=== PATIENT | male | born 1950 | race Caucasian/White ===

== ENCOUNTER → 2016-03-18 | Outpatient (CLI) | payer MEDICARE, MEDICAID | LOC: OD 15:31 | PROVIDERS: ATTEND Internal Medicine | DX: E78.5 Hyperlipidemia, unspecified (principal); Z79.899 Other long term (current) drug therapy; Z53.29 Procedure and treatment not carried out because of patient's decision for other reasons ==

== ENCOUNTER 2016-04-27 09:58 | Observation (INO) | payer MEDICARE, MEDICAID ==
[2016-04-27] MEDS ORDERED: ASPIRIN 81 MG TABLET, CHEWABLE PO ONE (09:59)
--- NOTE | 2016-04-27 10:49 | ER Document Report ---
ED Cardiac - General Chief Complaint: Chest Pain Stated Complaint: CHEST PAIN Information source: Patient Notes: 65-year-old male with past medical history as recorded including COPD, hypertension, high cholesterol, who presents today with the onset around 2 days ago of some substernal nonradiating "sharp", intermittent chest pain. He denies any aggravating relieving factors. He denies any nausea, vomiting, diaphoresis, calf pain or leg swelling above baseline, or worsening cough. Patient has a history of COPD on 3 L nasal cannula at baseline. TRAVEL OUTSIDE OF THE [place] IN LAST 30 DAYS: No - HPI Patient complains to provider of: Chest pain Was the onset of pain: Gradual Is the pain a: New problem Quality of pain: Other - See above Chest pain radiation location: None Severity now: None Severity at worst: Mild Pain level currently: Denies Cardiac risk factors: Hypertension Positive cardiac history: Yes Associated symptoms: Other - See above Exacerbated by: Denies Relieved by: Nothing Similar symptoms previously: No Recently seen / treated by doctor: Yes - Related Data Allergies/Adverse Reactions: lisinopril [Lisinopril] Allergy (Severe, Verified 12/11/13 22:13) angioedema Penicillins Allergy (Unknown, Verified 12/11/13 22:13) Home Medications: Current Home Medications Furosemide [Lasix 40 mg Tablet] 20 mg PO DAILY 04/27/16 [History] Isosorbide Dinitrate 30 mg PO DAILY 04/27/16 [History] Sertraline HCl 1 tab PO DAILY 04/27/16 [History] Past Medical History - General Information source: Patient - Social History Smoking Status: Unknown if Ever Smoked Cigarette use (# per day): No Chew tobacco use (# tins/day): No Smoking Education Provided: No Frequency of alcohol use: None Family History: Reviewed & Not Pertinent - Past Medical History Cardiac Medical History: Reports: Hx Congestive Heart Failure, Hx Hypercholesterolemia, Hx Hypertension, Hx Peripheral Vascular Disease Denies: Hx Atrial Fibrillation, Hx Coronary Artery Disease, Hx Heart Attack, Hx Pulmonary Embolism, Hx Heart Murmur Pulmonary Medical History: Reports: Hx COPD, Hx Pneumonia, Hx Sleep Apnea Denies: Hx Asthma, Hx Bronchitis, Hx Respiratory Failure, Hx Tuberculosis Neurological Medical History: Denies: Hx Cerebrovascular Accident, Hx Seizures Malignancy Medical History: Denies Hx Lung Cancer GI Medical History: Reports: Hx Gastroesophageal Reflux Disease, Hx Ulcer. Denies: Hx Crohn's Disease, Hx Hiatal Hernia, Hx Irritable Bowel, Hx Liver Failure Musculoskeltal Medical History: Reports Hx Arthritis, Denies Hx Fibromyalgia, Denies Hx Multiple Sclerosis, Denies Hx Muscular Dystrophy Psychiatric Medical History: Reports: Hx Depression Denies: Hx Bipolar Disorder, Hx Dementia, Hx Post Traumatic Stress Disorder, Hx Schizophrenia Traumatic Medical History: Denies: Hx Fractures Surgical Hx: Negative Past Surgical History: Denies: Hx Colostomy - Immunizations Hx Diphtheria, Pertussis, Tetanus Vaccination: No Hx Pneumococcal Vaccination: 04/28/11 Review of Systems - Review of Systems Constitutional: denies: Fever EENT: denies: Eye discharge, Nose discharge Cardiovascular: Chest pain. denies: Palpitations, Dizziness Respiratory: denies: Short of breath Gastrointestinal: denies: Vomiting Genitourinary: denies: Dysuria Musculoskeletal: denies: Leg swelling Skin: Other - no hives. denies: Rash Neurological/Psychological: Other - no slurred speech -: Yes All other systems reviewed and negative Physical Exam - Vital signs Vitals: Temp Pulse Resp BP Pulse Ox 98.1 F 71 22 H 116/79 96 04/27/16 10:05 04/27/16 10:05 04/27/16 10:05 04/27/16 10:05 04/27/16 10:05 Notes: Reviewed vital signs and nursing note as charted by RN. CONSTITUTIONAL: Alert and oriented and responds appropriately to questions. Well -appearing; well-nourished HEAD: Normocephalic; atraumatic NECK: Supple without meningismus; non-tender; no cervical lymphadenopathy, no masses CARD: Regular rate and rhythm; no murmurs, no clicks, no rubs, no gallops; symmetric distal pulses RESP: Normal chest excursion without splinting or tachypnea; breath sounds clear and equal bilaterally; no wheezes, no rhonchi, no rales ABD/GI: Normal bowel sounds; soft, non-tender, no rebound, no guarding; elevated BMI BACK: The back appears normal and is non-tender to palpation, there is no CVA tenderness EXT: Normal ROM in all joints; non-tender to palpation; no cyanosis, no effusions, chronic appearing edema, 1+ to bilateral shins. SKIN: Normal color for age and race; warm; dry; good turgor; capillary refill < 2 seconds; no acute lesions noted NEURO: Moves all extremities equally; Motor and sensory function intact PSYCH: The patient's mood and manner are appropriate. Grooming and personal hygiene are appropriate. Course - Re-evaluation Re-evalutation: 04/27/16 10:47 Given the history and physical examination we will order a set of cardiac enzymes, BNP, x-ray of the chest, and reassess. I believe the risk of aortic dissection and pulmonary embolism at this time to be unlikely. Patient endorses actually no shortness of breath above baseline. He denies any calf pain, leg swelling, recent trips or travel. EKG shows a heart of 69, normal sinus rhythm, left axis deviation, no obvious ST elevation or depression. 04/27/16 13:28 Labs as recorded. Patient still denies any active chest pain. X-ray of the chest as recorded. First troponin is negative. Patient will be admitted to the hospitalist for further evaluation and observation. - Vital Signs Vital signs: Temp Pulse Resp BP Pulse Ox 98.1 F 71 18 122/82 96 04/27/16 10:05 04/27/16 10:05 04/27/16 10:16 04/27/16 10:16 04/27/16 10:19 - Laboratory Result Diagrams: 04/27/16 10:30 04/27/16 11:25 Laboratory results interpreted by me: 04/27/16 04/27/16 10:30 11:25 RDW 14.3 H Carbon Dioxide 31 H BUN 21 H Discharge - Discharge Clinical Impression: Chest pain Qualifiers: Chest pain type: unspecified Qualified Code(s): R07.9 - Chest pain, unspecified Condition: Good Disposition: ADMITTED OBSERVATION Admitting Provider: Hospitalist Unit Admitted: Telemetry
[2016-04-27 11:00] LABS: ABSOLUTE EOSINOPHILS # (AUTO) 0.1 10^3/uL (0.0-0.6); ABSOLUTE LYMPHOCYTES (AUTO) 1.6 10^3/uL (0.5-4.7); ABSOLUTE MONOCYTES (AUTO) 0.6 10^3/uL (0.1-1.4); ABSOLUTE NEUT (AUTO) 3.1 10^3/uL (1.7-8.2); BASOPHILS % (AUTO) 0.8 % (0-2); EOSINOPHILS % (AUTO) 2.2 % (0-6); HEMATOCRIT 42.2 % (37.9-51.0); HEMOGLOBIN 13.7 g/dL (13.5-17.0); HGB HCT DIFFERENCE -1.1; LYMPHOCYTES % (AUTO) 28.8 % (13-45); MEAN CORPUSCULAR HEMOGLOBIN 30.1 pg (27.0-33.4); MEAN CORPUSCULAR HGB CONC 32.6 g/dL (32.0-36.0); MEAN CORPUSCULAR VOLUME 92 fl (80-97); MONOCYTES % (AUTO) 11.3 % (3-13); RED BLOOD COUNT 4.56 10^6/uL (4.35-5.55); RED CELL DISTRIBUTION WIDTH 14.3 % (11.5-14.0); SEGMENTED NEUTROPHILS % (AUTO) 56.9 % (42-78); WHITE BLOOD COUNT 5.5 10^3/uL (4.0-10.5)
[2016-04-27 12:03] LABS: ALANINE AMINOTRANSFERASE 27 U/L (21-72); ALBUMIN 3.8 g/dL (3.5-5.0); ALKALINE PHOSPHATASE 92 U/L (38-126); ANION GAP 11 (5-19); ASPARTATE AMINO TRANSFERASE 22 U/L (17-59); BILIRUBIN,DIRECT 0.3 mg/dL (0.0-0.4); BILIRUBIN,TOTAL 0.6 mg/dL (0.2-1.3); BLOOD UREA NITROGEN 21 mg/dL (7-20); CALCIUM 9.4 mg/dL (8.4-10.2); CARBON DIOXIDE 31 mmol/L (22-30); CHLORIDE 101 mmol/L (98-107); CREATINE KINASE 58 U/L (55-170); CREATININE RESULT 0.71 mg/dL (0.52-1.25); GLUCOSE 105 mg/dL (75-110); POTASSIUM 4.9 mmol/L (3.6-5.0); SODIUM 142.6 mmol/L (137-145); TOTAL PROTEIN 6.7 g/dL (6.3-8.2)
[2016-04-27 12:15] LABS: CREATINE KINASE MB 0.93 ng/mL (<4.55)
[2016-04-27 12:16] LABS: TROPONIN I < 0.012 ng/mL
--- NOTE | 2016-04-27 13:11 | EKG REPORT ---
SEVERITY:- OTHERWISE NORMAL ECG - SINUS RHYTHM BORDERLINE LEFT AXIS DEVIATION : Confirmed by: Raul Sinha MD 27-Apr-2016 13:10:10
[2016-04-27] MEDS ORDERED: ACETAMINOPHEN 325 MG TABLET PO PRN (15:31)
[2016-04-27] MEDS ORDERED: ONDANSETRON HCL INJ/PF 4 MG/2 ML SDV IV PRN (15:37)
--- NOTE | 2016-04-27 16:06 | PDOC H&P ---
History of Present Illness Admission Date/PCP: 04/27/16 15:21 DAMIÁN BARTON DO Patient complains of: Chest pain History of Present Illness: SUJATA GONSALEZ is a 65 year old male, w/ HTN, COPD, HLP, PVD came to [facility]. Pt had on and off burning epigastric pain w/ associated CP and tightness, palpitation, but no nausea, vomiting nor SOB. No chills/fever nor chest congestion. Occasional leg pain and on and off LE edema. Pain sometimes occur after eating. Symptoms recur last night and the patient went to sleep and woke up fine. After breakfast, he started to developed the pain again prompting ER visit. Pt given aspirin and was referred for observation. Past Medical History Cardiac Medical History: Reports: Congestive Heart Failure, Hyperlipidema, Hypertension, Peripheral Vascular Disease Denies: Atrial Fibrillation, Coronary Artery Disease, Myocardial Infarction, Pulmonary Embolism, Heart Murmur Pulmonary Medical History: Reports: Chronic Obstructive Pulmonary Disease (COPD) , Pneumonia, Respiratory Failure - On home oxygen, Sleep Apnea Denies: Asthma, Bronchitis, Tuberculosis Neurological Medical History: Denies: Seizures Malignancy Medical History: Denies: Lung Cancer GI Medical History: Reports: Gastroesophageal Reflux Disease Denies: Crohn's Disease, Hiatal Hernia Musculoskeltal Medical History: Reports: Arthritis Denies: Fibromyalgia Psychiatric Medical History: Reports: Depression Denies: Bipolar Disorder, Dementia, Post Traumatic Stress Disorder Past Surgical History Past Surgical History: Denies any recent surgeries Past Surgical History: Denies: Colostomy Social History Information Source: Patient Smoking Status: Never Smoker Frequency of Alcohol Use: None Hx Recreational Drug Use: No Drugs: None Hx Prescription Drug Abuse: No - Advance Directive Resuscitation Status: Full Code Family History Family History: COPD, Hypertension Parental Family History Reviewed: Yes Children Family History Reviewed: Yes Sibling(s) Family History Reviewed.: Yes Medication/Allergy Home Medications: Carvedilol [Coreg 3.125 mg Tablet] 3.125 mg PO Q12 tablet 09/11/15 Famotidine [Pepcid 20 mg Tablet] 20 mg PO Q12 tablet 09/11/15 Ipratropium/Albuterol Sulfate [Combivent Respimat 4 gm Mdi] 1 puff IH Q6 aer.w.adap 09/11/15 Potassium Chloride [Klor-Con 10 Meq Tablet.sa] 40 meq PO WBRKFST tablet.sa 05/23 Atorvastatin Calcium [Lipitor 40 mg Tablet] 40 mg PO DAILY 04/27/16 Furosemide [Lasix] 20 mg PO DAILY 04/27/16 Isosorbide Dinitrate 30 mg PO DAILY 04/27/16 Sertraline HCl 50 mg PO DAILY 04/27/16 Allergies/Adverse Reactions: lisinopril [Lisinopril] Allergy (Severe, Verified 12/11/13 22:13) angioedema Penicillins Allergy (Unknown, Verified 12/11/13 22:13) Review of Systems Constitutional: ABSENT: chills, fever(s), headache(s), night sweats, weight gain , weight loss Eyes: ABSENT: visual disturbances Ears: ABSENT: hearing changes Nose, Mouth, and Throat: ABSENT: mouth pain, sore throat Cardiovascular: PRESENT: chest pain, dyspnea on exertion - Chronic, edema - Chronic, palpitations. ABSENT: orthropnea Respiratory: ABSENT: cough, dyspnea, hemoptysis, sputum Gastrointestinal: PRESENT: abdominal pain - Epigastric discomfort. ABSENT: constipation, diarrhea, hematemesis, hematochezia, melena, nausea, vomiting Genitourinary: ABSENT: difficulty urinating, dysuria, hematuria Musculoskeletal: ABSENT: joint swelling Integumentary: ABSENT: pruritus, rash, wounds Neurological: ABSENT: abnormal gait, abnormal speech, confusion, dizziness, focal weakness, syncope Psychiatric: ABSENT: anxiety, depression, homidical ideation, suicidal ideation Endocrine: ABSENT: cold intolerance, heat intolerance, polydipsia, polyuria Hematologic/Lymphatic: ABSENT: easy bleeding, easy bruising Physical Exam Vital Signs: Temp Pulse Resp BP Pulse Ox 98.1 F 82 16 125/68 96 04/27/16 14:41 04/27/16 14:41 04/27/16 15:01 04/27/16 15:01 04/27/16 15:01 General appearance: PRESENT: no acute distress, cooperative, morbidly obese Head exam: PRESENT: atraumatic, normocephalic Eye exam: PRESENT: conjunctiva pink, EOMI, PERRLA. ABSENT: scleral icterus Ear exam: PRESENT: normal external ear exam. ABSENT: drainage Mouth exam: PRESENT: moist, neck supple, tongue midline Throat exam: ABSENT: post pharyngeal erythema, tonsillar erythema Neck exam: ABSENT: carotid bruit, JVD, lymphadenopathy, thyromegaly Respiratory exam: PRESENT: clear to auscultation jose. ABSENT: rales, rhonchi, wheezes Cardiovascular exam: PRESENT: RRR, other - Slightly distant heart sounds. ABSENT: diastolic murmur, rubs, systolic murmur Pulses: PRESENT: normal dorsalis pedis pul Vascular exam: PRESENT: normal capillary refill GI/Abdominal exam: PRESENT: normal bowel sounds, soft. ABSENT: distended - Obese, guarding, mass, organolmegaly, rebound, tenderness Rectal exam: PRESENT: deferred Extremities exam: PRESENT: full ROM, +1 edema - Bilateral, other - Homans sign negative. ABSENT: calf tenderness, clubbing Neurological exam: PRESENT: alert, awake, oriented to person, oriented to place , oriented to time, oriented to situation, CN II-XII grossly intact. ABSENT: motor sensory deficit Psychiatric exam: PRESENT: appropriate affect, normal mood. ABSENT: homicidal ideation, suicidal ideation Skin exam: PRESENT: dry, intact, warm. ABSENT: cyanosis, rash Assessment & Plan - Diagnosis (1) Chest pain Qualifiers: Chest pain type: unspecified Qualified Code(s): R07.9 - Chest pain, unspecified Is this a current diagnosis for this admission?: Yes (2) COPD (chronic obstructive pulmonary disease) Qualifiers: COPD type: unspecified COPD Qualified Code(s): J44.9 - Chronic obstructive pulmonary disease, unspecified Is this a current diagnosis for this admission?: Yes (3) Hypertension Qualifiers: Hypertension type: essential hypertension Qualified Code(s): I10 - Essential (primary) hypertension Is this a current diagnosis for this admission?: Yes (4) Hyperlipidemia Qualifiers: Hyperlipidemia type: unspecified Qualified Code(s): E78.5 - Hyperlipidemia, unspecified Is this a current diagnosis for this admission?: Yes (5) Peripheral vascular disease Is this a current diagnosis for this admission?: Yes (6) Diastolic CHF Qualifiers: Congestive heart failure chronicity: unspecified congestive heart failure chronicity Qualified Code(s): I50.30 - Unspecified diastolic (congestive ) heart failure Is this a current diagnosis for this admission?: Yes (7) Obstructive sleep apnea Is this a current diagnosis for this admission?: Yes (8) Chronic hypoxemic respiratory failure Is this a current diagnosis for this admission?: Yes (9) Morbid obesity with BMI of 45.0-49.9, adult Is this a current diagnosis for this admission?: Yes (10) Depression Qualifiers: Depression Type: unspecified Qualified Code(s): F32.9 - Major depressive disorder, single episode, unspecified Is this a current diagnosis for this admission?: Yes (11) Peptic ulcer disease Is this a current diagnosis for this admission?: Yes - Time Time Spent: 30 to 50 Minutes - Plan Summary Plan Summary: Admit to observation. Start aspirin and continue nitrates. Give supplemental oxygen, obtain d-dimer, serial cardiac enzymes. Stress test in am when enzymes are negative. DVT prophylaxis with lovenox. Further testing depends on the initial evaluation as outlined above.
[2016-04-27] MEDS ORDERED: ENOXAPARIN SODIUM INJ 40 MG/0.4 ML DISP.SYRIN SUBCUT ONE (16:30)
[2016-04-27] MEDS: DOCUSATE SODIUM 100 MG CAPSULE PO SCH (18:41)
[2016-04-27] MEDS: LANSOPRAZOLE 30 MG TAB.RAP.DR PO SCH (18:41)
[2016-04-27] MEDS: IPRATROPIUM/ALBUTEROL 120 PUFF/4 GM MDI IH SCH (18:42)
[2016-04-27] MEDS: FAMOTIDINE 20 MG TABLET PO SCH (22:11)
[2016-04-27] MEDS: ATORVASTATIN CALCIUM 40 MG TABLET PO SCH (22:11)
[2016-04-27] MEDS: CARVEDILOL 3.125 MG TABLET PO SCH (22:11)
[2016-04-28] MEDS: IPRATROPIUM/ALBUTEROL 120 PUFF/4 GM MDI IH SCH ×4 (00:18→17:30)
[2016-04-28] MEDS: LANSOPRAZOLE 30 MG TAB.RAP.DR PO SCH ×2 (05:25→17:30)
[2016-04-28] MEDS ORDERED: (PENDING PHARMACY ID) (Isosorbide Dinitrate [Isosorbide Dinitrate] 30 MG) PO SCH (10:00)
[2016-04-28] MEDS: DOCUSATE SODIUM 100 MG CAPSULE PO SCH ×2 (10:51→17:30)
[2016-04-28] MEDS: ASPIRIN 81 MG TABLET, CHEWABLE PO SCH (10:52)
[2016-04-28] MEDS: POTASSIUM CHLORIDE 10 MEQ TABLET.SA PO SCH (10:52)
[2016-04-28] MEDS: CARVEDILOL 3.125 MG TABLET PO SCH ×2 (10:52→22:41)
[2016-04-28] MEDS: FAMOTIDINE 20 MG TABLET PO SCH ×2 (10:53→22:41)
[2016-04-28] MEDS: ENOXAPARIN SODIUM INJ 40 MG/0.4 ML DISP.SYRIN SUBCUT SCH (10:53)
[2016-04-28] MEDS: ISOSORBIDE DINITRATE 10 MG TABLET PO SCH (10:53)
[2016-04-28] MEDS: SERTRALINE HCL 50 MG TABLET PO SCH (10:53)
[2016-04-28] MEDS: FUROSEMIDE 20 MG TABLET PO SCH (10:53)
--- NOTE | 2016-04-28 13:53 | PDOC PROGRESS REPORT ---
Subjective Progress Note for:: 04/28/16 Subjective:: Patient denies any chest pain or shortness of breath. No PND or orthopnea. No nausea or vomiting. No diaphoresis. CT scan of the chest did not reveal any pulmonary embolism but did show infiltrate and/or atelectasis. Stress lab reports that patient requires 48 hours to complete the stress test procedure. Physical Exam Vital Signs: Temp Pulse Resp BP Pulse Ox 98.3 F 70 19 158/73 H 95 04/28/16 04:19 04/28/16 07:00 04/28/16 04:19 04/28/16 04:19 04/28/16 12:58 Intake & Output 04/27/16 04/28/16 04/29/16 06:59 06:59 06:59 Intake Total 1100 Balance 1100 Weight 163.3 kg General appearance: PRESENT: no acute distress, cooperative, morbidly obese Head exam: PRESENT: normocephalic Eye exam: PRESENT: EOMI, PERRLA. ABSENT: scleral icterus Mouth exam: PRESENT: moist, neck supple Neck exam: ABSENT: JVD Respiratory exam: PRESENT: clear to auscultation jose. ABSENT: rhonchi, wheezes Cardiovascular exam: PRESENT: RRR. ABSENT: gallop GI/Abdominal exam: PRESENT: soft. ABSENT: distended - Morbid obesity, tenderness Extremities exam: ABSENT: pedal edema Neurological exam: PRESENT: alert, awake, oriented to person, oriented to place , oriented to time, oriented to situation Skin exam: PRESENT: dry, warm. ABSENT: cyanosis Results Laboratory Results: 04/27/16 04/27/16 04/27/16 16:30 16:30 19:27 Creatine Kinase 61 86 Troponin I < 0.012 04/27/16 19:27 Creatine Kinase Troponin I < 0.012 Impressions: Chest/Abdomen CTA 04/27/16 00:00 IMPRESSION: Airspace consolidation in the left lung base which could represent atelectatic changes or pneumonic infiltrate. No pleural effusions are identified. No pneumothorax is seen. No evidence for pulmonary embolic disease. Other findings as noted above Assessment & Plan - Diagnosis (1) Chest pain Qualifiers: Chest pain type: unspecified Qualified Code(s): R07.9 - Chest pain, unspecified Is this a current diagnosis for this admission?: Yes (2) COPD (chronic obstructive pulmonary disease) Qualifiers: COPD type: unspecified COPD Qualified Code(s): J44.9 - Chronic obstructive pulmonary disease, unspecified Is this a current diagnosis for this admission?: Yes (3) Hypertension Qualifiers: Hypertension type: essential hypertension Qualified Code(s): I10 - Essential (primary) hypertension Is this a current diagnosis for this admission?: Yes (4) Hyperlipidemia Qualifiers: Hyperlipidemia type: unspecified Qualified Code(s): E78.5 - Hyperlipidemia, unspecified Is this a current diagnosis for this admission?: Yes (5) Peripheral vascular disease Is this a current diagnosis for this admission?: Yes (6) Diastolic CHF Qualifiers: Congestive heart failure chronicity: unspecified congestive heart failure chronicity Qualified Code(s): I50.30 - Unspecified diastolic (congestive ) heart failure Is this a current diagnosis for this admission?: Yes (7) Obstructive sleep apnea Is this a current diagnosis for this admission?: Yes (8) Chronic hypoxemic respiratory failure Is this a current diagnosis for this admission?: Yes (9) Morbid obesity with BMI of 45.0-49.9, adult Is this a current diagnosis for this admission?: Yes (10) Depression Qualifiers: Depression Type: unspecified Qualified Code(s): F32.9 - Major depressive disorder, single episode, unspecified Is this a current diagnosis for this admission?: Yes (11) Peptic ulcer disease Is this a current diagnosis for this admission?: Yes - Time Time Spent with patient: 15-24 minutes - Plan Summary Plan Summary: Patient's CT scan findings likely atelectasis. Will do incentive spirometry. Patient denies any symptoms of respiratory tract infection at this time. WBC has been normal. Patient is afebrile. Awaiting stress test result. It will be 2 stages as reported. Continue other medication is supportive care.
[2016-04-28] MEDS: ATORVASTATIN CALCIUM 40 MG TABLET PO SCH (22:41)
[2016-04-29] MEDS: IPRATROPIUM/ALBUTEROL 120 PUFF/4 GM MDI IH SCH ×4 (00:54→17:16)
[2016-04-29] MEDS: LANSOPRAZOLE 30 MG TAB.RAP.DR PO SCH ×2 (05:35→17:15)
[2016-04-29] MEDS: ENOXAPARIN SODIUM INJ 40 MG/0.4 ML DISP.SYRIN SUBCUT SCH (08:10)
[2016-04-29] MEDS: POTASSIUM CHLORIDE 10 MEQ TABLET.SA PO SCH (08:11)
[2016-04-29] MEDS: FUROSEMIDE 20 MG TABLET PO SCH (12:38)
[2016-04-29] MEDS: ASPIRIN 81 MG TABLET, CHEWABLE PO SCH (12:41)
[2016-04-29] MEDS: DOCUSATE SODIUM 100 MG CAPSULE PO SCH ×2 (12:41→17:15)
[2016-04-29] MEDS: CARVEDILOL 3.125 MG TABLET PO SCH (12:41)
[2016-04-29] MEDS: SERTRALINE HCL 50 MG TABLET PO SCH (12:41)
[2016-04-29] MEDS: FAMOTIDINE 20 MG TABLET PO SCH (12:41)
[2016-04-29] MEDS: ISOSORBIDE DINITRATE 10 MG TABLET PO SCH (12:42)
--- NOTE | 2016-04-29 13:16 | Physician Advisory Note ---
Physician Advisor ProgressNote .: Pursuant to the plan for Knapp Jun, I have reviewed the medical record for this patient. Physician Advisor Statement: Please specify: 1. most likely cause of CP: "CP, suspect likely due to ____" 2. "chronic diast CHF" [coders not allowed to assume chronicity] Thanks! CK
[2016-04-29] MEDS ORDERED: REGADENOSON INJ 0.4 MG/5 ML DISP.SYRIN IV ONE (13:19)
[2016-04-29] MEDS ORDERED: AMINOPHYLLINE INJ/PF 250 MG/10 ML SDV IV ONE (13:19)
--- NOTE | 2016-04-29 16:17 | DRAGON STRESS TEST REPORT ---
INTRAVENOUS LEXISCAN CARDIOLITE STRESS TEST USING SINGLE PHOTON EMMISION COMPUTERIZED TOMOGRAPHIC. DATE OF PROCEDURE: April 29, 2016 INDICATION : Chest pain CARDIAC RISK FACTORS: Hypertension, dyslipidemia RESTING EKG: Sinus rhythm, no Baseline ST segment changes noted. STRESS EKG: No significant changes noted with LexiScan bolus REASON FOR TERMINATION: Protocol. PROCEDURE REPORT: Baseline heart rate 66 beats per minute with blood pressure of 131/81. Patient had no significant complaints. Heart rate at 2 minutes post bolus 89 with a blood pressure of 117/70. 3 minutes post bolus heart rate 85 with blood pressure of 118/69. No significant EKG changes were noted. Patient had no significant complaints during the procedure or postprocedure. Patient injected with Aminophyllin 75 mg at 3 minutes or later after Lexiscan bolus. CONCLUSIONS: Normal EKG and hemodynamic response to IV LexiScan. NUCLEAR DATA: 2 day protocol, rest and stress. At rest the patient was given 42.2 millicuries of technetium 99 sestamibi injected intravenously. As per protocol rest gated SPECT images were obtained. Subsequently the patient was given intravenous LexiScan at a dose of 0.4 mg in 5 mL intravenously, followed by flush with normal saline. Subsequently the stress dose of 43.7 millicuries of technetium 99 sestamibi was injected intravenously. As per protocol stress gated images were obtained. NUCLEAR INTERPRETATION: Both raw and processed data were used for interpretation. Visual, qualitative, computer-generated quantitative data was used. There was good myocardial uptake of technetium compound. Motion artifact and soft tissue attenuations were noted. Increased visceral uptake was noted. No definitive areas of transient perfusion defect noted. No definitive areas of fixed perfusion defect or scars noted. EKG gated imaging showed LV EF at 45 %, rest and stress gated EF similar visually. T. I D. ratio was 0.59. Lung heart ratio noted to be within normal limits 0.34. No significant extracardiac and abnormal radiotracer activities were noted. RV free wall uptake was noted to be mildly increased. IMPRESSION: Also refer to comments under nuclear interpretation. Also test results needs to be interpreted in the context of pretest probability. 1. There is no definitive scintigraphic evidence of LexiScan induced myocardial ischemia. 2. There is no definitive scintigraphic evidence of myocardial infarction/scar. 3. EKG gated imaging shows left ejection fraction of approximately 45 % with mild diffuse hypokinesia. RV uptake noted to be increased. 4. Clinical correlation requested as occasionally single vessel disease or balanced ischemia could be missed. In approximately 10% of the cases Lexiscan may not cause adequate vasodilatory stress. RECOMMENDATIONS: Aggressive risk factor modification, medical therapy. Clinical correlation with echocardiogram derived ejection fraction. Inability to exercise by itself can lead to increased cardiovascular event risks. Consider cardiology consultation and or follow-up if clinically indicated. I AM AVAILABLE FOR CARDIOLOGY CONSULTATION AND FOLLOWUP IF REQUESTED BY PMD Jacquelin Garvin M.D., [employer] compressor assembler, Board certified in cardiovascular diseases, Nuclear cardiology, Echocardiography Cardiac CT and cardiac MRI Ph. [phone] [facility] [facility]
--- NOTE | 2016-04-29 17:21 | PDOC DISCHARGE SUMMARY ---
General - Admit/Disc Date/PCP Admission Date/Primary Care Provider: 04/27/16 15:31 DAMIÁN BARTON, Discharge Date: 04/29/16 - Discharge Diagnosis (1) Chest pain Is this a current diagnosis for this admission?: Yes (2) COPD (chronic obstructive pulmonary disease) Is this a current diagnosis for this admission?: Yes (3) Hypertension Is this a current diagnosis for this admission?: Yes (4) Hyperlipidemia Is this a current diagnosis for this admission?: Yes (5) Peripheral vascular disease Is this a current diagnosis for this admission?: Yes (6) Diastolic CHF Is this a current diagnosis for this admission?: Yes (7) Obstructive sleep apnea Is this a current diagnosis for this admission?: Yes (8) Chronic hypoxemic respiratory failure Is this a current diagnosis for this admission?: Yes (9) Morbid obesity with BMI of 45.0-49.9, adult Is this a current diagnosis for this admission?: Yes (10) Depression Is this a current diagnosis for this admission?: Yes (11) Peptic ulcer disease Is this a current diagnosis for this admission?: Yes - Additional Information Resuscitation Status: Full Code Discharge Diet: Cardiac - low-fat low-salt Discharge Activity: Activity As Tolerated, Balance Activity w/Rest Home Medications: Carvedilol [Coreg 3.125 mg Tablet] 3.125 mg PO Q12 tablet 09/11/15 Famotidine [Pepcid 20 mg Tablet] 20 mg PO Q12 tablet 09/11/15 Ipratropium/Albuterol Sulfate [Combivent Respimat 4 gm Mdi] 1 puff IH Q6 aer.w.adap 09/11/15 Potassium Chloride [Klor-Con 10 Meq Tablet.sa] 40 meq PO WBRKFST tablet.sa 05/23 Atorvastatin Calcium [Lipitor 40 mg Tablet] 40 mg PO DAILY 04/27/16 Furosemide [Lasix] 20 mg PO DAILY 04/27/16 Isosorbide Dinitrate 30 mg PO DAILY 04/27/16 Sertraline HCl 50 mg PO DAILY 04/27/16 Aspirin [Aspirin 81 mg Chewable Tablet] 81 mg PO DAILY tab.chew 04/29/16 Additional Information: Follow-up with Dr. Garvin for possible sleep study History of Present Illness Patient complains of: Chest pain History of Present Illness: SUJATA GONSALEZ is a 65 year old male, w/ HTN, COPD, HLP, PVD came to hospital [facility] . Pt had on and off burning epigastric pain w/ associated CP and tightness, palpitation, but no nausea, vomiting nor SOB. No chills/fever nor chest congestion. Occasional leg pain and on and off LE edema. Pain sometimes occur after eating. Symptoms recur last night and the patient went to sleep and woke up fine. After breakfast, he started to developed the pain again prompting ER visit. Pt given aspirin and was referred for observation. Hospital Course Hospital Course: The patient was admitted to observation. A d-dimer was obtained which is mildly elevated. CT scan of the chest did not reveal pulmonary embolism, did show atelectases or infiltrate. Patient denies any symptoms of respiratory tract infection and no fever was noted. WBC was normal. Likely finding is atelectasis. Patient was placed on antiplatelet therapy. DVT prophylaxis with Lovenox was placed. Supplemental oxygen was given. Stress test was eventually performed showing no reversible ischemia. The patient's chest pain resolved. Patient was advised to see cardiology on an outpatient basis for follow-up and possible sleep study. The rest of the hospital stays unremarkable. Physical Exam Vital Signs: Temp Pulse Resp BP Pulse Ox 98.1 F 75 16 118/61 98 04/29/16 15:33 04/29/16 15:33 04/29/16 15:33 04/29/16 15:33 04/29/16 15:33 Intake & Output 04/28/16 04/29/16 04/30/16 06:59 06:59 06:59 Intake Total 1100 840 240 Balance 1100 840 240 Weight 163.3 kg 163.3 kg General appearance: PRESENT: no acute distress, cooperative, morbidly obese Head exam: PRESENT: normocephalic Eye exam: PRESENT: EOMI, PERRLA Mouth exam: PRESENT: moist, neck supple Neck exam: ABSENT: JVD Respiratory exam: PRESENT: clear to auscultation jose. ABSENT: rhonchi, wheezes Cardiovascular exam: PRESENT: RRR. ABSENT: gallop GI/Abdominal exam: PRESENT: hypoactive bowel sounds, soft, other - Obese and soft. ABSENT: tenderness Extremities exam: PRESENT: other - Trace lower extremity edema Neurological exam: PRESENT: alert, awake, oriented to person, oriented to place , oriented to time, oriented to situation Skin exam: PRESENT: dry, warm. ABSENT: cyanosis Results Laboratory Results: 04/27/16 04/27/16 04/27/16 16:30 16:30 19:27 Creatine Kinase 61 86 Troponin I < 0.012 04/27/16 19:27 Creatine Kinase Troponin I < 0.012 Impressions: Chest/Abdomen CTA 04/27/16 00:00 IMPRESSION: Airspace consolidation in the left lung base which could represent atelectatic changes or pneumonic infiltrate. No pleural effusions are identified. No pneumothorax is seen. No evidence for pulmonary embolic disease. Other findings as noted above Qualifiers PATEINT BEING DISCHARGED WITH ANY OF THE FOLLOWING DIAGNOSIS?: No Plan Discharge Plan: Follow-up with primary care physician in one week. Follow-up with Dr. Garvin in 1-2 weeks. Time Spent: Less than 30 Minutes
[2016-04-29 18:25] VITALS: BP 124/76
== END 2016-04-29 18:30 | disposition home or self-care (01) ==
LOC: ER 09:58 → UNDOADMOB 13:40 → EH 13:40 → UNDOADMOB 15:21 → EH 15:31 → 4W 16:09
DX: R07.9 Chest pain, unspecified (principal); J44.9 Chronic obstructive pulmonary disease, unspecified; I10 Essential (primary) hypertension; E78.5 Hyperlipidemia, unspecified; I73.9 Peripheral vascular disease, unspecified; I50.30 Unspecified diastolic (congestive) heart failure; G47.33 Obstructive sleep apnea (adult) (pediatric); J96.91 Respiratory failure, unspecified with hypoxia; E66.01 Morbid (severe) obesity due to excess calories; Z68.42 Body mass index [BMI] 45.0-49.9, adult; F32.9 Major depressive disorder, single episode, unspecified; K27.9 Peptic ulcer, site unspecified, unspecified as acute or chronic, without hemorrhage or perforation
CPT/HCPCS: 93005; 99285; 36415; 82553; 82550; 85025; 80053; 84484; 85379; 83880; 93017; 71010; 78452; 71275; 94799; 93010; A9500; J2785; A9270 ×21; J3490 ×5; J1650 ×3; J0280; Q9969; G0378

== ENCOUNTER → 2016-06-16 | Outpatient (CLI) | payer MEDICARE, MEDICAID ==
[2016-06-16 12:11] LABS: ARTERIAL BLOOD BASE EXCESS 7.4 mmol/L; ARTERIAL BLOOD O2 SATURATION 95.7 % (94-98)
== END ==
LOC: OD 11:29
PROVIDERS: ATTEND Internal Medicine Pulmonary Disease
DX: J96.20 Acute and chronic respiratory failure, unspecified whether with hypoxia or hypercapnia (principal)
CPT/HCPCS: 36600; 71020; 82803

== ENCOUNTER 2016-07-27 17:51 | Emergency (ER) | payer MEDICARE, MEDICAID ==
[2016-07-27 18:29] LABS: ABSOLUTE EOSINOPHILS # (AUTO) 0.2 10^3/uL (0.0-0.6); ABSOLUTE LYMPHOCYTES (AUTO) 2.1 10^3/uL (0.5-4.7); ABSOLUTE MONOCYTES (AUTO) 0.7 10^3/uL (0.1-1.4); ABSOLUTE NEUT (AUTO) 2.6 10^3/uL (1.7-8.2); BASOPHILS % (AUTO) 0.9 % (0-2); EOSINOPHILS % (AUTO) 2.9 % (0-6); HEMATOCRIT 41.5 % (37.9-51.0); HEMOGLOBIN 13.4 g/dL (13.5-17.0); HGB HCT DIFFERENCE -1.3; MEAN CORPUSCULAR HEMOGLOBIN 29.6 pg (27.0-33.4); MEAN CORPUSCULAR HGB CONC 32.3 g/dL (32.0-36.0); MEAN CORPUSCULAR VOLUME 92 fl (80-97); MONOCYTES % (AUTO) 12.2 % (3-13); RED BLOOD COUNT 4.53 10^6/uL (4.35-5.55); RED CELL DISTRIBUTION WIDTH 13.9 % (11.5-14.0); WHITE BLOOD COUNT 5.6 10^3/uL (4.0-10.5)
[2016-07-27 18:45] LABS: ANION GAP 10 (5-19); BLOOD UREA NITROGEN 15 mg/dL (7-20); CALCIUM 9.1 mg/dL (8.4-10.2); CARBON DIOXIDE 31 mmol/L (22-30); CHLORIDE 98 mmol/L (98-107); CREATININE RESULT 0.72 mg/dL (0.52-1.25); GLUCOSE 101 mg/dL (75-110); POTASSIUM 4.7 mmol/L (3.6-5.0); SODIUM 138.7 mmol/L (137-145)
--- NOTE | 2016-07-27 18:48 | RADIOLOGY REPORT (SQ) ---
EXAM DESCRIPTION: CHEST SINGLE VIEW COMPLETED DATE/TIME: 07/27/2016 6:42 pm REASON FOR STUDY: chastity, cp COMPARISON: 06/16/2016 EXAM PARAMETERS: NUMBER OF VIEWS: One view. TECHNIQUE: Single frontal radiographic view of the chest acquired. RADIATION DOSE: NA LIMITATIONS: None. FINDINGS: LUNGS AND PLEURA: Basilar opacities is consistent with atelectasis. Lung callaway are other wade clear. There appeared re- chronic changes in the left costophrenic angle. Small left effusion cannot be excluded. MEDIASTINUM AND HILAR STRUCTURES: No masses. Contour normal. HEART AND VASCULAR STRUCTURES: Stable in appearance. BONES: No acute findings. HARDWARE: None in the chest. OTHER: No other significant finding. IMPRESSION: Relatively stable chest with basilar atelectasis. There chronic changes in the left cos tophrenic angle stable from June of this year. TECHNICAL DOCUMENTATION: JOB ID: [id number]
--- NOTE | 2016-07-27 18:49 | ER Document Report ---
ED General - General Chief Complaint: Shortness Of Breath Stated Complaint: SHORTNESS OF BREATH Time Seen by Provider: 07/27/16 18:21 Notes: Patient is a 65-year-old male with past medical history of COPD, chronic oxygen dependence, morbid obesity, peripheral vascular disease who presents with an episode in which he coughed up a small amount, approximately a teaspoon of clotted blood. Patient reports that he has had a chronic cough ever since he had a pneumonia almost 1 year ago. Denies any prior episodes of hemoptysis. Since that he has shortness of breath at baseline that is not new or different today. Likewise he notes that he chronically has some diffuse chest wall discomfort that has been present for a long period of time and again is not new or different today. His main reason for coming to the emergency department today is his concern regarding the small volume hemoptysis. He has no history of DVT or pulmonary embolus. He denies any abdominal pain. Nothing is improved or worsened his symptoms. He has not seen his primary care doctor regarding today's concerns. TRAVEL OUTSIDE OF THE [place] IN LAST 30 DAYS: No - Related Data Allergies/Adverse Reactions: lisinopril [Lisinopril] Allergy (Severe, Verified 07/27/16 18:28) angioedema Penicillins Allergy (Unknown, Verified 07/27/16 18:28) Home Medications: Current Home Medications Glycopyrrolate/Formoterol Fum [Bevespi Aerosphere Inhaler] 2 puff IH DAILY 07/27 [History] Triamcinolone Aceton/Silicones [Dermazone 0.1% Kit] 1 each TP BID 07/27/16 [ History] Past Medical History - General Information source: Patient - Social History Smoking Status: Former Smoker Frequency of alcohol use: None Drug Abuse: None Lives with: Alone Family History: COPD, Hypertension - Past Medical History Cardiac Medical History: Reports: Hx Congestive Heart Failure, Hx Hypercholesterolemia, Hx Hypertension, Hx Peripheral Vascular Disease Denies: Hx Atrial Fibrillation, Hx Coronary Artery Disease, Hx Heart Attack, Hx Pulmonary Embolism, Hx Heart Murmur Pulmonary Medical History: Reports: Hx COPD, Hx Pneumonia, Hx Respiratory Failure - On home oxygen, Hx Sleep Apnea Denies: Hx Asthma, Hx Bronchitis, Hx Tuberculosis Neurological Medical History: Denies: Hx Cerebrovascular Accident, Hx Seizures Malignancy Medical History: Denies Hx Lung Cancer GI Medical History: Reports: Hx Gastroesophageal Reflux Disease, Hx Ulcer. Denies: Hx Crohn's Disease, Hx Hiatal Hernia, Hx Irritable Bowel, Hx Liver Failure Musculoskeltal Medical History: Reports Hx Arthritis, Denies Hx Fibromyalgia, Denies Hx Multiple Sclerosis, Denies Hx Muscular Dystrophy Psychiatric Medical History: Reports: Hx Depression Denies: Hx Bipolar Disorder, Hx Dementia, Hx Post Traumatic Stress Disorder, Hx Schizophrenia Traumatic Medical History: Denies: Hx Fractures Surgical Hx: Negative Past Surgical History: Denies: Hx Colostomy - Immunizations Hx Diphtheria, Pertussis, Tetanus Vaccination: No Hx Pneumococcal Vaccination: 04/28/11 Review of Systems - Review of Systems Notes: Constitutional: Negative for fever. HENT: Negative for sore throat. Eyes: Negative for visual changes. Cardiovascular: Positive for chest pain. Respiratory: Positive for cough and a single episode of small-volume hemoptysis Gastrointestinal: Negative for abdominal pain, vomiting or diarrhea. Genitourinary: Negative for dysuria. Musculoskeletal: Negative for back pain. Skin: Negative for rash. Neurological: Negative for headaches, weakness or numbness. 10 point ROS negative except as marked above and in HPI. Physical Exam - Vital signs Vitals: Pulse Ox 94 07/27/16 17:54 Interpretation: Normal Notes: PHYSICAL EXAMINATION: GENERAL: Well-appearing, well-nourished and in no acute distress. Morbidly obese HEAD: Atraumatic, normocephalic. EYES: Pupils equal round and reactive to light, extraocular movements intact, sclera anicteric, conjunctiva are normal. ENT: nares patent, oropharynx clear without exudates. Moderately dry mucous membranes. NECK: Normal range of motion, supple without lymphadenopathy LUNGS: Mildly diminished breath sounds at the left base. Scattered expiratory wheezing HEART: Regular rate and rhythm without murmurs ABDOMEN: Obese abdomen. Soft, nontender, normoactive bowel sounds. No guarding , no rebound. No masses appreciated. EXTREMITIES: Normal range of motion, no pitting or edema. No cyanosis. NEUROLOGICAL: No focal neurological deficits. Moves all extremities spontaneously and on command. PSYCH: Normal mood, normal affect. SKIN: Warm, Dry, normal turgor, no rashes or lesions noted. Course - Re-evaluation Re-evalutation: 07/27/16 18:47 Patient is a 65-year-old male presenting with concerns of a small volume of hemoptysis. Patient states that he coughed up approximately a teaspoon of blood. He has had a chronic cough since being diagnosed with a bilateral pneumonia apparently a year ago. He denies any increased shortness of breath today relative to his chronic shortness of breath requires 3 L of supplemental oxygen. Patient is overall well in appearance but is noted to be morbidly obese with obvious vascular insufficiency in all 4 extremities. Vitals at time of assessment are within normal limits. He has not had any additional hemoptysis. Lungs are clear bilaterally after he received 2 albuterol and Atrovent treatment by EMS. Patient also notes that he has had intermittent chest discomfort for the past several months not new, different or more concerning for him today. Will obtain chest x-ray, basic labs, and reassess. Not suspect an acute pulmonary embolus, aortic dissection, ACS at this time based on exam and history as well as vitals. I suspect patient likely has a component of bronchial irritation after recurrent cough for the past several months. 07/27/16 19:25 Chest x-ray, EKG, labs all unremarkable. Troponin negative. Patient had a normal Cardiolite stress test just 3 months ago and I do not believe the etiology of his presentation is cardiac in origin. Remains without tachypnea, tachycardia or further episodes of hemoptysis. At this time will discharge with return precautions and follow-up recommendations. Verbal discharge instructions given a the bedside and opportunity for questions given. Medication warnings reviewed. Patient is in agreement with this plan and has verbalized understanding of return precautions and the need for primary care follow-up in the next 24-72 hours. - Vital Signs Vital signs: Temp Pulse Resp BP Pulse Ox 98.3 F 19 121/64 94 07/27/16 20:20 07/27/16 20:20 07/27/16 20:20 07/27/16 20:20 - Laboratory Result Diagrams: 07/27/16 18:08 07/27/16 18:08 Laboratory results interpreted by me: 07/27/16 07/27/16 18:08 18:08 Hgb 13.4 L Carbon Dioxide 31 H - Diagnostic Test Radiology reviewed: Image reviewed, Reports reviewed Radiology results interpreted by me: 07/27/16 19:26 Chest x-ray: No acute infiltrate - EKG Interpretation by Me Additional EKG results interpreted by me: 06/20/17 19:26 Normal sinus rhythm. Rate 69. No ST elevations or depressions. QTC is 403. Discharge - Discharge Clinical Impression: Cough with hemoptysis, Shortness of breath Condition: Good Disposition: HOME, SELF-CARE Additional Instructions: Please follow-up with your primary doctor and incident response coordinator within the next 3-4 days. Your labs and chest x-ray today are without concerning findings. Take the Tessalon Perles as needed for persistent coughing. Return if you develop increased shortness of breath, chest pain, pass out, have additional bloody sputum, or any other symptoms that are worrisome to you. Prescriptions: Benzonatate [Tessalon Perle 100 mg Capsule] 100 mg PO Q8HP PRN #40 cap PRN Reason: Referrals: DAMIÁN BARTON DO [Primary Care Provider] - Follow up in 3-5 days
[2016-07-27 20:36] VITALS: BP 121/64
--- NOTE | 2016-07-28 08:42 | EKG REPORT ---
SEVERITY:- OTHERWISE NORMAL ECG - SINUS RHYTHM LEFT AXIS DEVIATION : Confirmed by: Edith Lemus MD 28-Jul-2016 08:41:43
== END 2016-07-27 20:42 | disposition home or self-care (01) ==
LOC: ER 17:51
DX: R04.2 Hemoptysis (principal); J44.9 Chronic obstructive pulmonary disease, unspecified; Z99.81 Dependence on supplemental oxygen; R07.89 Other chest pain; R06.02 Shortness of breath; I10 Essential (primary) hypertension; E66.01 Morbid (severe) obesity due to excess calories; Z68.42 Body mass index [BMI] 45.0-49.9, adult; Z88.8 Allergy status to other drugs, medicaments and biological substances; Z87.891 Personal history of nicotine dependence; Z87.01 Personal history of pneumonia (recurrent); Z88.0 Allergy status to penicillin; I73.9 Peripheral vascular disease, unspecified
CPT/HCPCS: 36415; 71010; 80048; 84484; 85025; 93005; 93010; 99285

== ENCOUNTER → 2016-09-22 | Outpatient (CLI) | payer MEDICARE, MEDICAID ==
--- NOTE | 2016-09-22 11:21 | RADIOLOGY REPORT (SQ) ---
EXAM DESCRIPTION: VENOUS REFLUX COMPLETED DATE/TIME: 09/22/2016 10:46 am REASON FOR STUDY: ULCER L97.211 NON-PRS CHRONIC ULCER OF RIGHT CALF LIMITED TO BRKDW COMPARISON: None. TECHNIQUE: Multiple real-time grayscale sonographic images were obtained for evaluation of the right and left lower extremity. Doppler and duplex evaluation of the venous structures was performed. LIMITATIONS: None. FINDINGS: The right and left common femoral, superficial femoral, popliteal and infrapopliteal veins are patent, with reflux in the left apophyseal vein lasting 4.1 seconds. Remainder of the deep veno us systems is otherwise unremarkable bilaterally. Right greater saphenous vein: In the distal right thigh, the right saphenous vein measures 5 mm in di ameter. There is venous reflux lasting 2.85 seconds. Right small saphenous vein: No insufficiency Left greater saphenous vein: No insufficiency Left small saphenous vein: No insufficiency OTHER: No solid or cystic masses or other abnormal findings. No significant perforating veins are identifie d IMPRESSION: Minimal reflux in the distal right thigh greater saphenous vein. Moderate reflux in the left popliteal vein. No clinically significant left leg venous reflux TECHNICAL DOCUMENTATION: JOB ID: [id number]- All Rights Reserved
--- NOTE | 2016-09-22 14:20 | RADIOLOGY REPORT (SQ) ---
EXAM DESCRIPTION: ARTERIAL LOWER EXTREM BILAT COMPLETED DATE/TIME: 09/22/2016 10:46 am REASON FOR STUDY: ULCER L97.211 NON-PRS CHRONIC ULCER OF RIGHT CALF LIMITED TO BRKDW COMPARISON: 04/10/2012 lower extremity arterial Doppler TECHNIQUE: Dynamic and static peter scale and color images acquired of the lower extremity arteries. Additional selected spectral images recorded. ABIs recorded. LIMITATIONS: None. FINDINGS: RIGHT LEG: ABIS: Normal, over 1.0. INFLOW ARTERIES: Normal, no obstruction evident. FEMORAL ARTERIES:Multiphasic waveforms. Normal, no velocity elevation to suggest focal stenosis. Norm al color Doppler evaluation. No aneurysm. POPLITEAL ARTERY:Multiphasic waveforms. Normal, no velocity elevation to suggest focal stenosis. Norm al color Doppler evaluation. No aneurysm. PATENT TIBIOPERONEAL TRUNK AND 3 VESSEL RUNOFF: Yes, normal anterior tibial and posterior tibial jason rocio. Peroneal artery not evaluated. TBI: Not performed. OTHER: No other significant finding. LEFT LEG: ABIS: Normal, over 1.0. INFLOW ARTERIES: Normal, no obstruction evident. FEMORAL ARTERIES:Multiphasic waveforms. Normal, no velocity elevation to suggest focal stenosis. Norm al color Doppler evaluation. No aneurysm. POPLITEAL ARTERY:Multiphasic waveforms. Normal, no velocity elevation to suggest focal stenosis. Norm al color Doppler evaluation. No aneurysm. PATENT TIBIOPERONEAL TRUNK AND 3 VESSEL RUNOFF: Patent tibioperoneal trunk and anterior tibial artery . Posterior tibial artery occluded distally. Peroneal artery not evaluated. TBI: Not performed. OTHER: No other significant finding. 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 Otherwise unremarkable study. Normal ankle-brachial indices bilaterally. COMMENT: [facility] NORMAL: Greater than 1.0 MINIMAL DISEASE: 0.9 to 1.0 CLAUDICATION: 0.5 to 0.9 SEVERE ARTERIAL DISEASE: Less than 0.5 [facility] NORMAL: Greater than 1.0 (1.2 If Heavy Calcifications) NORMAL TO MILD ISCHEMIA: 0.8 to 1.0 MODERATE ISCHEMIA: 0.4 to 0.8 SEVERE ISCHEMIA: Less than 0.4 TECHNICAL DOCUMENTATION: JOB ID: [id number]- All Rights Reserved
== END ==
LOC: SP 08:11
PROVIDERS: ATTEND Nurse Practitioner Family
DX: L97.211 Non-pressure chronic ulcer of right calf limited to breakdown of skin (principal)
CPT/HCPCS: 93925; 93970

== ENCOUNTER 2016-12-06 10:30 | Emergency (ER) | payer MEDICARE, MEDICAID ==
--- NOTE | 2016-12-06 10:47 | ER Document Report ---
ED General - General Stated Complaint: CHEST PAIN Time Seen by Provider: 12/06/16 10:36 Notes: 66-year-old male with COPD on home oxygen chronic venous disease and prior episodes of chest pain setting with chest pain. He went to bed fine woke up this morning with severe sharp central chest pain nonradiating with some shortness of breath, no nausea vomiting or sweating. He got nitro from EMS and it went away that was about half an hour ago. This chest pain is similar to prior which he has had intermittently. He had a stress test Lexiscan done in April which was essentially normal however could not rule out single-vessel disease per the report. TRAVEL OUTSIDE OF THE [place] IN LAST 30 DAYS: No - Related Data Allergies/Adverse Reactions: lisinopril [Lisinopril] Allergy (Severe, Verified 07/27/16 18:28) angioedema Penicillins Allergy (Unknown, Verified 07/27/16 18:28) Past Medical History - Social History Smoking Status: Former Smoker Family History: COPD, Hypertension - Past Medical History Cardiac Medical History: Reports: Hx Congestive Heart Failure, Hx Hypercholesterolemia, Hx Hypertension, Hx Peripheral Vascular Disease Denies: Hx Atrial Fibrillation, Hx Coronary Artery Disease, Hx Heart Attack, Hx Pulmonary Embolism, Hx Heart Murmur Pulmonary Medical History: Reports: Hx COPD, Hx Pneumonia, Hx Respiratory Failure - On home oxygen, Hx Sleep Apnea Denies: Hx Asthma, Hx Bronchitis, Hx Tuberculosis Neurological Medical History: Denies: Hx Cerebrovascular Accident, Hx Seizures Malignancy Medical History: Denies Hx Lung Cancer GI Medical History: Reports: Hx Gastroesophageal Reflux Disease, Hx Ulcer. Denies: Hx Crohn's Disease, Hx Hiatal Hernia, Hx Irritable Bowel, Hx Liver Failure, Hx Pancreatitis Musculoskeltal Medical History: Reports Hx Arthritis, Denies Hx Fibromyalgia, Denies Hx Multiple Sclerosis, Denies Hx Muscular Dystrophy Psychiatric Medical History: Reports: Hx Depression Denies: Hx Bipolar Disorder, Hx Dementia, Hx Post Traumatic Stress Disorder, Hx Schizophrenia Traumatic Medical History: Denies: Hx Fractures Past Surgical History: Denies: Hx Colostomy - Immunizations Hx Diphtheria, Pertussis, Tetanus Vaccination: No Hx Pneumococcal Vaccination: 04/28/11 Review of Systems - Review of Systems Notes: REVIEW OF SYSTEMS GEN: Denies fever, chills, weight loss ENT: Denies sore throat, nasal discharge, ear pain EYES: Denies blurry vision, eye pain, discharge CV: Chest pain chronic edema RESP: D chronic shortness of breath on oxygen GI: Denies abdominal pain, nausea, vomiting, diarrhea MSK: Denies joint pain/swelling, edema, SKIN: Denies rash, skin lesions LYMPH: Denies swollen glands/lymph nodes NEURO: Denies headache, focal weakness or numbness, dizziness PSYCH: Denies depression, suicidal or homicidal ideation PHYSICAL EXAMINATION General: Obese. No acute distress, well-nourished Head: Atraumatic, normocephalic ENT: Mouth normal, oropharynx moist, no exudates or tonsillar enlargement Eyes: Conjunctiva normal, pupils equal, lids normal Neck: No JVD, supple, no guarding CVS: Normal rate, regular rhythm, no murmurs Resp: No resp distress, equal and normal breath sounds bilaterally GI: Nondistended, soft, no tenderness to palpation, no rebound or guarding Ext: No deformities, no edema, normal range of motion in upper and lower ext chronic appearing venous disease in both legs with edema. Back: No CVA or midline TTP Skin: No rash, warm Lymphatic: No lymphadeopathy noted Neuro: Awake, alert. Face symmetric. GCS 15. Physical Exam - Vital signs Vitals: Pulse Ox 96 12/06/16 10:35 Course - Re-evaluation Re-evalutation: 12/06/16 14:48 Patient seen and evaluated in the ED for atypical chest pain. Very low concern for pulmonary embolus aortic dissection or other thoracic pathology. ACS is the main clinical concern. His EKG is normal. I did do serial troponins both of which were normal. In the setting of a recently negative stress test I think he is stable for discharge home. He will follow-up with his primary care. 12/06/16 14:48 - Vital Signs Vital signs: Temp Pulse Resp BP Pulse Ox 21 H 114/70 96 12/06/16 11:02 12/06/16 11:02 12/06/16 11:02 - Laboratory Result Diagrams: 12/06/16 11:01 12/06/16 11:01 Laboratory results interpreted by me: 12/06/16 12/06/16 11:01 11:01 RBC 4.31 L Hgb 13.2 L Monocytes % 13.1 H Glucose 128 H - Diagnostic Test Radiology reviewed: Image reviewed, Reports reviewed - EKG Interpretation by Me EKG shows normal: Sinus rhythm Rhythm: NSR - No ischemic change or change from prior When compared to previous EKG there are: No significant change Discharge - Discharge Clinical Impression: Atypical chest pain Condition: Good Disposition: HOME, SELF-CARE Instructions: Chest Pain of Unclear Cause ([facility]) Additional Instructions: Your evaluation in the ER today did not show a serious cause of her chest pain. That said, you are at high risk for coronary artery disease and heart attack and need to follow-up with her regular doctor within 3-5 days to see if she would like to schedule a stress test for you. Referrals: DAMIÁN BARTON, DO [Primary Care Provider] - Follow up in 3-5 days
[2016-12-06 11:12] LABS: ABSOLUTE EOSINOPHILS # (AUTO) 0.1 10^3/uL (0.0-0.6); ABSOLUTE LYMPHOCYTES (AUTO) 1.7 10^3/uL (0.5-4.7); ABSOLUTE MONOCYTES (AUTO) 0.7 10^3/uL (0.1-1.4); ABSOLUTE NEUT (AUTO) 2.6 10^3/uL (1.7-8.2); BASOPHILS % (AUTO) 0.9 % (0-2); EOSINOPHILS % (AUTO) 2.7 % (0-6); HEMATOCRIT 38.9 % (37.9-51.0); HEMOGLOBIN 13.2 g/dL (13.5-17.0); HGB HCT DIFFERENCE 0.7; LYMPHOCYTES % (AUTO) 33.4 % (13-45); MEAN CORPUSCULAR HEMOGLOBIN 30.6 pg (27.0-33.4); MEAN CORPUSCULAR HGB CONC 33.9 g/dL (32.0-36.0); MEAN CORPUSCULAR VOLUME 90 fl (80-97); MONOCYTES % (AUTO) 13.1 % (3-13); RED BLOOD COUNT 4.31 10^6/uL (4.35-5.55); RED CELL DISTRIBUTION WIDTH 13.7 % (11.5-14.0); SEGMENTED NEUTROPHILS % (AUTO) 49.9 % (42-78); WHITE BLOOD COUNT 5.2 10^3/uL (4.0-10.5)
[2016-12-06 11:31] LABS: APPEARANCE,URINE CLEAR; BILIRUBIN,URINE NEGATIVE (NEGATIVE); GLUCOSE, URINE NEGATIVE (NEGATIVE); KETONES,URINE NEGATIVE (NEGATIVE); LEUKOCYTE ESTERASE,URINE NEGATIVE (NEGATIVE); NITRITE,URINE NEGATIVE (NEGATIVE); PROTEIN,URINE NEGATIVE (NEGATIVE); URINE SPECIFIC GRAVITY 1.016; UROBILINOGEN,URINE NEGATIVE mg/dL (<2.0)
[2016-12-06 11:36] LABS: ANION GAP 8 (5-19); BLOOD UREA NITROGEN 19 mg/dL (7-20); CALCIUM 8.9 mg/dL (8.4-10.2); CARBON DIOXIDE 30 mmol/L (22-30); CHLORIDE 105 mmol/L (98-107); CREATININE RESULT 0.87 mg/dL (0.52-1.25); GLUCOSE 128 mg/dL (75-110); POTASSIUM 4.4 mmol/L (3.6-5.0); SODIUM 143.4 mmol/L (137-145)
--- NOTE | 2016-12-06 11:47 | RADIOLOGY REPORT (SQ) ---
EXAM DESCRIPTION: CHEST PA/LAT COMPLETED DATE/TIME: 12/06/2016 11:40 am REASON FOR STUDY: CP COMPARISON: 04/27/2016 EXAM PARAMETERS: NUMBER OF VIEWS: two views TECHNIQUE: Digital Frontal and Lateral radiographic views of the chest acquired. RADIATION DOSE: NA LIMITATIONS: none FINDINGS: LUNGS AND PLEURA: No opacities, masses or pneumothorax. No pleural effusion. MEDIASTINUM AND HILAR STRUCTURES: No masses or contour abnormalities. HEART AND VASCULAR STRUCTURES: Heart normal size. No evidence for failure. BONES: No acute findings. HARDWARE: None in the chest. OTHER: No other significant finding. IMPRESSION: NO SIGNIFICANT RADIOGRAPHIC FINDING IN THE CHEST. TECHNICAL DOCUMENTATION: JOB ID: [id number] [employer]- All Rights Reserved
[2016-12-06 16:40] VITALS: BP 130/74
--- NOTE | 2016-12-06 23:46 | EKG REPORT ---
SEVERITY:- OTHERWISE NORMAL ECG - SINUS RHYTHM BORDERLINE LEFT AXIS DEVIATION : Confirmed by: Jacquelin Garvin 06-Dec-2016 23:45:29
== END 2016-12-06 16:40 | disposition home or self-care (01) ==
LOC: ER 10:30
DX: R07.89 Other chest pain (principal); J44.9 Chronic obstructive pulmonary disease, unspecified; Z99.81 Dependence on supplemental oxygen; I73.9 Peripheral vascular disease, unspecified; R60.9 Edema, unspecified; I10 Essential (primary) hypertension; R06.02 Shortness of breath; Z88.8 Allergy status to other drugs, medicaments and biological substances; Z88.0 Allergy status to penicillin; Z87.891 Personal history of nicotine dependence; Z87.01 Personal history of pneumonia (recurrent)
CPT/HCPCS: 36415; 71020; 80048; 81001; 84484; 85025; 93005; 93010; 99285

== ENCOUNTER → 2017-01-03 | Outpatient (CLI) | payer MEDICARE, MEDICAID | LOC: SP 12:37 | PROVIDERS: ATTEND Surgery Vascular Surgery | DX: Z53.9 Procedure and treatment not carried out, unspecified reason (principal) ==

== ENCOUNTER 2017-06-07 08:57 | Day surgery (SDC) | payer MEDICARE, MEDICAID ==
[~2017-06-07 08:57] MED LIST: BUPIVACAINE HCL 0.75% INJ/PF (7.5 MG/1 ML) 10 ML SDV OS PRN; CHONDR SU A NA/HYALUR INTRAOC KIT (SURGICARE) ONE; EPINEPHRINE INJ/PF 1 MG/1 ML AMPULE ONE; KETOROLAC TROMETHAMINE 0.45% 4 DROP/0.4 ML DROPERETTE OS PRN; LIDOCAINE 1% INJ-PF (10 MG/ML) 30 ML SDV ONE; LIDOCAINE 4% INJ/PF (40 MG/ML) 5 ML AMPUL OS PRN
[2017-06-07] MEDS: TROPICAMIDE 1% OPH SOLN 3 ML OS PRN ×3 (09:13→09:45)
[2017-06-07] MEDS: CYCLOPENTOLATE 0.2%/PHENYLEPHRINE 1% OPH SOLN 2 ML OS PRN ×3 (09:13→09:45)
[2017-06-07] MEDS: BESIFLOXACIN HCL 0.6% OPH SUSP 5 ML BOTTLE OS PRN ×3 (09:14→10:21)
[2017-06-07] MEDS: TETRACAINE HCL 0.5% OPH SOLN 0.6 ML DROPERETTE OS PRN ×2 (09:15→09:46)
[2017-06-07] MEDS ORDERED: MIDAZOLAM 2 MG/2 ML INJ ONE (09:41)
[2017-06-07] MEDS ORDERED: FENTANYL CITRATE INJ/PF 100 MCG/2 ML AMPUL ONE (09:41)
[2017-06-07] MEDS ORDERED: ONDANSETRON HCL INJ/PF 4 MG/2 ML SDV ONE (09:42)
[2017-06-07] MEDS ORDERED: CHONDR SU A NA/HYALUR INTRAOC KIT (SURGICARE) ONE (09:53)
--- NOTE | 2017-06-07 10:49 | [facility] OPERATIVE REPORT E ---
[facility] Operative Report NAME: SUJATA GONSALEZ AGE: 66Y DATE OF SURGERY: 06/07/2017 ROOM: PREOPERATIVE DIAGNOSIS: Cataract, left eye. POSTOPERATIVE DIAGNOSIS: Cataract, left eye. PROCEDURE PERFORMED: Phacoemulsification with posterior chamber intraocular lens, left eye. SURGEON: AYAZ SMALL M.D. ANESTHESIA: Topical with MAC. INDICATIONS FOR SURGERY: Difficulty reading road signs and small print. Best corrected visual acuity 20/80. PROCEDURE: The patient was brought to the Operating Room and placed on the operative table. Following tetracaine drops, topical anesthesia was administered. This consisted of instrument wipe pledgets soaked in a solution of 4% Xylocaine mixed with 0.75% Marcaine in a 1:2 ratio. A 2 x 1 cm pledget was placed in the superior fornix. A 1 x 1 cm pledget was placed in the inferior fornix. The eye was patched shut for 5 minutes. The patch was removed. The eye was sterilely prepped and draped in the usual manner. Lid speculum was placed in the eye. The pledgets were removed. 4-0 black silk sutures were placed around the superior and the inferior rectus muscles to be used as traction. A conjunctival peritomy was made at the 10 o'clock position. Hemostasis was obtained with bipolar cautery. A posterior limbal groove was created using a crescent knife and dissected anteriorly towards the cornea. A sharp point blade was used to create a paracentesis site at the 2 o'clock position. A 2.4 mm keratome was used to enter the anterior chamber through the groove. Viscoelastic was injected into the anterior chamber. An anterior capsulotomy was performed using Utrata forceps in a capsulorrhexis fashion. Hydrodissection and hydrodelineation were performed. Phacoemulsification was performed in dqvryo-dhm-rzlbgyl technique. A total of 1 minute 8 seconds phaco time was used. Following this, the I/A unit was used to remove residual cortex. Viscoelastic was injected into the capsular bag. Intraocular lens model [id number], 22.5 diopters, serial number [id number] was placed in the capsular bag. The I/A unit was used to remove residual viscoelastic. The wound was seen to be watertight under high and low pressure, and no sutures were placed. The intraocular lens was well centered. The pressure was adjusted in the eye to normal pressure. The 4-0 black silk sutures and lid speculum were removed. The eye was shielded after Besivance drops were placed. The patient tolerated the procedure well and was sent to the Recovery Room in good condition. DICTATING PHYSICIAN: AYAZ SMALL M.D. [id number] PHY#: [id number] ID: [id number] JOB#: [id number] ACCT: [id number] cc:AYAZ SMALL M.D. >
--- NOTE | 2017-06-07 10:54 | [facility] DISCHARGE SUMMARY E ---
[facility] Discharge Summary NAME: SUJATA GONSALEZ AGE: 66Y ADMITTED: 06/07/2017 DISCHARGED: 06/07/2017 HOSPITAL COURSE: The patient is a 66-year-old gentleman who underwent uneventful cataract extraction with intraocular lens implant, left eye on 06/07/2017. He will be discharged to home. He is instructed to resume preoperative medications, to take Tylenol as needed for discomfort, to keep his eye shielded, to use Besivance, Durezol, and Ilevro at 3 p.m. and 8 p.m. and to follow up in my office in 1 day. DICTATING PHYSICIAN: AYAZ SMALL M.D. [id number] PHY#: [id number] ID: [id number] JOB#: [id number] ACCT: [id number] cc:AYAZ SMALL M.D. >
== END 2017-06-07 11:07 | disposition home or self-care (01) ==
LOC: SC 08:57
PROVIDERS: ATTEND Ophthalmology
DX: H25.813 Combined forms of age-related cataract, bilateral (principal); H04.123 Dry eye syndrome of bilateral lacrimal glands; H43.811 Vitreous degeneration, right eye; I20.9 Angina pectoris, unspecified; I10 Essential (primary) hypertension; E78.00 Pure hypercholesterolemia, unspecified; J44.9 Chronic obstructive pulmonary disease, unspecified; M19.90 Unspecified osteoarthritis, unspecified site; I49.9 Cardiac arrhythmia, unspecified; K21.9 Gastro-esophageal reflux disease without esophagitis; Z87.891 Personal history of nicotine dependence; Z79.899 Other long term (current) drug therapy; Z99.81 Dependence on supplemental oxygen
CPT/HCPCS: 66984; V2632; J2250; J3490 ×4; A9270; J0171; J3010; J2405; 142

== ENCOUNTER 2017-06-28 09:27 | Day surgery (SDC) | payer MEDICARE, MEDICAID ==
[~2017-06-28 09:27] MED LIST changes: +BUPIVACAINE HCL 0.75% INJ/PF (7.5 MG/1 ML) 10 ML SDV OD PRN; -BUPIVACAINE HCL 0.75% INJ/PF (7.5 MG/1 ML) 10 ML SDV OS PRN; -CHONDR SU A NA/HYALUR INTRAOC KIT (SURGICARE) ONE; -EPINEPHRINE INJ/PF 1 MG/1 ML AMPULE ONE; +KETOROLAC TROMETHAMINE 0.45% 4 DROP/0.4 ML DROPERETTE OD PRN; -KETOROLAC TROMETHAMINE 0.45% 4 DROP/0.4 ML DROPERETTE OS PRN; -LIDOCAINE 1% INJ-PF (10 MG/ML) 30 ML SDV ONE; +LIDOCAINE 4% INJ/PF (40 MG/ML) 5 ML AMPUL OD PRN; -LIDOCAINE 4% INJ/PF (40 MG/ML) 5 ML AMPUL OS PRN; +MIDAZOLAM 2 MG/2 ML INJ ONE
[2017-06-28] MEDS: TETRACAINE HCL 0.5% OPH SOLN 0.6 ML DROPERETTE OD PRN ×2 (10:00→10:43)
[2017-06-28] MEDS: TROPICAMIDE 1% OPH SOLN 3 ML OD PRN ×3 (10:05→10:25)
[2017-06-28] MEDS: CYCLOPENTOLATE 0.2%/PHENYLEPHRINE 1% OPH SOLN 2 ML OD PRN ×3 (10:05→10:25)
[2017-06-28] MEDS: BESIFLOXACIN HCL 0.6% OPH SUSP 5 ML BOTTLE OD PRN ×3 (10:06→11:12)
[2017-06-28] MEDS ORDERED: CHONDR SU A NA/HYALUR INTRAOC KIT (SURGICARE) ONE (10:35)
[2017-06-28] MEDS ORDERED: EPINEPHRINE INJ/PF 1 MG/1 ML AMPULE ONE (10:35)
[2017-06-28] MEDS ORDERED: LIDOCAINE 1% INJ-PF (10 MG/ML) 30 ML SDV ONE (10:35)
--- NOTE | 2017-06-28 12:05 | [facility] DISCHARGE SUMMARY E ---
[facility] Discharge Summary NAME: SUJATA GONSALEZ AGE: 66Y ADMITTED: 06/28/2017 DISCHARGED: 06/28/2017 HOSPITAL COURSE: The patient is a 66-year-old gentleman who underwent uneventful cataract extraction with intraocular lens implant, right eye, on 06/28/2017. He will be discharged to home. He was instructed to resume preoperative medications, to take Tylenol as needed for discomfort, to keep his eye shielded, to use Besivance, Durezol, and Ilevro at 3:00 p.m. and 8:00 p.m., and to follow up in my office in 1 day. DICTATING PHYSICIAN: AYAZ SMALL M.D. [id number] PHY#: [id number] ID: [id number] JOB#: [id number] ACCT: [id number] cc:AYAZ SMALL M.D. >
--- NOTE | 2017-06-28 12:05 | [facility] OPERATIVE REPORT E ---
[facility] Operative Report NAME: SUJATA GONSALEZ AGE: 66Y DATE OF SURGERY: 06/28/2017 ROOM: PREOPERATIVE DIAGNOSIS: Cataract, right eye. POSTOPERATIVE DIAGNOSIS: Cataract, right eye. PROCEDURE PERFORMED: Phacoemulsification with posterior chamber intraocular lens, right eye. SURGEON: AYAZ SMALL M.D. ANESTHESIA: Topical with MAC. INDICATIONS FOR SURGERY: Difficulty reading road signs. BEST CORRECTED VISUAL ACUITY: 20/50. DESCRIPTION OF PROCEDURE: The patient was brought to the operating room and placed on the operative table. Following tetracaine drops, topical anesthesia was administered. This consisted of instrument wipe pledgets soaked in a solution of 4% Xylocaine mixed with 0.75% Marcaine in a 1:2 ratio. A 2 x 1 cm pledget was placed in the superior fornix. A 1 x 1 cm pledget was placed in the inferior fornix. The eye was patched shut for 5 minutes. The patch was removed. The eye was sterilely prepped and draped in the usual manner. Lid speculum was placed in the eye. The pledgets were removed, 4-0 black silk sutures were placed around the superior and the inferior rectus muscles to be used as traction. A conjunctival peritomy was made at the 10 o'clock position. Hemostasis was obtained with bipolar cautery. A posterior limbal groove was created using a crescent knife and dissected anteriorly towards the cornea. A sharp point blade was used to create a paracentesis site at the 2 o'clock position. A 2.4 mm keratome was used to enter the anterior chamber through the groove. Viscoelastic was injected into the anterior chamber. An anterior capsulotomy was performed using Utrata forceps in a capsulorrhexis fashion. Hydrodissection and hydrodelineation were performed. Phacoemulsification was performed in dxoxkq-tri-xwianxd technique. Total phaco time, 1 minute 11 seconds. Following this, the I/A unit was used to remove residual cortex. Viscoelastic was injected into the capsular bag. Intraocular lens Model SN60WF, 22.5 diopters, serial number [id number] was placed in the capsular bag. The I/A unit was used to remove residual viscoelastic. The wound was seen to be watertight under high and low pressure, and no sutures were placed. The intraocular lens was well centered. The pressure was adjusted in the eye to normal pressure. The 4-0 black silk sutures and lid speculum were removed. The eye was shielded after Besivance drops were placed. The patient tolerated the procedure well and was sent to the recovery room in good condition. DICTATING PHYSICIAN: AYAZ SMALL M.D. [id number] PHY#: [id number] ID: [id number] JOB#: [id number] ACCT: [id number] cc:AYAZ SMALL M.D. >
== END 2017-06-28 11:51 | disposition home or self-care (01) ==
LOC: SC 09:27
PROVIDERS: ATTEND Ophthalmology
DX: H25.811 Combined forms of age-related cataract, right eye (principal); Z96.1 Presence of intraocular lens; J44.9 Chronic obstructive pulmonary disease, unspecified; I10 Essential (primary) hypertension; E66.9 Obesity, unspecified; K21.9 Gastro-esophageal reflux disease without esophagitis; M19.90 Unspecified osteoarthritis, unspecified site; Z68.42 Body mass index [BMI] 45.0-49.9, adult; Z79.899 Other long term (current) drug therapy; Z79.51 Long term (current) use of inhaled steroids; Z88.0 Allergy status to penicillin; Z79.82 Long term (current) use of aspirin
CPT/HCPCS: 66984; V2632; J2250; J3490 ×4; A9270; J0171; 142

== ENCOUNTER → 2017-08-13 | Outpatient (CLI) | payer MEDICARE, MEDICAID ==
--- NOTE | 2017-08-13 09:33 | RADIOLOGY REPORT (SQ) ---
EXAM DESCRIPTION: CHEST PA/LATERAL COMPLETED DATE/TIME: 08/13/2017 9:05 am REASON FOR STUDY: CHRONIC OBSTRUCTIVE PULMONARY DISEASE, UNSPECIFIED COMPARISON: Two-view chest 12/06/2016 CT angio chest 04/27/2016 EXAM PARAMETERS: NUMBER OF VIEWS: two views TECHNIQUE: Digital Frontal and Lateral radiographic views of the chest acquired. RADIATION DOSE: NA LIMITATIONS: Motion artifact on lateral view FINDINGS: LUNGS AND PLEURA: No opacities, masses or pneumothorax. No pleural effusion. MEDIASTINUM AND HILAR STRUCTURES: No masses or contour abnormalities. HEART AND VASCULAR STRUCTURES: Heart normal size. No evidence for failure. BONES: No acute findings. HARDWARE: None in the chest. OTHER: No other significant finding. IMPRESSION: NO SIGNIFICANT RADIOGRAPHIC FINDING IN THE CHEST. TECHNICAL DOCUMENTATION: JOB ID: [id number] [employer]- All Rights Reserved Reading location - IP/workstation name: [email or web address]
== END ==
LOC: OD 08:55
PROVIDERS: ATTEND Physician Assistant
DX: J44.9 Chronic obstructive pulmonary disease, unspecified (principal)
CPT/HCPCS: 71046

== ENCOUNTER 2018-04-19 10:52 | Emergency (ER) | payer MEDICARE, MEDICAID ==
[2018-04-19 11:11] VITALS: BP 157/93
--- NOTE | 2018-04-19 11:22 | ER Document Report ---
HPI - HPI Patient complains to provider of: eye redness Time Seen by Provider: 04/19/18 11:13 Onset: Other - two days Quality of pain: No pain Pain Level: Denies Context: She presents emergency department with complaints of redness to his right eye. He reports it just appeared he woke up with it. Denies trauma. Denies vision concerns. No other complaints such as coughing fever vomiting diarrhea. Patient also reports he had cataract surgery done in June and he has a follow-up visit with Dr. Kesha Small's clinic on Tuesday. Associated Symptoms: None Exacerbated by: Denies Relieved by: Denies Similar symptoms previously: No Recently seen / treated by doctor: No - REPRODUCTIVE Reproductive: DENIES: : Past Medical History - General Information source: Patient - Social History Smoking Status: Unknown if Ever Smoked Cigarette use (# per day): No Frequency of alcohol use: None Drug Abuse: None Family History: COPD, Hypertension - Past Medical History Cardiac Medical History: Reports: Hx Congestive Heart Failure, Hx Hypercholesterolemia, Hx Hypertension - MEDICATED, Hx Peripheral Vascular Disease Denies: Hx Atrial Fibrillation, Hx Coronary Artery Disease, Hx Heart Attack, Hx Pulmonary Embolism, Hx Heart Murmur Pulmonary Medical History: Reports: Hx COPD, Hx Pneumonia, Hx Respiratory Failure - On home oxygen, Hx Sleep Apnea Denies: Hx Asthma, Hx Bronchitis, Hx Tuberculosis Neurological Medical History: Denies: Hx Cerebrovascular Accident, Hx Seizures Renal/ Medical History: Denies: Hx Peritoneal Dialysis Malignancy Medical History: Denies Hx Lung Cancer GI Medical History: Reports: Hx Gastroesophageal Reflux Disease, Hx Ulcer - YRS AGO. Denies: Hx Crohn's Disease, Hx Hepatitis, Hx Hiatal Hernia, Hx Irritable Bowel, Hx Liver Failure, Hx Pancreatitis Musculoskeletal Medical History: Reports Hx Arthritis, Denies Hx Fibromyalgia, Denies Hx Multiple Sclerosis, Denies Hx Muscular Dystrophy Psychiatric Medical History: Reports: Hx Depression Denies: Hx Bipolar Disorder, Hx Dementia, Hx Post Traumatic Stress Disorder, Hx Schizophrenia Traumatic Medical History: Denies: Hx Fractures Infectious Medical History: Denies: Hx Hepatitis Past Surgical History: Denies: Hx Colostomy, Hx Open Heart Surgery, Hx Pacemaker - Immunizations Hx Diphtheria, Pertussis, Tetanus Vaccination: No Hx Pneumococcal Vaccination: 04/28/11 Vertical Provider Document - CONSTITUTIONAL Agree With Documented VS: Yes Exam Limitations: No Limitations General Appearance: WD/WN, No Apparent Distress - INFECTION CONTROL TRAVEL OUTSIDE OF THE [place] IN LAST 30 DAYS: No - HEENT HEENT: Atraumatic, Normocephalic. negative: Conjuctival Injection - NECK Neck: Supple - RESPIRATORY Respiratory: No Respiratory Distress - CARDIOVASCULAR Cardiovascular: Regular Rate - MUSCULOSKELETAL/EXTREMETIES Musculoskeletal/Extremeties: MAEW, FROM - NEURO Level of Consciousness: Awake, Alert, Appropriate Motor/Sensory: No Motor Deficit - DERM Integumentary: Warm, Dry Course - Re-evaluation Re-evalutation: 04/19/18 Patient was educated on subconjunctival hemorrhage. Has an appointment with his eye doctor on Tuesday. He was instructed to make sure he follows up with blemish remover and return here for any concerns. He verbalized understanding to all instructions. Dictation of this chart was performed using voice recognition software; therefore, there may be some unintended grammatical errors. - Vital Signs Vital signs: Temp Pulse Resp BP Pulse Ox 98.3 F 87 21 H 157/93 H 94 04/19/18 11:10 04/19/18 11:10 04/19/18 11:10 04/19/18 11:10 04/19/18 11:10 Procedures - Eye Procedure Right Eyes picture: 1 - Subconjunctival hemorrhage noted Discharge - Discharge Clinical Impression: Redness of eye, right Subconjunctival hemorrhage Qualifiers: Laterality: right Qualified Code(s): H11.31 - Conjunctival hemorrhage, right eye Condition: Stable Disposition: HOME, SELF-CARE Instructions: Subconjunctival Hemorrhage ([facility]) Additional Instructions: *You have been evaluated for eye redness, subconjuctival hemorrhage *Do not rub your eye *Follow up with your blemish remover on Tuesday as scheduled *Return to ED for worsening condition, changes, needs, vision changes, pain in your eyes, concerns Monitor your blood pressure. Your blood pressure was elevated today. This may be because you were anxious, in pain or because you need medication. It is important to follow up with your primary care provider for full evaluation. Forms: Elevated Blood Pressure Referrals: KESHA SMALL MD [ACTIVE STAFF] - 04/21/18
== END 2018-04-19 11:29 | disposition home or self-care (01) ==
LOC: ER 10:52
DX: H11.31 Conjunctival hemorrhage, right eye (principal); Z98.890 Other specified postprocedural states; I10 Essential (primary) hypertension; J44.9 Chronic obstructive pulmonary disease, unspecified
CPT/HCPCS: 99283

== ENCOUNTER 2018-07-26 06:07 | Emergency (ER) | payer MEDICARE, MEDICAID ==
--- NOTE | 2018-07-26 06:53 | ER Document Report ---
ED Medical Screen (RME) - General Chief Complaint: Skin Problem Stated Complaint: ABDOMINAL PAIN Time Seen by Provider: 07/26/18 06:45 Primary Care Provider: DAMIÁN BARTON DO [Primary Care Provider] - Follow up as needed Notes: Patient is a 67-year-old male who presents the emergency department with a chief complaint of a burning sensation to his bilateral groin area. He states that he has had a long time history of jock itch problems in the past. He states it is very pruritic. He has not been using any medication to help with this issue. Exam: Erythema noted to bilateral groin and scrotal area. I have greeted and performed a rapid initial assessment of this patient. A comprehensive ED assessment and evaluation of the patient, analysis of test results and completion of medical decision making process will be conducted by an additional ED providers. TRAVEL OUTSIDE OF THE [place] IN LAST 30 DAYS: No - Related Data Allergies/Adverse Reactions: Penicillins Allergy (Unknown, Verified 04/19/18 10:57) Past Medical History - Past Medical History Cardiac Medical History: Reports: Hx Congestive Heart Failure, Hx Hypercholesterolemia, Hx Hypertension - MEDICATED, Hx Peripheral Vascular Disease Denies: Hx Atrial Fibrillation, Hx Coronary Artery Disease, Hx Heart Attack, Hx Pulmonary Embolism, Hx Heart Murmur Pulmonary Medical History: Reports: Hx COPD, Hx Pneumonia, Hx Respiratory Failure - On home oxygen, Hx Sleep Apnea Denies: Hx Asthma, Hx Bronchitis, Hx Tuberculosis Neurological Medical History: Denies: Hx Cerebrovascular Accident, Hx Seizures Renal/ Medical History: Denies: Hx Peritoneal Dialysis Malignancy Medical History: Denies Hx Lung Cancer GI Medical History: Reports: Hx Gastroesophageal Reflux Disease, Hx Ulcer - YRS AGO. Denies: Hx Crohn's Disease, Hx Hepatitis, Hx Hiatal Hernia, Hx Irritable Bowel, Hx Liver Failure, Hx Pancreatitis Musculoskeltal Medical History: Reports Hx Arthritis, Denies Hx Fibromyalgia, Denies Hx Multiple Sclerosis, Denies Hx Muscular Dystrophy Psychiatric Medical History: Reports: Hx Depression Denies: Hx Bipolar Disorder, Hx Dementia, Hx Post Traumatic Stress Disorder, Hx Schizophrenia Traumatic Medical History: Denies: Hx Fractures Infectious Medical History: Denies: Hx Hepatitis Past Surgical History: Denies: Hx Colostomy, Hx Open Heart Surgery, Hx Pacemaker - Immunizations Hx Diphtheria, Pertussis, Tetanus Vaccination: No Physical Exam - Vital signs Vitals: Temp Pulse Resp BP Pulse Ox 97.8 F 82 20 134/73 H 95 07/26/18 06:11 07/26/18 06:11 07/26/18 06:11 07/26/18 06:11 07/26/18 06:11 Course - Vital Signs Vital signs: Temp Pulse Resp BP Pulse Ox 97.8 F 82 20 134/73 H 95 07/26/18 06:11 07/26/18 06:11 07/26/18 06:11 07/26/18 06:11 07/26/18 06:11 Doctor's Discharge - Discharge Referrals: DAMIÁN BARTON, [Primary Care Provider] - Follow up as needed
--- NOTE | 2018-07-26 07:03 | ER Document Report ---
ED General - General Chief Complaint: Skin Problem Stated Complaint: ABDOMINAL PAIN Time Seen by Provider: 07/26/18 06:45 Primary Care Provider: DAMIÁN BARTON DO [Primary Care Provider] - Follow up in 1 week Notes: Patient is a 67-year-old male who presents the emergency department with a chief complaint of a burning sensation to his bilateral groin area. He states that he has had a long time history of jock itch problems in the past. He states it is very pruritic. He has not been using any medication to help with this issue. He has a past medical history of hypertension hyperlipidemia. He takes me dications for them. He denies any other symptoms. Denies any abdominal pain. He states that is mainly itchy and his nprg-cdg-wjbqagx medication is not working. TRAVEL OUTSIDE OF THE [place] IN LAST 30 DAYS: No - Related Data Allergies/Adverse Reactions: Penicillins Allergy (Unknown, Verified 04/19/18 10:57) Past Medical History - Social History Smoking Status: Former Smoker Family History: COPD, Hypertension - Past Medical History Cardiac Medical History: Reports: Hx Congestive Heart Failure, Hx Hypercholesterolemia, Hx Hypertension - MEDICATED, Hx Peripheral Vascular Disease Denies: Hx Atrial Fibrillation, Hx Coronary Artery Disease, Hx Heart Attack, Hx Pulmonary Embolism, Hx Heart Murmur Pulmonary Medical History: Reports: Hx COPD, Hx Pneumonia, Hx Respiratory Failure - On home oxygen, Hx Sleep Apnea Denies: Hx Asthma, Hx Bronchitis, Hx Tuberculosis Neurological Medical History: Denies: Hx Cerebrovascular Accident, Hx Seizures Renal/ Medical History: Denies: Hx Peritoneal Dialysis Malignancy Medical History: Denies Hx Lung Cancer GI Medical History: Reports: Hx Gastroesophageal Reflux Disease, Hx Ulcer - YRS AGO. Denies: Hx Crohn's Disease, Hx Hepatitis, Hx Hiatal Hernia, Hx Irritable Bowel, Hx Liver Failure, Hx Pancreatitis Musculoskeletal Medical History: Reports Hx Arthritis, Denies Hx Fibromyalgia, Denies Hx Multiple Sclerosis, Denies Hx Muscular Dystrophy Psychiatric Medical History: Reports: Hx Depression Denies: Hx Bipolar Disorder, Hx Dementia, Hx Post Traumatic Stress Disorder, Hx Schizophrenia Traumatic Medical History: Denies: Hx Fractures Infectious Medical History: Denies: Hx Hepatitis Past Surgical History: Denies: Hx Colostomy, Hx Open Heart Surgery, Hx Pacemaker - Immunizations Hx Diphtheria, Pertussis, Tetanus Vaccination: No Hx Pneumococcal Vaccination: 03/21/12 Review of Systems - Review of Systems Notes: REVIEW OF SYSTEMS: CONSTITUTIONAL : Denies recent illness. Denies recent unintentional weight loss. Denies fever, chills, or sweats. EENT: Denies eye, ear, throat, or mouth pain, discharge, or symptoms. Denies nasal or sinus congestion. CARDIOVASCULAR: Denies chest pain. RESPIRATORY: Denies shortness of breath, cough, congestion, difficulty breathing, or wheezing. GASTROINTESTINAL: Denies nausea, vomiting, and diarrhea. Denies abdominal pain. Denies constipation. GENITOURINARY: Denies difficulty urinating, burning, blood in urine, urgency or frequency. MUSCULOSKELETAL: Denies neck and back pain. Denies joint pain or swelling. SKIN: See HPI HEMATOLOGIC : Denies easy bruising or bleeding. LYMPHATIC: Denies swollen, painful, enlarged glands. NEUROLOGICAL: Denies no numbness or tingling denies weakness. Denies headache. Denies altered mental status. Denies alteration in speech. PSYCHIATRIC: Denies stress, anxiety, alteration in sleep patterns, or depression. All other systems reviewed and negative. Physical Exam - Vital signs Vitals: Temp Pulse Resp BP Pulse Ox 97.8 F 82 20 134/73 H 95 07/26/18 06:11 07/26/18 06:11 07/26/18 06:11 07/26/18 06:11 07/26/18 06:11 - Notes Notes: PHYSICAL EXAMINATION: GENERAL: Appears well, healthy, well-nourished, no acute distress. HEAD: Normocephalic, atraumatic. EYES: PERRL, conjunctiva normal, all extraocular movements intact, sclera n onicteric ENT: Moist mucous membranes. NECK: Supple, no noticeable swelling, redness, rash. Normal range of motion. LUNGS: Equal breath sounds bilaterally and clear to auscultation. No wheezes rales or rhonchi. CARDIOVASCULAR: S1-S2, regular rate, regular rhythm. Radial pulses 2+, normal. ABDOMEN: Normoactive bowel sounds. Soft, nontender, no guarding, no rebound tenderness, and no masses palpated. EXTREMITIES: Normal strength and range of motion, no pitting or edema. No cyanosis. NEUROLOGICAL: Moves all extremities upon command. Strength 5/5 in all extremities. PSYCH: Normal mood, normal affect. SKIN: Warm, moist and groin area. Erythema noted to bilateral groin. Normal skin turgor. Course - Re-evaluation Re-evalutation: 07/26/18 06:45 Patient's physical exam is consistent with a fungal infection, as he has been dealing with this issue for months. Bilateral groin is very moist and erythematous. Due to the erythema that he has, I am also concerned for cellulitis. He will be given nystatin and Keflex. I told him to follow closely with his primary care provider in regards to this visit. He states that he will try his best to get help with applying the nystatin cream, as he is morbidly obese. I specifically told him to return if he develops a fever, his symptoms get worse after 3 days of antibiotics, or if he has any symptoms that are worrisome to him. Follow-up precautions were given. Verbal discharge instructions were given to the patient. They verbalized understanding. They a re stable for discharge. - Vital Signs Vital signs: Temp Pulse Resp BP Pulse Ox 97.7 F 78 20 144/63 H 95 07/26/18 07:52 07/26/18 07:52 07/26/18 07:52 07/26/18 07:52 07/26/18 06:11 Discharge - Discharge Clinical Impression: Fungal infection Cellulitis Qualifiers: Site of cellulitis: trunk Site of cellulitis of trunk: groin Qualified Code(s): L03.314 - Cellulitis of groin Condition: Stable Disposition: HOME, SELF-CARE Additional Instructions: You were seen today in the emergency department for groin itching. You are being sent home with antibiotics and antifungal cream. Please finish all your antibiotics as prescribed. Please use the antifungal cream as prescribed. Please follow-up with your primary care provider in regards to this visit. If you develop a fever greater than 100.4 F, or have any symptoms that are worrisome to you, please return to the emergency department. Please make sure you keep your groin area dry as much as you can. Prescriptions: Cephalexin Monohydrate [Keflex 500 mg Capsule] 500 mg PO Q6H 7 Days #28 capsule Nystatin [Mycostatin Cream 15 gm] 1 applic TP BID #15 gm Referrals: DAMIÁN BARTON, [Primary Care Provider] - Follow up in 1 week
[2018-07-26 07:54] VITALS: BP 144/63
== END 2018-07-26 07:54 | disposition home or self-care (01) ==
LOC: ER 06:07
DX: B35.6 Tinea cruris (principal); L03.314 Cellulitis of groin; R10.9 Unspecified abdominal pain; Z87.891 Personal history of nicotine dependence; I50.9 Heart failure, unspecified; I11.0 Hypertensive heart disease with heart failure; J44.9 Chronic obstructive pulmonary disease, unspecified
CPT/HCPCS: 99284

== ENCOUNTER → 2018-09-21 | Outpatient (CLI) | payer MEDICARE, MEDICAID ==
--- NOTE | 2018-09-21 16:45 | XCELERA REPORT ---
[address] [address] Lower Extremity Venous Evaluation Procedure: Color flow and duplex imaging bilaterally of the veins of the lower extremities as well as the Common Femoral veins. Right Sided Venous Evaluation Study somewhat limited due to body habitus. Reflux noted incidentally in the Popliteal vein. Otherwise normal vessel filling wall to wall, compression and augmentation as well as Colour flow down to the infrageniculate veins. Left Sided Venous Evaluation Study somewhat limited due to body habitus. Otherwise normal vessel filling wall to wall, compression and augmentation as well as Colour flow down to the infrageniculate veins. Interpretation Summary No duplex evidence of DVT or obstruction in the bilateral lower extremities. Reflux noted in the right Popliteal vein. A dedicated reflux study may be indicated. Name: USJATA GONSALEZ Age: 67 yrs Gender: Male : 1950 Patient Status: Preadmit Patient Location: Study Date: 09/21/2018 01:17 PM Reason For Study: EDEMA Ordering Physician: DAMIÁN BARTON Performed By: Blu Lopez : DAMIÁN BARTON > Tarik Whiting
--- NOTE | 2018-09-22 09:34 | XCELERA REPORT ---
[address] [address] Tel: [phone] Fax: [phone] Lower Extremity Arterial Evaluation Name: SUJATA GONSALEZ Age: 67 yrs Gender: Male : 1950 Patient Status: Preadmit Patient Location: SP Study Date: 09/21/2018 02:56 PM Procedure: Ankle brachial indicies performed. Reason For Study: ATHEROSCLEROSIS Ordering Physician: DAMIÁN BARTON Performed By: Blu Lopez Right Side Arterial Evaluation CHARANJIT in Anterior Tibial:1.29. Multiphasic waveform. Left Side Arterial Evaluation CHARANJIT in Anterior Tibial:1.39. Multiphasic waveform. Interpretation Summary Normal CHARANJIT's. Suggesting normal arterial system, within the limitations of this technique. : DAMIÁN BARTON > Tarik Whiting
== END ==
LOC: SP 11:40
PROVIDERS: ATTEND Student in an Organized Health Care Education/Training Program
DX: I70.213 Atherosclerosis of native arteries of extremities with intermittent claudication, bilateral legs (principal); L30.3 Infective dermatitis; R60.9 Edema, unspecified
CPT/HCPCS: 93922; 93970

== ENCOUNTER → 2019-04-20 | Outpatient (CLI) | payer MEDICARE, MEDICAID ==
--- NOTE | 2019-04-20 09:22 | RADIOLOGY REPORT (SQ) ---
EXAM DESCRIPTION: SHOULDER LEFT 2 OR MORE VIEWS COMPLETED DATE/TIME: 04/20/2019 7:53 am REASON FOR STUDY: SHOULDER PAIN COMPARISON: None. NUMBER OF VIEWS: Three views. TECHNIQUE: Internal rotation, external rotation, and Y view images acquired of the left shoulder. LIMITATIONS: None. FINDINGS: MINERALIZATION: Normal. BONES: No acute fracture. No worrisome bone lesions. JOINTS: No dislocation. Mild to moderate acromioclavicular and glenohumeral osteophytosis. VISUALIZED LUNGS AND RIBS: No pneumothorax. No rib fracture. SOFT TISSUES: No radiopaque foreign body. OTHER: No other significant finding. IMPRESSION: No evidence of acute bony abnormality. Nlna-rt-inofcceu acromioclavicular and glenohumeral osteoarthropathy. TECHNICAL DOCUMENTATION: JOB ID: [id number] 2010 [employer]- All Rights Reserved Reading location - IP/workstation name: [email or web address]
== END ==
LOC: OD 07:40
PROVIDERS: ATTEND Student in an Organized Health Care Education/Training Program
DX: M19.012 Primary osteoarthritis, left shoulder (principal); M25.512 Pain in left shoulder

== ENCOUNTER 2019-10-10 11:54 | Emergency (ER) | payer MEDICARE, MEDICAID ==
[2019-10-10 12:20] LABS: ABSOLUTE BASOPHILS # (AUTO) 0.1 10^3/uL (0.0-0.2); ABSOLUTE EOSINOPHILS # (AUTO) 0.1 10^3/uL (0.0-0.6); ABSOLUTE LYMPHOCYTES (AUTO) 1.6 10^3/uL (0.5-4.7); ABSOLUTE MONOCYTES (AUTO) 0.7 10^3/uL (0.1-1.4); ABSOLUTE NEUT (AUTO) 3.5 10^3/uL (1.7-8.2); BASOPHILS % (AUTO) 0.8 % (0-2); EOSINOPHILS % (AUTO) 1.7 % (0-6); HEMATOCRIT 41.2 % (37.9-51.0); HEMOGLOBIN 13.6 g/dL (13.5-17.0); LYMPHOCYTES % (AUTO) 27.4 % (13-45); MEAN CORPUSCULAR HEMOGLOBIN 30.6 pg (27.0-33.4); MEAN CORPUSCULAR HGB CONC 33.1 g/dL (32.0-36.0); MEAN CORPUSCULAR VOLUME 93 fl (80-97); MONOCYTES % (AUTO) 11.9 % (3-13); PLATELET COUNT 207 10^3/uL (150-450); RED BLOOD COUNT 4.45 10^6/uL (4.35-5.55); RED CELL DISTRIBUTION WIDTH 14.8 % (11.5-14.0); SEGMENTED NEUTROPHILS % (AUTO) 58.2 % (42-78); TOTAL CELLS COUNTED % (AUTO) 100 %
[2019-10-10 12:32] LABS: INTERNATIONAL RATION (INR) 0.89; PROTHROMBIN TIME 12.3 SEC (11.4-15.4)
[2019-10-10 12:38] LABS: ALBUMIN 3.9 g/dL (3.5-5.0); ALKALINE PHOSPHATASE 83 U/L (38-126); ANION GAP 8 (5-19); ASPARTATE AMINO TRANSFERASE 32 U/L (17-59); BILIRUBIN,DIRECT 0.3 mg/dL (0.0-0.4); BILIRUBIN,TOTAL 0.7 mg/dL (0.2-1.3); BLOOD UREA NITROGEN 24 mg/dL (7-20); CALCIUM 9.1 mg/dL (8.4-10.2); CARBON DIOXIDE 31 mmol/L (22-30); CHLORIDE 102 mmol/L (98-107); GLUCOSE 113 mg/dL (75-110); POTASSIUM 4.9 mmol/L (3.6-5.0)
[2019-10-10 12:39] LABS: TOTAL PROTEIN 6.7 g/dL (6.3-8.2)
--- NOTE | 2019-10-10 13:26 | RADIOLOGY REPORT (SQ) ---
EXAM DESCRIPTION: CT HEAD WITHOUT IMAGES COMPLETED DATE/TIME: 10/10/2019 1:15 pm REASON FOR STUDY: dizzy/cp COMPARISON: CT of the head without contrast from 08/30/2015. TECHNIQUE: Axial images acquired through the brain without intravenous contrast. Images reviewed wi th bone, brain and subdural windows. Additional sagittal and coronal reconstructions were generated. Images stored on PACS. All CT scanners at this facility use dose modulation, iterative reconstruction, and/or weight based d osing when appropriate to reduce radiation dose to as low as reasonably achievable (ALARA). [facility]: Dose Right [facility]: CareDose [facility]: Dose Right [facility]: Teradose 4D [facility]: Eyeona RADIATION DOSE: CT Rad equipment meets quality standard of care and radiation dose reduction techniq ues were employed. CTDIvol: 53.2 mGy. DLP: 1150 mGy-cm. LIMITATIONS: None. FINDINGS: There is no acute intracranial hemorrhage, vascular territorial infarct, extra-axial colle ction, mass effect or midline shift. The peter-white matter differentiation is preserved. The peter-w he matter differentiation is preserved. The caliber of the ventricles is concordant with the degre e of sulcation. There is no effacement of the cerebral sulci or basal subarachnoid cisterns. The globes are aphakic. The orbits are intact. The polypoid low-attenuation lesions in the left max illary sinus likely represent mucous retention cysts. There is no fracture of the calvarium. IMPRESSION: No acute intracranial abnormality. EVIDENCE OF ACUTE STROKE: NO. COMMENT: Quality ID # 436: Final reports with documentation of one or more dose reduction techniques (e.g., Automated exposure control, adjustment of the mA and/or kV according to patient size, use of iterative reconstruction technique) TECHNICAL DOCUMENTATION: JOB ID: [id number] 2010 [employer]- All Rights Reserved Reading location - IP/workstation name: [email or web address]
--- NOTE | 2019-10-10 13:44 | RADIOLOGY REPORT (SQ) ---
EXAM DESCRIPTION: CTA CHEST IMAGES COMPLETED DATE/TIME: 10/10/2019 1:15 pm REASON FOR STUDY: dizzy/cp COMPARISON: CT of the chest with contrast from 04/27/2016. TECHNIQUE: CT scan of the chest performed using helical scanning technique with dynamic intravenous contrast injection. Images reviewed with lung, soft tissue and bone windows. Reconstructed coronal and sagittal MPR images reviewed. Additional 3 dimensional post-processing performed to develop Maximal Intensity Projection images (NM P). All images stored on PACS. All CT scanners at this facility use dose modulation, iterative reconstruction, and/or weight based d osing when appropriate to reduce radiation dose to as low as reasonably achievable (ALARA). [facility]: Dose Right [facility]: CareDose [facility]: Dose Right [facility]: Teradose 4D [facility]: Scratch Hard CONTRAST TYPE AND DOSE: Contrast/concentration: Isovue 350.00 mmol/ml; Total Contrast Delivered: 75. 0 ml; Total Saline Delivered: 70.0 ml Contrast bolus optimized for the pulmonary arteries. RENAL FUNCTION: Creatinine 0.91 milligrams/deciliter. RADIATION DOSE: CT Rad equipment meets quality standard of care and radiation dose reduction techniq ues were employed. CTDIvol: 18.8 - 42.3 mGy. DLP: 1549 mGy-cm. LIMITATIONS: None. FINDINGS: LUNGS AND PLEURA: The trachea and main bronchi are patent. There are chronic areas of con solidation in the lingula (image 57 of series 5) and posterior basal segment of the left lower lobe ( image 62 of series 5) that are associated with volume loss. There is no acute consolidation, ground- glass opacification, pleural effusion or pneumothorax. There is no greater than 6 mm solid pulmonary nodule. AORTA AND GREAT VESSELS: Evaluation is limited as the contrast bolus was optimized for evaluation of pulmonary arteries. There is no thoracic aortic dissection. HEART: Cardiomegaly and atherosclerotic calcification of the mitral annulus. There is no pericardial effusion. PULMONARY ARTERIES: There is no central or segmental pulmonary embolus. Evaluation of the segmental branches of the pulmonary arteries is limited due to motion artifact HILAR AND MEDIASTINAL STRUCTURES: No adenopathy or mass. HARDWARE: None in the chest. UPPER ABDOMEN: No acute findings. THYROID AND OTHER SOFT TISSUES: No mass or adenopathy. BONES: No acute findings. 3D MIPS: Confirm above findings. OTHER: No other finding. IMPRESSION: 1. No central segmental pulmonary embolus. Evaluation of the subsegmental branches of the pulmonary arteries is limited due to respiratory motion artifact. 2. Chronic areas of consolidation in the lingula (image 57 of series 5) and posterior basal segment o f the left lower lobe (image 62 of series 5) that are associated with volume loss. There is no acute consolidation, ground-glass opacification, pleural effusion or pneumothorax. COMMENT: Quality ID # [id number]: Final reports with documentation of one or more dose reduction techniques (e.g., Automated exposure control, adjustment of the mA and/or kV according to patient size, use of iterative reconstruction technique) TECHNICAL DOCUMENTATION: JOB ID: [id number] 2010 [employer]- All Rights Reserved Reading location - IP/workstation name: [email or web address]
--- NOTE | 2019-10-10 15:03 | ER Document Report ---
ED Dizziness/Weakness - General Chief Complaint: Dizziness Stated Complaint: DIZZINESS Time Seen by Provider: 10/10/19 12:14 Primary Care Provider: DAMIÁN BARTON DO [Primary Care Provider] - Follow up as needed Mode of Arrival: Medic Information source: Patient TRAVEL OUTSIDE OF THE [place] IN LAST 30 DAYS: No - HPI Notes: Patient is brought in by ambulance for dizziness. Patient is a difficult historian because he gives contradictory statements repeatedly. Patient is told me he had a headache then he told me he did not have a headache. Patient does repeatedly say he has felt dizzy. It seems that he feels dizzy after taking medicine for what he states is his "anginal medicine. Although he denied that this was nitroglycerin but he said he did not know the name of the medicine but it was not nitroglycerin. Patient states that he has not had chest pain but told me that he was taking the medicine for angina. So the exact details of what led up to calling the ambulance is unclear. It is also not clear who called the ambulance. Currently patient denies any chest pain or shortness of breath. He states he feels dizzy but denies headache. His dizziness is appears to be constant. It appears to be worse with movement and better with rest. It appears to be moderate in intensity. There is no known radiation of the symptom. Patient denies nausea there is been no vomiting. He denies any fevers. He denies any cough or cold. Patient has changes consistent with chronic venous stasis on his lower extremities but states there is been no new changes of his lower extremities. He states he sees wound care for these chronic wound problems of his lower extremities. - Related Data Allergies/Adverse Reactions: Penicillins Allergy (Unknown, Verified 04/19/18 10:57) Past Medical History - General Information source: Patient - Social History Smoking Status: Former Smoker Frequency of alcohol use: None Drug Abuse: None Family History: COPD, Hypertension Patient has homicidal ideation: No - Past Medical History Cardiac Medical History: Reports: Hx Congestive Heart Failure, Hx Hypercholesterolemia, Hx Hypertension - MEDICATED, Hx Peripheral Vascular Disease Denies: Hx Atrial Fibrillation, Hx Coronary Artery Disease, Hx Heart Attack, Hx Pulmonary Embolism, Hx Heart Murmur Pulmonary Medical History: Reports: Hx COPD, Hx Pneumonia, Hx Respiratory Failure - On home oxygen, Hx Sleep Apnea Denies: Hx Asthma, Hx Bronchitis, Hx Tuberculosis Neurological Medical History: Denies: Hx Cerebrovascular Accident, Hx Seizures, Hx Parkinson's Disease Renal/ Medical History: Denies: Hx Peritoneal Dialysis Malignancy Medical History: Denies Hx Lung Cancer GI Medical History: Reports: Hx Gastroesophageal Reflux Disease, Hx Ulcer - YRS AGO. Denies: Hx Crohn's Disease, Hx Hepatitis, Hx Hiatal Hernia, Hx Irritable Bowel, Hx Liver Failure, Hx Pancreatitis Musculoskeletal Medical History: Reports Hx Arthritis, Denies Hx Fibromyalgia, Denies Hx Multiple Sclerosis, Denies Hx Muscular Dystrophy Psychiatric Medical History: Reports: Hx Depression Denies: Hx Bipolar Disorder, Hx Dementia, Hx Post Traumatic Stress Disorder, Hx Schizophrenia Traumatic Medical History: Denies: Hx Fractures Infectious Medical History: Denies: Hx Hepatitis Past Surgical History: Denies: Hx Colostomy, Hx Open Heart Surgery, Hx Pacemaker - Immunizations Hx Diphtheria, Pertussis, Tetanus Vaccination: No Hx Pneumococcal Vaccination: 04/28/11 Review of Systems - Review of Systems Constitutional: Weakness. denies: Chills, Fever Respiratory: denies: Cough, Short of breath Gastrointestinal: denies: Diarrhea, Vomiting -: Yes All other systems reviewed and negative Physical Exam - Vital signs Vitals: Resp BP Pulse Ox 19 154/70 H 94 10/10/19 11:58 10/10/19 11:58 10/10/19 11:58 Interpretation: Hypertensive - General General appearance: Appears well, Alert In distress: None - HEENT Head: Normocephalic, Atraumatic Eyes: Normal Pupils: PERRL - Respiratory Respiratory status: No respiratory distress Chest status: Nontender Breath sounds: Decreased air movement Chest palpation: Normal - Cardiovascular Rhythm: Regular - The monitor in the room is reading the patient's heart rate inaccurately. Heart sounds: Normal auscultation Murmur: No - Abdominal Inspection: Morbidly Obese Distension: No distension Bowel sounds: Normal Tenderness: Nontender Organomegaly: No organomegaly - Back Back: Normal, Nontender - Extremities General upper extremity: Normal inspection, Nontender, Normal color, Normal ROM, Normal temperature General lower extremity: Other - Both lower extremities are swollen with 3+ pitting edema. They are erythematous tender and indurated. The changes appear acute on chronic.. No: Luna's sign - Neurological Neuro grossly intact: Yes Cognition: Normal Orientation: AAOx4 Erum Coma Scale Eye Opening: Spontaneous Erum Coma Scale Verbal: Oriented Erum Coma Scale Motor: Obeys Commands [place] Coma Scale Total: 15 Speech: Normal Sensory: Normal - Psychological Associated symptoms: Normal affect, Normal mood - Skin Skin Temperature: Warm Skin Moisture: Dry Skin Color: Erythema Course - Re-evaluation Re-evalutation: 10/10/19 16:00 Patient presents with dizziness. Patient states that he has had dizziness now for several days. I worked the patient up thoroughly for causes of dizziness. I see no evidence of vital sign abnormality. There is no evidence of arrhythmias. CT scans of the head and chest show no evidence of intracranial pathology or pulmonary embolism. Patient has been stable here the entire time. I called and spoke with the patient's family physician office and they said patient frequently calls and complains of dizziness and they have been working him up for this over the last several months. He was also recently started on sertraline 2 weeks ago and seems to have increased dizziness since then and they have stated that I can tell the patient to stop the sertraline. In addition I noticed the patient has some chronic venous stasis changes of his lower extremities and they are somewhat erythematous and warm. However he has no fever or elevated white blood cell count. And he states this is the way his legs always look. I did call and check with wound clinic and they state that the patient had not been there in several months but state they will call the patient and have him seen tomorrow. I think this is a reasonable disposition for his legs. I will not start him on antibiotics since he is going to be seen tomorrow. - Vital Signs Vital signs: Temp Pulse Resp BP Pulse Ox 20 154/81 H 93 10/10/19 15:01 10/10/19 15:01 10/10/19 15:01 - Laboratory Result Diagrams: 10/10/19 12:04 10/10/19 12:04 Laboratory results interpreted by me: 10/10/19 10/10/19 12:04 12:04 RDW 14.8 H Carbon Dioxide 31 H BUN 24 H Glucose 113 H - Diagnostic Test Radiology reviewed: Image reviewed, Reports reviewed - EKG Interpretation by Me EKG shows normal: Sinus rhythm Rate: Normal - 84 Rhythm: NSR [place]/QRS: Left axis deviation Discharge - Discharge Clinical Impression: Dizziness, Venous stasis ulcers of both lower extremities Condition: Stable Disposition: HOME, SELF-CARE Instructions: Dizziness ([facility]) Additional Instructions: Please go to Dr. Chavez office tomorrow as scheduled Wound care will contact you today or tomorrow to schedule an appointment for your legs Please stop Sertraline Referrals: DAMIÁN BARTON, DO [Primary Care Provider] - Follow up tomorrow
--- NOTE | 2019-10-10 15:16 | EKG REPORT ---
SEVERITY:- OTHERWISE NORMAL ECG - SINUS RHYTHM BORDERLINE LEFT AXIS DEVIATION : Confirmed by: Raul Sinha MD 10-Oct-2019 15:16:19
--- NOTE | 2019-10-10 16:43 | RADIOLOGY REPORT (SQ) ---
EXAM DESCRIPTION: VENOUS BILATERAL LOWER IMAGES COMPLETED DATE/TIME: 10/10/2019 4:19 pm REASON FOR STUDY: swelling/pain COMPARISON: None. TECHNIQUE: Dynamic and static peter scale and color images acquired of both lower extremity venous sy stems. Selected spectral images acquired with additional compression and augmentation maneuvers. Imag es stored on PACS. LIMITATIONS: Unable to visualize the distal femoral and peroneal veins bilaterally due to swelling a nd the patient's body habitus. FINDINGS: RIGHT LEG COMMON FEMORAL AND FEMORAL: Normal phasicity, compression and augmentation. No visualized echogenic m aterial on peter scale. No defects on color images. POPLITEAL: Normal compression and augmentation. No visualized echogenic material on peter scale. No de fects on color images. CALF VESSELS: Normal compression and augmentation. No visualized echogenic material on peter scale. No defects on color image. GSV AND SSV: Normal compression. No visualized echogenic material on peter scale. No defects on color images. ANY DEEP VENOUS INSUFFICIENCY: No. ANY EVIDENCE OF POPLITEAL CYST: No. OTHER: No other finding. LEFT LEG COMMON FEMORAL AND FEMORAL: Normal phasicity, compression and augmentation. No visualized echogenic m aterial on peter scale. No defects on color images. POPLITEAL: Normal compression and augmentation. No visualized echogenic material on peter scale. No de fects on color images. CALF VESSELS: Normal compression and augmentation. No visualized echogenic material on peter scale. No defects on color images. GSV AND SSV: Normal compression. No visualized echogenic material on peter scale. No defects on color images. ANY DEEP VENOUS INSUFFICIENCY: No. ANY EVIDENCE POPLITEAL CYST: No. OTHER: No other finding. IMPRESSION: Unable to visualize the distal femoral and peroneal veins bilaterally due to swelling an d the patient's body habitus. There is no evidence of DVT in the visualized portions of the vasculat ure. TECHNICAL DOCUMENTATION: JOB ID: [id number] 2010 [employer]- All Rights Reserved Reading location - IP/workstation name: [email or web address]
[2019-10-10 17:23] VITALS: BP 154/68
== END 2019-10-10 17:18 | disposition home or self-care (01) ==
LOC: ER 11:54
DX: I83.009 Varicose veins of unspecified lower extremity with ulcer of unspecified site (principal); R42 Dizziness and giddiness; R51 Headache; Z79.899 Other long term (current) drug therapy; Z88.0 Allergy status to penicillin
CPT/HCPCS: 36415; 70450; 71275; 80053; 84484; 85025; 85610; 93005; 93010; 93970; 99285

== ENCOUNTER → 2019-11-06 | Outpatient (CLI) | payer MEDICARE, MEDICAID ==
--- NOTE | 2019-11-06 15:43 | RADIOLOGY REPORT (SQ) ---
EXAM DESCRIPTION: PHYSIO ARTERIAL LTD IMAGES COMPLETED DATE/TIME: 11/06/2019 2:30 pm REASON FOR STUDY: BILATERAL CALF ULCERS L97.212 NON-PRESSURE CHRONIC ULCER OF RIGHT CALF W FAT LAYE R COMPARISON: None. TECHNIQUE: Dynamic and static peter scale and color images acquired of the lower extremity arteries. Additional selected spectral images recorded. LIMITATIONS: Body habitus. Bandage material left lower extremity. Unable to obtain ABIs. FINDINGS: RIGHT LEG: INFLOW ARTERIES: Not imaged. FEMORAL ARTERIES:Multiphasic waveforms. Normal, no velocity elevation to suggest focal stenosis. Norm al color Doppler evaluation. No aneurysm. POPLITEAL ARTERY:Multiphasic waveforms. Normal, no velocity elevation to suggest focal stenosis. Norm al color Doppler evaluation. No aneurysm. PATENT TIBIOPERONEAL TRUNK AND 3 VESSEL RUNOFF: Yes. OTHER: No other significant finding. LEFT LEG: INFLOW ARTERIES: Not imaged. FEMORAL ARTERIES:Multiphasic waveforms. Normal, no velocity elevation to suggest focal stenosis. Norm al color Doppler evaluation. No aneurysm. POPLITEAL ARTERY:Multiphasic waveforms. Normal, no velocity elevation to suggest focal stenosis. Norm al color Doppler evaluation. No aneurysm. PATENT TIBIOPERONEAL TRUNK AND 3 VESSEL RUNOFF: Two-vessel runoff. The proximal posterior tibial art tessa is occluded. Retrograde flow distally. OTHER: No other significant finding. IMPRESSION: Technical limitations. Small vessel disease. No significant stenosis identified above the knee. TECHNICAL DOCUMENTATION: JOB ID: [id number] 2010 [employer]- All Rights Reserved Reading location - IP/workstation name: [email or web address]
--- NOTE | 2019-11-06 15:43 | RADIOLOGY REPORT (SQ) ---
EXAM DESCRIPTION: ARTERIAL LOWER EXTREM BILAT COMPLETE DATE/TIME: 11/06/2019 2:30 pm REASON FOR STUDY: BILATERAL CALF ULCERS L97.212 NON-PRESSURE CHRONIC ULCER OF RIGHT CALF W FAT LAYE R FINDINGS: Please see combined report for performance of procedure and radiologic supervision and int erpretation. IMPRESSION: Please see combined report for performance of procedure and radiologic supervision and i nterpretation. Reading location - IP/workstation name: [email or web address]
== END ==
LOC: SP 12:25
PROVIDERS: ATTEND Nurse Practitioner Family
DX: L97.212 Non-pressure chronic ulcer of right calf with fat layer exposed (principal); L97.222 Non-pressure chronic ulcer of left calf with fat layer exposed
CPT/HCPCS: 93922; 93925

== ENCOUNTER 2019-12-07 18:51 | Emergency (ER) | payer MEDICARE, MEDICAID ==
--- NOTE | 2019-12-07 19:23 | ER Document Report ---
ED Medical Screen (RME) - General Chief Complaint: Dizziness Stated Complaint: SUGAR LOW/DIZZYNESS Time Seen by Provider: 12/07/19 19:20 Primary Care Provider: RUSSELL BENITEZ NP, LOBBY CONCIERGE [Primary Care Provider] - Follow up as needed Mode of Arrival: Wheelchair Information source: Patient Notes: 69-year-old male presented to ED for complaint of dizziness abdominal pain and s weating. He states this morning his sugar was over 200 and around 1130 his sugar was 76. He states he did eat a half a substance then. He states he has not checked his sugar since then. He states he has felt dizzy and lightheaded. He states he does use O2 3 L constantly at home he does have sleep apnea high blood pressure cholesterol and diabetes. I have ordered blood urine Accu-Chek EKG and he will be seen by another provider. I have greeted and performed a rapid initial assessment of this patient. A comprehensive ED assessment and evaluation of the patient, analysis of test results and completion of medical decision making process will be conducted by an additional ED providers. TRAVEL OUTSIDE OF THE [place] IN LAST 30 DAYS: No - Related Data Allergies/Adverse Reactions: Penicillins Allergy (Unknown, Verified 04/19/18 10:57) Past Medical History - Past Medical History Cardiac Medical History: Reports: Hx Congestive Heart Failure, Hx Hypercholesterolemia, Hx Hypertension - MEDICATED, Hx Peripheral Vascular Disease Denies: Hx Atrial Fibrillation, Hx Coronary Artery Disease, Hx Heart Attack, Hx Pulmonary Embolism, Hx Heart Murmur Pulmonary Medical History: Reports: Hx COPD, Hx Pneumonia, Hx Respiratory Failure - On home oxygen, Hx Sleep Apnea Denies: Hx Asthma, Hx Bronchitis, Hx Tuberculosis Neurological Medical History: Denies: Hx Cerebrovascular Accident, Hx Seizures, Hx Parkinson's Disease Renal/ Medical History: Denies: Hx Peritoneal Dialysis Malignancy Medical History: Denies Hx Lung Cancer GI Medical History: Reports: Hx Gastroesophageal Reflux Disease, Hx Ulcer - YRS AGO. Denies: Hx Crohn's Disease, Hx Hepatitis, Hx Hiatal Hernia, Hx Irritable Bowel, Hx Liver Failure, Hx Pancreatitis Musculoskeltal Medical History: Reports Hx Arthritis, Denies Hx Fibromyalgia, Denies Hx Multiple Sclerosis, Denies Hx Muscular Dystrophy Psychiatric Medical History: Reports: Hx Depression Denies: Hx Bipolar Disorder, Hx Dementia, Hx Post Traumatic Stress Disorder, Hx Schizophrenia Traumatic Medical History: Denies: Hx Fractures Infectious Medical History: Denies: Hx Hepatitis Past Surgical History: Denies: Hx Colostomy, Hx Open Heart Surgery, Hx Pacemaker - Immunizations Hx Diphtheria, Pertussis, Tetanus Vaccination: No Physical Exam - Vital signs Vitals: Temp Pulse Resp BP Pulse Ox 98.3 F 97 18 166/84 H 97 12/07/19 18:58 12/07/19 18:58 12/07/19 18:58 12/07/19 18:58 12/07/19 18:58 Course - Vital Signs Vital signs: Temp Pulse Resp BP Pulse Ox 98.3 F 97 18 166/84 H 97 12/07/19 18:58 12/07/19 18:58 12/07/19 18:58 12/07/19 18:58 12/07/19 18:58 Doctor's Discharge - Discharge Referrals: RUSSELL BENITEZ NP, LOBBY CONCIERGE [Primary Care Provider] - Follow up as needed
[2019-12-07 20:06] LABS: ABSOLUTE EOSINOPHILS # (AUTO) 0.1 10^3/uL (0.0-0.6); ABSOLUTE LYMPHOCYTES (AUTO) 2.1 10^3/uL (0.5-4.7); ABSOLUTE MONOCYTES (AUTO) 0.7 10^3/uL (0.1-1.4); BASOPHILS % (AUTO) 0.7 % (0-2); EOSINOPHILS % (AUTO) 1.4 % (0-6); HEMOGLOBIN 13.8 g/dL (13.5-17.0); LYMPHOCYTES % (AUTO) 30.3 % (13-45); MEAN CORPUSCULAR HEMOGLOBIN 30.7 pg (27.0-33.4); MEAN CORPUSCULAR HGB CONC 33.6 g/dL (32.0-36.0); MEAN CORPUSCULAR VOLUME 91 fl (80-97); MONOCYTES % (AUTO) 9.9 % (3-13); PLATELET COUNT 204 10^3/uL (150-450); RED CELL DISTRIBUTION WIDTH 15.2 % (11.5-14.0); SEGMENTED NEUTROPHILS % (AUTO) 57.7 % (42-78); TOTAL CELLS COUNTED % (AUTO) 100 %; WHITE BLOOD COUNT 6.9 10^3/uL (4.0-10.5)
[2019-12-07 20:09] LABS: VENOUS BLOOD BASE EXCESS 5.3 mmol/L; VENOUS BLOOD HCO3 33.1 mmol/L (20-32); VENOUS BLOOD PCO2 62.1 mmHg (35-63); VENOUS BLOOD PH 7.34 (7.30-7.42)
[2019-12-07 20:13] LABS: APPEARANCE,URINE CLEAR; BILIRUBIN,URINE NEGATIVE (NEGATIVE); COLOR,URINE YELLOW; GLUCOSE, URINE NEGATIVE (NEGATIVE); KETONES,URINE NEGATIVE (NEGATIVE); LEUKOCYTE ESTERASE,URINE NEGATIVE (NEGATIVE); NITRITE,URINE NEGATIVE (NEGATIVE); PROTEIN,URINE NEGATIVE (NEGATIVE); URINE SPECIFIC GRAVITY 1.028; UROBILINOGEN,URINE NEGATIVE mg/dL (<2.0)
[2019-12-07 20:24] LABS: ALBUMIN 4.1 g/dL (3.5-5.0); ALKALINE PHOSPHATASE 83 U/L (38-126); ANION GAP 8 (5-19); ASPARTATE AMINO TRANSFERASE 31 U/L (17-59); BILIRUBIN,DIRECT 0.1 mg/dL (0.0-0.4); BILIRUBIN,TOTAL 0.6 mg/dL (0.2-1.3); BLOOD UREA NITROGEN 32 mg/dL (7-20); CALCIUM 9.5 mg/dL (8.4-10.2); CARBON DIOXIDE 32 mmol/L (22-30); CHLORIDE 100 mmol/L (98-107); GLUCOSE 114 mg/dL (75-110); POTASSIUM 4.6 mmol/L (3.6-5.0); TOTAL PROTEIN 7.4 g/dL (6.3-8.2)
--- NOTE | 2019-12-07 22:25 | EKG REPORT ---
SEVERITY:- ABNORMAL ECG - SINUS RHYTHM INFERIOR INFARCT, OLD : Confirmed by: Raul Sinha MD 07-Dec-2019 22:25:00
--- NOTE | 2019-12-08 00:45 | ER Document Report ---
ED General - General Chief Complaint: Dizziness Stated Complaint: SUGAR LOW/DIZZYNESS Time Seen by Provider: 12/07/19 19:20 Primary Care Provider: RUSSELL BENITEZ EXTERMINATOR HELPER TERMITE, EXTERMINATOR HELPER TERMITE [Primary Care Provider] - Follow up as needed Mode of Arrival: Wheelchair TRAVEL OUTSIDE OF THE [place] IN LAST 30 DAYS: No - HPI Context: This is a 69-year-old male with a past medical history of COPD, continuous oxygen requirement of 3 L, diabetes, hypertension presenting to the emergency department for a episode of dizziness that occurred around 1130 hrs. yesterday morning. Patient states that his fingerstick blood sugar yesterday morning was 200 and at the on set of symptoms he had a blood sugar level in the 60s. Patient decided to come to the emergency department for further evaluation. Patient states he did eat something after he had the episode of dizziness and noted his blood sugar was 160s. Patient states that his symptoms have since resolved. Patient denies headache, visual changes, chest pain, shortness of breath, loss of sense of taste or loss of sense of smell, history of Covid infection, known exposure to Covid positive persons or persons under investigation for Covid. Patient denies nausea or vomiting. Patient denies anything exacerbating his symptoms other than possibly his blood sugar getting low. Patient thinks that his symptoms improved after he ate something. Associated symptoms: Other - See HPI Exacerbated by: Other - See HPI Relieved by: Other - See HPI - Related Data Allergies/Adverse Reactions: Penicillins Allergy (Unknown, Verified 04/19/18 10:57) Home Medications: bp med, chol med, sugar pills x2, fluid pill, Past Medical History - General Information source: Patient - Social History Smoking Status: Never Smoker Frequency of alcohol use: None Drug Abuse: None Family History: COPD, Hypertension Patient has suicidal ideation: No Patient has homicidal ideation: No - Past Medical History Cardiac Medical History: Reports: Hx Congestive Heart Failure, Hx Hypercholesterolemia, Hx Hypertension - MEDICATED, Hx Peripheral Vascular Disease Denies: Hx Atrial Fibrillation, Hx Coronary Artery Disease, Hx Heart Attack, Hx Pulmonary Embolism, Hx Heart Murmur Pulmonary Medical History: Reports: Hx COPD, Hx Pneumonia, Hx Respiratory Failure - On home oxygen, Hx Sleep Apnea Denies: Hx Asthma, Hx Bronchitis, Hx Tuberculosis Neurological Medical History: Denies: Hx Cerebrovascular Accident, Hx Seizures, Hx Parkinson's Disease Renal/ Medical History: Denies: Hx Peritoneal Dialysis Malignancy Medical History: Denies Hx Lung Cancer GI Medical History: Reports: Hx Gastroesophageal Reflux Disease, Hx Ulcer - YRS AGO. Denies: Hx Crohn's Disease, Hx Hepatitis, Hx Hiatal Hernia, Hx Irritable Bowel, Hx Liver Failure, Hx Pancreatitis Musculoskeletal Medical History: Reports Hx Arthritis, Denies Hx Fibromyalgia, Denies Hx Multiple Sclerosis, Denies Hx Muscular Dystrophy Psychiatric Medical History: Reports: Hx Depression Denies: Hx Bipolar Disorder, Hx Dementia, Hx Post Traumatic Stress Disorder, Hx Schizophrenia Traumatic Medical History: Denies: Hx Fractures Infectious Medical History: Denies: Hx Hepatitis Past Surgical History: Denies: Hx Colostomy, Hx Open Heart Surgery, Hx Pacemaker - Immunizations Hx Diphtheria, Pertussis, Tetanus Vaccination: No Hx Pneumococcal Vaccination: 04/28/11 Review of Systems - Review of Systems Constitutional: No symptoms reported EENT: No symptoms reported Cardiovascular: Dizziness Respiratory: No symptoms reported Gastrointestinal: No symptoms reported Genitourinary: No symptoms reported Male Genitourinary: No symptoms reported Musculoskeletal: No symptoms reported Skin: No symptoms reported Hematologic/Lymphatic: No symptoms reported Neurological/Psychological: No symptoms reported -: Yes All other systems reviewed and negative Physical Exam - Vital signs Vitals: Temp Pulse Resp BP Pulse Ox 98.3 F 97 18 166/84 H 97 12/07/19 18:58 12/07/19 18:58 12/07/19 18:58 12/07/19 18:58 12/07/19 18:58 - Notes Notes: CONSTITUTIONAL [Vital signs reviewed, Patient appears comfortable, Alert and oriented X 3, Normal stature.] HEAD [Atraumatic, Normocephalic.] EYES [Eyes are normal to inspection, No discharge from eyes, Extraocular muscles intact, Sclera are normal, Conjunctiva are normal. No horizontal or vertical nystagmus noted.] ENT [Ears normal to inspection, Nose examination normal, Mouth normal to inspection.] NECK [Normal ROM, No jugular venous distention, No meningeal signs, no carotid bruit.] RESPIRATORY CHEST [Chest is nontender, Breath sounds normal, No respiratory distress.] CARDIOVASCULAR [RRR, No murmurs, Normal S1 S2, No rub, No gallop.] ABDOMEN [Abdomen is nontender, No pulsatile masses, No other masses, Bowel sounds normal, No distension, No peritoneal signs, No hernias.] BACK [There is no CVA Tenderness, There is no tenderness to palpation, Normal inspection.] UPPER EXTREMITY [Inspection normal, No cyanosis, No clubbing, No edema, 2+ radial pulses.] LOWER EXTREMITY Patient's lower extremities are wrapped in Unna boot dressings bilaterally. There no deformities or crepitus appreciated. NEURO [No focal motor deficits, No focal sensory deficits, Speech normal.] SKIN [Skin is warm, Skin is dry, no rashes noted.] PSYCHIATRIC [Normal affect. ] Course - Re-evaluation Re-evalutation: 12/08/19 00:48 Results of ED MSE discussed with patient. All questions were answered prior to discharge. Emergency signs and symptoms, reasons to return to the emergency department discussed with patient. - Vital Signs Vital signs: Temp Pulse Resp BP Pulse Ox 98.3 F 79 16 155/80 H 98 12/07/19 18:58 12/08/19 00:05 12/08/19 00:05 12/08/19 00:05 12/08/19 00:05 - Laboratory Result Diagrams: 12/07/19 19:45 12/07/19 19:45 Laboratory results interpreted by me: 12/07/19 12/07/19 12/07/19 19:45 19:45 19:45 RDW 15.2 H VBG HCO3 33.1 H Carbon Dioxide 32 H BUN 32 H Glucose 114 H - EKG Interpretation by Me Additional EKG results interpreted by me: 12/08/19 00:49 EKG obtained on 12/07/2019 at 1935 hrs. was interpreted by this MD. Findings: Normal sinus rhythm, right 90, normal axis, SC interval appears to be within normal limits, P waves preceding QRS complexes, QRS complexes appear narrow, there are no obvious patterns of ST segment elevation, depression or reciprocal changes seen to suggest acute myocardial ischemia or infarction. When compared with prior EKG from 10/10/2019 no significant changes are appreciated. Impression: Normal sinus rhythm with nonspecific ST segments. Discharge - Discharge Clinical Impression: Dizziness Condition: Stable Disposition: HOME, SELF-CARE Instructions: Dizziness ([facility]) Additional Instructions: Return to the Emergency Department without delay if any worse. HOME CARE INSTRUCTIONS & INFORMATION: Thank you for choosing us for your medical needs. We hope you're satisfied with the care you received. After you leave, you must properly care for your problem and, at the same time, observe its progress. Any condition can change. Some illnesses can change rapidly over hours or days. If your condition worsens, return to the Emergency Department or see your physician promptly. ABOUT YOUR X-RAYS AND EKG'S: If you had an EKG or X-rays taken, they have been read by the Emergency Physician. The X-rays and EKG's will also be read by a Radiologist or Brief Writer within 24 hours. If discrepancies are noted, you will be notified by telephone. Please be certain the ED has a correct telephone number & address where you can be reached. Also, realize that some fractures or abnormalities do not show up on initial X-rays. If your symptoms continue, see your physician. ABOUT YOUR LABORATORY TEST: If you had laboratory tests, the results have been reviewed by the Emergency Physician. Some test results (for example cultures) may not be available for several days. You will be contacted if any test result shows you need additional treatment. Please be certain the ED has a correct telephone number and address where you can be reached. ABOUT YOUR MEDICATIONS: You will receive instructions on how to take your medicine on the prescription label you receive. Additional information may be provided by the Pharmacy. If you have questions afterwards, call the ED for clarification or further instructions. Some prescribed medications may cause drowsiness. Do not perform tasks such as driving a car or operating machinery without consulting your Pharmacist. If you feel you need a refill of pain medication, your condition will need re-evaluation. Please do not call for a refill of any medication. ABOUT YOUR SIGNATURE: Signature of this document acknowledges to followin. Understanding that you received emergency treatment and that you may be released before al medical problems are known or treated. Please be certain the ED has a correct phone number & address where you can be reached. 2. Acknowledgement that you will arrange for follow-up care as recommended. 3. Authorization for the Emergency Physician to provide information to your follow-up Physician in order to maximize your care. AT ANY TIME, IF YOUR SYMPTOMS CHANGE SIGNIFICANTLY OR WORSEN OR YOU DEVELOP NEW SYMPTOMS, RETURN TO THE EMERGENCY DEPARTMENT IMMEDIATELY FOR RE-EVALUATION. OUR GOAL IS TO PROVIDE EXCELLENT MEDICAL CARE! WE HOPE THAT WE HAVE MET YOUR EXPECTATIONS DURING YOUR EMERGENCY DEPARTMENT VISIT AND THAT YOU FEEL YOU HAVE RECEIVED EXCELLENT CARE! Referrals: RUSSELL BENITEZ NP, EXTERMINATOR HELPER TERMITE [Primary Care Provider] - 12/10/19
[2019-12-08 01:14] VITALS: BP 147/81
== END 2019-12-08 01:35 | disposition home or self-care (01) ==
LOC: ER 18:51
DX: R42 Dizziness and giddiness (principal); I11.0 Hypertensive heart disease with heart failure; I50.9 Heart failure, unspecified; E11.51 Type 2 diabetes mellitus with diabetic peripheral angiopathy without gangrene; E78.00 Pure hypercholesterolemia, unspecified; J44.9 Chronic obstructive pulmonary disease, unspecified; Z99.81 Dependence on supplemental oxygen; Z79.899 Other long term (current) drug therapy; Z88.0 Allergy status to penicillin
CPT/HCPCS: 36415; 80053; 81001; 82803; 82962; 84484; 85025; 93005; 93010; 99284

== ENCOUNTER 2019-12-12 13:47 | Emergency (ER) | payer MEDICARE, MEDICAID ==
[2019-12-12 14:01] VITALS: BP 195/93
--- NOTE | 2019-12-12 14:08 | ER Document Report ---
HPI - HPI Patient complains to provider of: Right shoulder pain Time Seen by Provider: 12/12/19 13:59 Onset: Other - 5 days Onset/Duration: Persistent Quality of pain: Achy Pain Level: 2 Context: Patient states that he picked up a jug of milk and orange juice and felt a pop in his right shoulder. Patient is right-hand dominant. Patient states injury occurred 5 days ago. Patient had persistent pain to the shoulder joint with movement. Associated Symptoms: Other - Right shoulder joint pain Exacerbated by: Movement Relieved by: Remaining still Similar symptoms previously: No Recently seen / treated by doctor: No - ROS ROS below otherwise negative: Yes Systems Reviewed and Negative: Yes All other systems reviewed and negative - CONSTITUTIONAL Constitutional: DENIES: Fever - NEURO Neurology: DENIES: Weakness - CARDIOVASCULAR Cardiovascular: DENIES: Chest pain - MUSCULOSKELETAL Musculoskeletal: REPORTS: Extremity pain - DERM Skin Color: Normal Skin Problems: None Past Medical History - General Information source: Patient - Social History Smoking Status: Never Smoker Frequency of alcohol use: None Drug Abuse: None Occupation: None Family History: COPD, Hypertension - Past Medical History Cardiac Medical History: Reports: Hx Congestive Heart Failure, Hx Hypercholesterolemia, Hx Hypertension - MEDICATED, Hx Peripheral Vascular Disease Denies: Hx Atrial Fibrillation, Hx Coronary Artery Disease, Hx Heart Attack, Hx Pulmonary Embolism, Hx Heart Murmur Pulmonary Medical History: Reports: Hx COPD, Hx Pneumonia, Hx Respiratory Failure - On home oxygen, Hx Sleep Apnea Denies: Hx Asthma, Hx Bronchitis, Hx Tuberculosis Neurological Medical History: Denies: Hx Cerebrovascular Accident, Hx Seizures, Hx Parkinson's Disease Renal/ Medical History: Denies: Hx Peritoneal Dialysis Malignancy Medical History: Denies Hx Lung Cancer GI Medical History: Reports: Hx Gastroesophageal Reflux Disease, Hx Ulcer - YRS AGO. Denies: Hx Crohn's Disease, Hx Hepatitis, Hx Hiatal Hernia, Hx Irritable Bowel, Hx Liver Failure, Hx Pancreatitis Musculoskeletal Medical History: Reports Hx Arthritis, Denies Hx Fibromyalgia, Denies Hx Multiple Sclerosis, Denies Hx Muscular Dystrophy Psychiatric Medical History: Reports: Hx Depression Denies: Hx Bipolar Disorder, Hx Dementia, Hx Post Traumatic Stress Disorder, Hx Schizophrenia Traumatic Medical History: Denies: Hx Fractures Infectious Medical History: Denies: Hx Hepatitis Surgical Hx: Negative - Immunizations Hx Diphtheria, Pertussis, Tetanus Vaccination: No Hx Pneumococcal Vaccination: 04/28/11 Vertical Provider Document - CONSTITUTIONAL Agree With Documented VS: Yes Exam Limitations: No Limitations General Appearance: WD/WN, No Apparent Distress - INFECTION CONTROL TRAVEL OUTSIDE OF THE [place] IN LAST 30 DAYS: No - HEENT HEENT: Atraumatic, Normocephalic - NECK Neck: Normal Inspection, Supple - RESPIRATORY Respiratory: Breath Sounds Normal, No Respiratory Distress - CARDIOVASCULAR Cardiovascular: Regular Rate, Regular Rhythm. negative: Tachycardia Pulses: Normal: Radial - MUSCULOSKELETAL/EXTREMETIES Musculoskeletal/Extremeties: MAEW, FROM, Tender - Right anterior shoulder joint tenderness, tenderness over right AC joint, patient with full active range of motion, no deformity or dislocation, no crepitus, No Edema. negative: Eccymosis - NEURO Level of Consciousness: Awake, Alert, Appropriate Motor/Sensory: No Motor Deficit, No Sensory Deficit - DERM Integumentary: Warm, Dry Course - Vital Signs Vital signs: Temp Pulse Resp BP Pulse Ox 98.3 F 96 22 H 195/93 H 96 12/12/19 13:59 12/12/19 13:59 12/12/19 13:59 12/12/19 13:59 12/12/19 13:59 - Diagnostic Test Radiology reviewed: Image reviewed, Reports reviewed Procedures - Immobilization Right Shoulder Pre-Proc Neuro Vasc Exam: Normal Immobilizer type: Shoulder immobilizer, Sling Performed by: RN Post-Proc Neuro Vasc Exam: Normal Alignment checked and good: Yes Discharge - Discharge Clinical Impression: Sprain of shoulder, right Qualifiers: Encounter type: initial encounter Shoulder sprain type: unspecified sprain Qualified Code(s): S43.401A - Unspecified sprain of right shoulder joint, initial encounter Condition: Stable Disposition: HOME, SELF-CARE Instructions: Shoulder Injury ([facility]), Temporary Sling ([facility]) Additional Instructions: Return immediately for any new or worsening symptoms Followup with your primary care provider, call tomorrow to make a followup appointment Follow-up with orthopedics for further evaluation of shoulder joint pain, call tomorrow for an appointment Wear sling while awake only for the next 3 to 4 days and then remove. Perform gentle range of motion exercises to the joint daily. Referrals: RUSSELL BENITEZ SUPERANNUATION CLERK, SUPERANNUATION CLERK [NURSE PRACTITIONER] - Follow up as needed [facility] [Provider Group] - Follow up as needed
--- NOTE | 2019-12-12 16:04 | RADIOLOGY REPORT (SQ) ---
EXAM DESCRIPTION: SHOULDER RIGHT 2 OR MORE VIEWS IMAGES COMPLETED DATE/TIME: 12/12/2019 2:41 pm REASON FOR STUDY: r shoulder injury COMPARISON: 12/11/2013 NUMBER OF VIEWS: Three views. TECHNIQUE: Internal rotation, external rotation, and Y view images acquired of the right shoulder. LIMITATIONS: None. FINDINGS: MINERALIZATION: Normal. BONES: No acute fracture. No worrisome bone lesions. JOINTS: No dislocation. VISUALIZED LUNGS AND RIBS: No pneumothorax. No rib fracture. SOFT TISSUES: No radiopaque foreign body. OTHER: No other significant finding. IMPRESSION: NEGATIVE STUDY OF THE RIGHT SHOULDER. NO RADIOGRAPHIC EVIDENCE OF ACUTE INJURY. TECHNICAL DOCUMENTATION: JOB ID: [id number] [employer]- All Rights Reserved Reading location - IP/workstation name: [email or web address]
== END 2019-12-12 16:00 | disposition home or self-care (01) ==
LOC: ER 13:47
DX: S43.401A Unspecified sprain of right shoulder joint, initial encounter (principal); X50.9XXA Other and unspecified overexertion or strenuous movements or postures, initial encounter; I10 Essential (primary) hypertension; J44.9 Chronic obstructive pulmonary disease, unspecified
CPT/HCPCS: 99283

== ENCOUNTER 2020-02-12 11:36 | Inpatient (IN) | payer MEDICARE, MEDICAID ==
[2020-02-12 12:06] LABS: ABSOLUTE LYMPHOCYTES (AUTO) 1.1 10^3/uL (0.5-4.7); ABSOLUTE MONOCYTES (AUTO) 0.7 10^3/uL (0.1-1.4); ABSOLUTE NEUT (AUTO) 4.3 10^3/uL (1.7-8.2); BASOPHILS % (AUTO) 0.4 % (0-2); EOSINOPHILS % (AUTO) 0.3 % (0-6); HEMATOCRIT 35.3 % (37.9-51.0); HEMOGLOBIN 11.7 g/dL (13.5-17.0); LYMPHOCYTES % (AUTO) 18.3 % (13-45); MEAN CORPUSCULAR HEMOGLOBIN 29.6 pg (27.0-33.4); MEAN CORPUSCULAR HGB CONC 33.3 g/dL (32.0-36.0); MEAN CORPUSCULAR VOLUME 89 fl (80-97); MONOCYTES % (AUTO) 11.7 % (3-13); PLATELET COUNT 203 10^3/uL (150-450); RED BLOOD COUNT 3.97 10^6/uL (4.35-5.55); SEGMENTED NEUTROPHILS % (AUTO) 69.3 % (42-78); TOTAL CELLS COUNTED % (AUTO) 100 %; WHITE BLOOD COUNT 6.2 10^3/uL (4.0-10.5)
[2020-02-12] MEDS ORDERED: FUROSEMIDE INJ/PF 20 MG/2 ML SDV IV ONE (12:16)
[2020-02-12 12:30] LABS: ALKALINE PHOSPHATASE 72 U/L (38-126); ANION GAP 7 (5-19); ASPARTATE AMINO TRANSFERASE 39 U/L (17-59); BILIRUBIN,DIRECT 0.3 mg/dL (0.0-0.4); BILIRUBIN,TOTAL 0.7 mg/dL (0.2-1.3); BLOOD UREA NITROGEN 18 mg/dL (7-20); CALCIUM 8.5 mg/dL (8.4-10.2); CARBON DIOXIDE 38 mmol/L (22-30); CHLORIDE 95 mmol/L (98-107); GLUCOSE 121 mg/dL (75-110); POTASSIUM 4.2 mmol/L (3.6-5.0); TOTAL PROTEIN 6.4 g/dL (6.3-8.2)
[2020-02-12 12:46] LABS: TROPONIN I 0.018 ng/mL
--- NOTE | 2020-02-12 12:49 | RADIOLOGY REPORT (SQ) ---
EXAM DESCRIPTION: CHEST SINGLE VIEW IMAGES COMPLETED DATE/TIME: 02/12/2020 12:39 pm REASON FOR STUDY: Dyspnea COMPARISON: 12/06/2016. EXAM PARAMETERS: NUMBER OF VIEWS: One view. TECHNIQUE: Single frontal radiographic view of the chest acquired. RADIATION DOSE: NA LIMITATIONS: None. FINDINGS: LUNGS AND PLEURA: Patchy bilateral airspace disease. Possible small pleural effusions. MEDIASTINUM AND HILAR STRUCTURES: No masses. Contour normal. HEART AND VASCULAR STRUCTURES: Heart normal in size. Normal vasculature. BONES: No acute findings. HARDWARE: None in the chest. OTHER: No other significant finding. IMPRESSION: PATCHY BILATERAL AIRSPACE DISEASE CONCERNING FOR PNEUMONIA. TECHNICAL DOCUMENTATION: JOB ID: [id number] 2010 [employer]- All Rights Reserved Reading location - IP/workstation name: [email or web address]
[2020-02-12 13:17] LABS: APPEARANCE,URINE SLIGHTLY-CLOUDY; BILIRUBIN,URINE NEGATIVE (NEGATIVE); COLOR,URINE YELLOW; GLUCOSE, URINE NEGATIVE (NEGATIVE); KETONES,URINE NEGATIVE (NEGATIVE); LEUKOCYTE ESTERASE,URINE NEGATIVE (NEGATIVE); NITRITE,URINE NEGATIVE (NEGATIVE); PROTEIN,URINE 30 mg/dL (NEGATIVE); URINE SPECIFIC GRAVITY 1.017; UROBILINOGEN,URINE NEGATIVE mg/dL (<2.0)
[2020-02-12] MEDS ORDERED: DEXTROSE 50%-WATER 25 GM/50 ML DISP.SYRIN IV PRN ×2 (14:38)
[2020-02-12] MEDS ORDERED: GLUCAGON,HUMAN RECOMB 1 MG INJ IM PRN (14:38)
[2020-02-12] MEDS ORDERED: ACETAMINOPHEN 325 MG TABLET PO PRN (14:38)
[2020-02-12] MEDS ORDERED: ONDANSETRON HCL INJ/PF 4 MG/2 ML SDV IV PRN (14:38)
[2020-02-12] MEDS ORDERED: DEXTROSE 40% GEL 15 GM TUBE PO PRN ×2 (14:38)
--- NOTE | 2020-02-12 15:03 | PDOC H&P ---
History of Present Illness History of Present Illness: SUJATA GONSALEZ is a 69 year old male with a history of morbid obesity, COPD, chronic hypoxemic respiratory failure, [id number] diabetes mellitus, hypertension, hyperlipidemia, obstructive sleep apnea, chronic diastolic heart failure, and chronic venous insufficiency who presents with dyspnea. He had not been feeling well for well over a week before he started to get short of breath 4 days ago. He said prior to Tuesday, he experienced approximately 1 week of fatigue and malaise, and had lost his sense of taste and smell, and therefore his appetite was very poor. He said on Tuesday of last week, about 4 days ago, he began to experience worsening shortness of breath. He said he first noticed that when he would get up to ambulate short distances, and it has progressed to where he is short of breath at rest. He has a very long oxygen tube connected to his concentrator, and may not have been getting the level of oxygen that he thought he was. He called EMS because he could not breathe. His saturations on room air were 79%. They put him on 3 L of oxygen per nasal cannula on a short tube and he seemed to be doing better on that during transport. On 3 L in the ER his saturations are around 90%. He has crackles on examination and bilateral patchy opacities on chest x-ray. His lower extremities are swollen, but are chronically swollen, and his BNP was only 156. He said he has not been running a fever. He said he had some diarrhea last week. He has not received any sort of outpatient treatment for this. His doctor is at [facility] [place] but he does not know his doctor's name. Past Medical History Cardiac Medical History: Reports: Congestive Heart Failure, Hyperlipidema, Hypertension - MEDICATED, Peripheral Vascular Disease Denies: Atrial Fibrillation, Coronary Artery Disease, Myocardial Infarction, Pulmonary Embolism, Heart Murmur Pulmonary Medical History: Reports: Chronic Obstructive Pulmonary Disease (COPD), Pneumonia, Respiratory Failure - On home oxygen, Sleep Apnea Denies: Asthma, Bronchitis, Tuberculosis Neurological Medical History: Denies: Seizures Malignancy Medical History: Denies: Lung Cancer GI Medical History: Reports: Gastroesophageal Reflux Disease Denies: Crohn's Disease, Hepatitis, Hiatal Hernia Musculoskeltal Medical History: Reports: Arthritis Denies: Fibromyalgia Psychiatric Medical History: Reports: Depression Denies: Bipolar Disorder, Dementia, Post Traumatic Stress Disorder Hematology: Denies: Anemia, Sickle Cell Disease Past Surgical History Past Surgical History: Denies: Colostomy, Pacemaker Social History Smoking Status: Unknown if Ever Smoked Frequency of Alcohol Use: None Hx Recreational Drug Use: Yes Drugs: None Hx Prescription Drug Abuse: No Family History Family History: CAD, COPD, DM, Hypertension Parental Family History Reviewed: Yes - Unknown Children Family History Reviewed: Yes Sibling(s) Family History Reviewed.: Yes Medication/Allergy Home Medications: Carvedilol [Coreg 3.125 mg Tablet] 3.125 mg PO Q12 tablet 09/11/15 Famotidine [Pepcid 20 mg Tablet] 20 mg PO Q12 tablet 09/11/15 Ipratropium/Albuterol Sulfate [Combivent Respimat 4 gm Mdi] 1 puff IH Q6 aer.w.adap 09/11/15 Potassium Chloride [Klor-Con 10 Meq Tablet ER] 40 meq PO [id number] tablet.sa 09/11/15 Atorvastatin Calcium [Lipitor 40 mg Tablet] 40 mg PO DAILY 04/27/16 Furosemide [Lasix] 20 mg PO DAILY 04/27/16 Isosorbide Dinitrate 30 mg PO DAILY 04/27/16 Sertraline HCl 50 mg PO DAILY 04/27/16 Aspirin [Aspirin 81 mg Chewable Tablet] 81 mg PO DAILY tab.chew 04/29/16 Glycopyrrolate/Formoterol Fum [Bevespi Aerosphere Inhaler] 1 puff IH BID 07/27/16 Triamcinolone Aceton/Silicones [Dermazone 0.1% Kit] 1 each TP BID 07/27/16 Nitroglycerin 0.4 mg SL .Q1MOS AGO 06/01/17 Besifloxacin HCl [Besivance Drops] 1 drop OP ASDIR 06/07/17 Difluprednate [Durezol] 1 drop OP ASDIR 06/07/17 Nepafenac [Ilevro] 1 drop OP ASDIR 06/07/17 Cephalexin Monohydrate [Keflex 500 mg Capsule] 500 mg PO Q6H 7 Days #28 capsule 07/26/18 Nystatin [Mycostatin Cream 15 gm] 1 applic TP BID #15 gm 07/26/18 Allergies/Adverse Reactions: Penicillins Allergy (Unknown, Verified 12/12/19 16:12) Review of Systems All systems: reviewed and no additional remarkable complaints except as stated - All systems were reviewed and were negative except as noted in the HPI Physical Exam Vital Signs: Temp Pulse Resp BP Pulse Ox 98.3 F 153/66 H 89 L 02/12/20 12:26 02/12/20 13:01 02/12/20 13:01 General appearance: PRESENT: no acute distress, cooperative, disheveled, morbidly obese Head exam: PRESENT: atraumatic, normocephalic Eye exam: PRESENT: EOMI, PERRLA. ABSENT: conjunctival injection, nystagmus, scleral icterus Ear exam: PRESENT: normal external ear exam Mouth exam: PRESENT: dry mucosa, neck supple Teeth exam: PRESENT: poor dentation Throat exam: ABSENT: post pharyngeal erythema Neck exam: PRESENT: full ROM. ABSENT: carotid bruit, JVD, lymphadenopathy, meningismus, tenderness, thyromegaly Respiratory exam: PRESENT: crackles - Bilateral, symmetrical, tachypnea, unlabored. ABSENT: accessory muscle use, chest wall tenderness, prolonged expiratory phas, rhonchi, wheezes Cardiovascular exam: PRESENT: RRR, +S1, +S2 Pulses: PRESENT: normal carotid pulses Vascular exam: PRESENT: normal capillary refill GI/Abdominal exam: PRESENT: normal bowel sounds, soft, other - Pendulous abdominal pannus. ABSENT: distended, guarding, rebound, tenderness Extremities exam: PRESENT: pedal edema, +2 edema - Chronic. ABSENT: clubbing Musculoskeletal exam: PRESENT: normal inspection. ABSENT: deformity Neurological exam: PRESENT: alert, awake, oriented to person, oriented to place, oriented to time, oriented to situation, CN II-XII grossly intact. ABSENT: motor sensory deficit Psychiatric exam: PRESENT: appropriate affect, normal mood Skin exam: PRESENT: dry, warm, other - Bilateral lower extremity profound hemosiderin deposition Results Laboratory Results: 02/12/20 11:52 02/12/20 11:52 02/12/20 02/12/20 02/12/20 11:52 11:52 12:55 WBC 6.2 RBC 3.97 L Hgb 11.7 L Hct 35.3 L MCV 89 MCH 29.6 MCHC 33.3 RDW 15.0 H Plt Count 203 Seg Neutrophils % 69.3 Sodium 139.7 Potassium 4.2 Chloride 95 L Carbon Dioxide 38 H Anion Gap 7 BUN 18 Creatinine 0.62 Est GFR ( Amer) > 60 Glucose 121 H Calcium 8.5 Total Bilirubin 0.7 AST 39 Alkaline Phosphatase 72 Total Protein 6.4 Albumin 3.0 L Urine Color YELLOW Urine Appearance SLIGHTLY-CLOUDY Urine pH 5.0 Ur Specific [place] 1.017 Urine Protein 30 H Urine Glucose (UA) NEGATIVE Urine Ketones NEGATIVE Urine Blood NEGATIVE Urine Nitrite NEGATIVE Ur Leukocyte Esterase NEGATIVE Urine WBC (Auto) 2 Urine RBC (Auto) 1 02/12/20 11:52 Troponin I 0.018 NT-Pro-B Natriuret Pep 156 H Impressions: Chest X-Ray 02/12/20 12:15 IMPRESSION: PATCHY BILATERAL AIRSPACE DISEASE CONCERNING FOR PNEUMONIA. Assessment and Plan - Diagnosis (1) Acute and chronic respiratory failure with hypoxia Is this a current diagnosis for this admission?: Yes (2) Pneumonia due to COVID-19 virus Is this a current diagnosis for this admission?: Yes (3) Non-insulin dependent type 2 diabetes mellitus Is this a current diagnosis for this admission?: Yes (4) COPD (chronic obstructive pulmonary disease) Qualifiers: COPD type: chronic bronchitis Chronic bronchitis type: mixed simple and mucopurulent Qualified Code(s): J41.8 - Mixed simple and mucopurulent chronic bronchitis Is this a current diagnosis for this admission?: Yes (5) Hyperlipidemia Qualifiers: Hyperlipidemia type: unspecified Qualified Code(s): E78.5 - Hyperlipidemia, unspecified Is this a current diagnosis for this admission?: Yes (6) Hypertension Qualifiers: Hypertension type: essential hypertension Qualified Code(s): I10 - Essential (primary) hypertension Is this a current diagnosis for this admission?: Yes (7) Obstructive sleep apnea Is this a current diagnosis for this admission?: Yes (8) Diastolic CHF Qualifiers: Qualified Code(s): I50.30 - Unspecified diastolic (congestive) heart failure Is this a current diagnosis for this admission?: Yes Plan: Chronic diastolic CHF (9) Morbid obesity with BMI of 45.0-49.9, adult Is this a current diagnosis for this admission?: Yes - Plan Summary Summary: He is beyond the timeframe during which remdesivir would be appropriate or helpful. We will start him on the MATH+ protocol, which includes Solu-Medrol, ivermectin, IV doxycycline, vitamin B, vitamin C, vitamin D3, zinc, and melatonin. We will start him on DVT prophylaxis. A D-dimer is pending and if it is greater than 1 we will change him to therapeutic anticoagulation. We will follow the trend in his markers of inflammation. Supplemental O2 to maintain SPO2 greater than 92%. We will use his home CPAP nightly. We will continue his home medications for his comorbid conditions. We anticipate that his blood sugars will become elevated, so we will cover him with sliding scale insulin. - Time Time Spent with patient: 35 or more minutes Anticipated Discharge Disposition: Unknown Anticipated Discharge Timeframe: Unknown - Inpatient Certification Based on my medical assessment, after consideration of the patient's comorbi dities, presenting symptoms, or acuity I expect that the services needed warrant INPATIENT care.: Yes I certify that my determination is in accordance with my understanding of Medicare's requirements for reasonable and necessary INPATIENT services [42 CFR 412.3e].: Yes Medical Necessity: Significant Comorbidiites Make Outpatient Treatment Too Risky, Need Close Monitoring Due to Risk of Patient Decompensation, Need For Continuous Telemetry Monitoring, Need for IV Antibiotics, Risk of Complication if Not Cared For in Hospital
[2020-02-12 15:48] LABS: C-REACTIVE PROTEIN 299.2 mg/L (<10.0)
--- NOTE | 2020-02-12 16:26 | ER Document Report ---
ED General - General Chief Complaint: Shortness Of Breath Stated Complaint: DIFFICULTY BREATHING Time Seen by Provider: 02/12/20 12:14 Mode of Arrival: Medic Information source: Patient, Emergency Med Personnel TRAVEL OUTSIDE OF THE [place] IN LAST 30 DAYS: No - HPI Notes: This patient is a 69-year-old male with a known history of COPD and CHF who presents via ambulance with progressively worsening shortness of breath and cough going on for about the last 3 days. He denies any exposure to illness. He denies any fever or chills. His breathing is become progressively worse over the past several days and so he finally decided to seek care. His sputum production has not increased. He denies any other recent illnesses. - Related Data Allergies/Adverse Reactions: Penicillins Allergy (Unknown, Verified 12/12/19 16:12) Past Medical History - General Information source: Patient, H Records - Social History Smoking Status: Unknown if Ever Smoked Family History: CAD, COPD, DM, Hypertension Patient has homicidal ideation: No - Medical History Medical History: Other Notes: Past medical history as documented in the E HR is reviewed. - Past Medical History Cardiac Medical History: Reports: Hx Congestive Heart Failure, Hx Hypercholesterolemia, Hx Hypertension - MEDICATED, Hx Peripheral Vascular Disease Denies: Hx Atrial Fibrillation, Hx Coronary Artery Disease, Hx Heart Attack, Hx Pulmonary Embolism, Hx Heart Murmur Pulmonary Medical History: Reports: Hx COPD, Hx Pneumonia, Hx Respiratory Failure - On home oxygen, Hx Sleep Apnea Denies: Hx Asthma, Hx Bronchitis, Hx Tuberculosis Neurological Medical History: Denies: Hx Cerebrovascular Accident, Hx Seizures, Hx Parkinson's Disease Renal/ Medical History: Denies: Hx Peritoneal Dialysis Malignancy Medical History: Denies Hx Lung Cancer GI Medical History: Reports: Hx Gastroesophageal Reflux Disease, Hx Ulcer - YRS AGO. Denies: Hx Crohn's Disease, Hx Hepatitis, Hx Hiatal Hernia, Hx Irritable Bowel, Hx Liver Failure, Hx Pancreatitis Musculoskeletal Medical History: Reports Hx Arthritis, Denies Hx Fibromyalgia, Denies Hx Multiple Sclerosis, Denies Hx Muscular Dystrophy Psychiatric Medical History: Reports: Hx Depression Denies: Hx Bipolar Disorder, Hx Dementia, Hx Post Traumatic Stress Disorder, Hx Schizophrenia Traumatic Medical History: Denies: Hx Fractures Infectious Medical History: Denies: Hx Hepatitis Past Surgical History: Denies: Hx Colostomy, Hx Open Heart Surgery, Hx Pacemaker - Immunizations Hx Diphtheria, Pertussis, Tetanus Vaccination: No Hx Pneumococcal Vaccination: 04/28/11 Review of Systems - Review of Systems Notes: All other systems were reviewed and are negative or noncontributory except as noted the present illness. Physical Exam - Vital signs Vitals: Pulse Ox 86 L 02/12/20 11:39 - Notes Notes: General: This is an obese chronically ill-appearing male in mild respiratory distress. Vital signs and nursing documentation are reviewed. HEENT: Grossly normal to inspection. Neck: Supple, trachea midline, no adenopathy. Chest: Increased AP diameter. Fair air entry bilaterally with mild diffuse wheezing. No rhonchi rales heard. Heart: Regular rate and rhythm no murmur rub or gallop. Abdomen: Obese, soft, tender. Extremities: Patient has fixed 2+ edema to the knees. No clubbing or cyanosis. Skin: Warm, dry, hyperpigmentation and venous stasis changes in lower extremities. Neuro: Patient is alert and oriented x3. No focal motor or sensory deficits are noted. Course - Re-evaluation Re-evalutation: 02/12/20 16:24 Patient was initially kept on oxygen by nasal cannula. He did fairly well with this. Nursing staff thought BiPAP might be necessary but the patient is clearly not hypercapnic to the point of requiring BiPAP at this time. His chest x-ray showed bilateral patchy pneumonia infiltrates highly suggestive of COVID-19. Subsequently his rapid Covid swab came back positive. Interestingly, his rapid Covid antigen done in the field was negative. Once his labs were back I contacted the hospitalist service and Dr. Gottlieb came down to evaluate admit the patient. - Vital Signs Vital signs: Temp Pulse Resp BP Pulse Ox 98.3 F 167/82 H 91 L 02/12/20 12:26 02/12/20 15:00 02/12/20 15:01 - Laboratory Results Result Diagrams: 02/12/20 11:52 02/12/20 11:52 Laboratory Results Interpreted: 02/12/20 02/12/20 02/12/20 11:52 11:52 11:52 RBC 3.97 L Hgb 11.7 L Hct 35.3 L RDW 15.0 H D-Dimer Chloride 95 L Carbon Dioxide 38 H Glucose 121 H C-Reactive Protein NT-Pro-B Natriuret Pep 156 H Albumin 3.0 L Urine Protein SARS-CoV-2 (PCR) 02/12/20 02/12/20 02/12/20 11:52 11:52 11:52 RBC Hgb Hct RDW D-Dimer 1.40 H Chloride Carbon Dioxide Glucose C-Reactive Protein 299.2 H NT-Pro-B Natriuret Pep Albumin Urine Protein SARS-CoV-2 (PCR) DETECTED H 02/12/20 12:55 RBC Hgb Hct RDW D-Dimer Chloride Carbon Dioxide Glucose C-Reactive Protein NT-Pro-B Natriuret Pep Albumin Urine Protein 30 H SARS-CoV-2 (PCR) Critical Laboratory Results Reviewed: No Critical Results - Radiology Results Radiology Results Interpreted: 02/12/20 16:26 Chest X-Ray 02/12/20 12:15 IMPRESSION: PATCHY BILATERAL AIRSPACE DISEASE CONCERNING FOR PNEUMONIA. Critical Radiology Results Reviewed: No Critical Results - EKG Interpretation by Id EKG shows normal: Sinus rhythm Rate: Normal [place]/QRS: Left axis deviation Discharge - Discharge Clinical Impression: Pneumonia due to COVID-19 virus Condition: Fair Disposition: ADMITTED INPATIENT Admitting Provider: Chery (Hospitalist) Unit Admitted: [facility]
[2020-02-12] MEDS: INSULIN LISPRO 100 UNIT/ML 3 ML VIAL SUBCUT SCH ×2 (17:38→23:11)
[2020-02-12] MEDS: CHOLECALCIFEROL (D3) 1,000 UNIT (25 MCG) TABLET PO SCH (17:39)
[2020-02-12] MEDS: ASCORBIC ACID 500 MG TABLET PO SCH ×2 (17:40→23:10)
[2020-02-12] MEDS ORDERED: IVERMECTIN 3 MG TABLET PO ONE (18:00)
[2020-02-12] MEDS: METHYLPREDNISOLONE INJ 40 MG/1 ML SDV IV SCH (23:11)
[2020-02-12] MEDS: MELATONIN 5 MG TABLET PO SCH (23:11)
[2020-02-12] MEDS: DOXYCYCLINE HYCLATE 100 MG in DEXTROSE 5%-WATER 250 ML IV SCH (23:13)
--- NOTE | 2020-02-13 00:43 | EKG REPORT ---
SEVERITY:- OTHERWISE NORMAL ECG - SINUS RHYTHM LEFT AXIS DEVIATION : Confirmed by: Jacquelin Garvin 13-Feb-2020 00:42:13
[2020-02-13] MEDS: DOXYCYCLINE HYCLATE 100 MG in DEXTROSE 5%-WATER 250 ML IV SCH ×2 (06:22→18:19)
[2020-02-13] MEDS: ASCORBIC ACID 500 MG TABLET PO SCH ×3 (06:23→18:18)
[2020-02-13 06:53] LABS: ABSOLUTE LYMPHOCYTES (AUTO) 0.4 10^3/uL (0.5-4.7); ABSOLUTE MONOCYTES (AUTO) 0.4 10^3/uL (0.1-1.4); ABSOLUTE NEUT (AUTO) 3.2 10^3/uL (1.7-8.2); BASOPHILS % (AUTO) 0.1 % (0-2); HEMATOCRIT 34.4 % (37.9-51.0); HEMOGLOBIN 11.5 g/dL (13.5-17.0); LYMPHOCYTES % (AUTO) 10.8 % (13-45); MEAN CORPUSCULAR HEMOGLOBIN 29.7 pg (27.0-33.4); MEAN CORPUSCULAR HGB CONC 33.5 g/dL (32.0-36.0); MEAN CORPUSCULAR VOLUME 89 fl (80-97); MONOCYTES % (AUTO) 9.2 % (3-13); PLATELET COUNT 200 10^3/uL (150-450); RED BLOOD COUNT 3.88 10^6/uL (4.35-5.55); RED CELL DISTRIBUTION WIDTH 14.3 % (11.5-14.0); SEGMENTED NEUTROPHILS % (AUTO) 79.9 % (42-78); TOTAL CELLS COUNTED % (AUTO) 100 %; WHITE BLOOD COUNT 4.1 10^3/uL (4.0-10.5)
[2020-02-13 07:23] LABS: ALBUMIN 2.9 g/dL (3.5-5.0); ALKALINE PHOSPHATASE 76 U/L (38-126); ASPARTATE AMINO TRANSFERASE 42 U/L (17-59); BILIRUBIN,DIRECT 0.4 mg/dL (0.0-0.4); BILIRUBIN,TOTAL 0.6 mg/dL (0.2-1.3); BLOOD UREA NITROGEN 24 mg/dL (7-20); CALCIUM 8.7 mg/dL (8.4-10.2); CHLORIDE 95 mmol/L (98-107); GLUCOSE 219 mg/dL (75-110); POTASSIUM 4.3 mmol/L (3.6-5.0); TOTAL PROTEIN 6.3 g/dL (6.3-8.2)
[2020-02-13 07:28] LABS: ANION GAP 5 (5-19); CARBON DIOXIDE 39 mmol/L (22-30)
[2020-02-13 07:40] LABS: C-REACTIVE PROTEIN 226.7 mg/L (<10.0)
[2020-02-13] MEDS: INSULIN LISPRO 100 UNIT/ML 3 ML VIAL SUBCUT SCH ×3 (08:38→18:19)
[2020-02-13] MEDS ORDERED: ISOSORBIDE DINITRATE 10 MG TABLET PO SCH (10:00)
[2020-02-13] MEDS ORDERED: FLUOXETINE HCL 10 MG PO SCH (10:00)
[2020-02-13] MEDS: ATORVASTATIN CALCIUM 40 MG TABLET PO SCH (10:08)
[2020-02-13] MEDS: FAMOTIDINE 20 MG TABLET PO SCH ×2 (10:08→18:18)
[2020-02-13] MEDS: METFORMIN HCL 500 MG TABLET PO SCH ×2 (10:08→18:18)
[2020-02-13] MEDS: CHOLECALCIFEROL (D3) 1,000 UNIT (25 MCG) TABLET PO SCH (10:08)
[2020-02-13] MEDS: VITAMIN B COMPLEX TABLET PO SCH ×2 (10:08→10:13)
[2020-02-13] MEDS: POTASSIUM CHLORIDE 10 MEQ TABLET.ER PO SCH (10:09)
[2020-02-13] MEDS: METHYLPREDNISOLONE INJ 40 MG/1 ML SDV IV SCH (10:09)
[2020-02-13] MEDS: ENOXAPARIN SODIUM INJ 40 MG/0.4 ML DISP.SYRIN SUBCUT SCH (10:09)
[2020-02-13] MEDS: ZINC SULFATE 220 MG CAPSULE PO SCH (10:12)
[2020-02-13] MEDS: FUROSEMIDE 20 MG TABLET PO SCH (12:13)
[2020-02-13] MEDS ORDERED: BISACODYL 10 MG SUPP.RECT PR ONE (14:00)
--- NOTE | 2020-02-13 17:35 | PDOC PROGRESS REPORT ---
Subjective Date:: 02/13/20 Subjective:: No adverse events overnight. His chief complaint today is that he has not had a bowel movement in several days. He is on 5 L per nasal cannula, which is pretty good considering that he is on 3 L at home. He said his breathing feels better. No fevers. Reason For Visit: DIFFICULTY BREATHING Physical Exam Vital Signs: Temp Pulse Resp BP Pulse Ox 98.2 F 78 20 142/51 H 92 02/13/20 15:41 02/13/20 15:41 02/13/20 15:41 02/13/20 15:41 02/13/20 15:41 Intake & Output 02/12/20 02/13/20 02/14/20 06:59 06:59 06:59 Intake Total 410 Output Total 560 Balance -150 Weight 168.7 kg 168.7 kg General appearance: PRESENT: no acute distress, cooperative, disheveled, morbidly obese Respiratory exam: PRESENT: crackles - Bilateral, symmetrical, tachypnea, unlabored. ABSENT: accessory muscle use, chest wall tenderness, prolonged expiratory phas, rhonchi, wheezes Cardiovascular exam: PRESENT: RRR, +S1, +S2 Pulses: PRESENT: normal carotid pulses Vascular exam: PRESENT: normal capillary refill GI/Abdominal exam: PRESENT: normal bowel sounds, soft, other - Pendulous abdominal pannus. ABSENT: distended, guarding, rebound, tenderness Extremities exam: PRESENT: pedal edema, +2 edema - Chronic. ABSENT: clubbing Musculoskeletal exam: PRESENT: normal inspection. ABSENT: deformity Neurological exam: PRESENT: alert, awake, oriented to person, oriented to place, oriented to time, oriented to situation Psychiatric exam: PRESENT: appropriate affect, normal mood Skin exam: PRESENT: dry, warm, other - Bilateral lower extremity profound hemosiderin deposition Results Laboratory Results: 02/13/20 06:24 02/13/20 06:24 02/13/20 02/13/20 06:24 06:24 WBC 4.1 RBC 3.88 L Hgb 11.5 L Hct 34.4 L MCV 89 MCH 29.7 MCHC 33.5 RDW 14.3 H Plt Count 200 Seg Neutrophils % 79.9 H Sodium 138.9 Potassium 4.3 Chloride 95 L Carbon Dioxide 39 H Anion Gap 5 BUN 24 H Creatinine 0.74 Est GFR ( Amer) > 60 Glucose 219 H Calcium 8.7 Magnesium 2.1 Ferritin 434.00 Total Bilirubin 0.6 AST 42 Alkaline Phosphatase 76 C-Reactive Protein 226.7 H Total Protein 6.3 Albumin 2.9 L 02/12/20 11:52 Troponin I 0.018 NT-Pro-B Natriuret Pep 156 H Impressions: Chest X-Ray 02/12/20 12:15 IMPRESSION: PATCHY BILATERAL AIRSPACE DISEASE CONCERNING FOR PNEUMONIA. Assessment and Plan - Diagnosis (1) Acute and chronic respiratory failure with hypoxia Is this a current diagnosis for this admission?: Yes (2) Pneumonia due to COVID-19 virus Is this a current diagnosis for this admission?: Yes (3) Non-insulin dependent type 2 diabetes mellitus Is this a current diagnosis for this admission?: Yes (4) COPD (chronic obstructive pulmonary disease) Qualifiers: COPD type: chronic bronchitis Chronic bronchitis type: mixed simple and mucopurulent Qualified Code(s): J41.8 - Mixed simple and mucopurulent chronic bronchitis Is this a current diagnosis for this admission?: Yes (5) Hyperlipidemia Qualifiers: Hyperlipidemia type: unspecified Qualified Code(s): E78.5 - Hyperlipidemia, unspecified Is this a current diagnosis for this admission?: Yes (6) Hypertension Qualifiers: Hypertension type: essential hypertension Qualified Code(s): I10 - Essential (primary) hypertension Is this a current diagnosis for this admission?: Yes (7) Obstructive sleep apnea Is this a current diagnosis for this admission?: Yes (8) Diastolic CHF Is this a current diagnosis for this admission?: Yes (9) Morbid obesity with BMI of 45.0-49.9, adult Is this a current diagnosis for this admission?: Yes - Plan Summary Summary: Continue the MATH+ protocol, he is showing signs of a response. His breathing overall looks very comfortable. His saturations on 5 L are in the low 90s. We will give him a suppository for his constipation. His CRP and his D-dimer are trending down. He gets his second dose of ivermectin tomorrow. Continue IV steroids. Continue sliding scale for elevated blood sugars in the setting of IV steroid therapy. - Time Time Spent with patient: 15-24 minutes Anticipated Discharge Disposition: Unknown Anticipated Discharge Timeframe: Unknown
--- NOTE | 2020-02-13 23:38 | EKG REPORT ---
SEVERITY:- BORDERLINE ECG - SINUS RHYTHM ATRIAL PREMATURE COMPLEX BORDERLINE IVCD WITH LAD : Confirmed by: Jacquelin Garvin 13-Feb-2020 23:37:55
[2020-02-14] MEDS: METHYLPREDNISOLONE INJ 40 MG/1 ML SDV IV SCH ×3 (01:41→22:26)
[2020-02-14] MEDS: MELATONIN 5 MG TABLET PO SCH ×2 (01:41→22:24)
[2020-02-14] MEDS: ASCORBIC ACID 500 MG TABLET PO SCH ×6 (01:42→23:36)
[2020-02-14] MEDS: INSULIN LISPRO 100 UNIT/ML 3 ML VIAL SUBCUT SCH ×5 (01:49→22:26)
[2020-02-14] MEDS: DOXYCYCLINE HYCLATE 100 MG in DEXTROSE 5%-WATER 250 ML IV SCH ×2 (06:08→18:57)
[2020-02-14] MEDS: ISOSORBIDE MONONITRATE 30 MG TAB.ER.24H PO SCH (08:00)
[2020-02-14] MEDS: TAMSULOSIN HCL 0.4 MG CAP.SR.24H PO SCH (08:00)
[2020-02-14] MEDS ORDERED: ISOSORBIDE DINITRATE 30 MG PO SCH (08:00)
[2020-02-14 08:05] LABS: ABSOLUTE LYMPHOCYTES (AUTO) 0.6 10^3/uL (0.5-4.7); ABSOLUTE MONOCYTES (AUTO) 0.5 10^3/uL (0.1-1.4); ABSOLUTE NEUT (AUTO) 6.3 10^3/uL (1.7-8.2); BASOPHILS % (AUTO) 0.2 % (0-2); HEMATOCRIT 36.2 % (37.9-51.0); LYMPHOCYTES % (AUTO) 8.5 % (13-45); MEAN CORPUSCULAR HEMOGLOBIN 29.4 pg (27.0-33.4); MEAN CORPUSCULAR HGB CONC 33.1 g/dL (32.0-36.0); MEAN CORPUSCULAR VOLUME 89 fl (80-97); MONOCYTES % (AUTO) 7.4 % (3-13); PLATELET COUNT 259 10^3/uL (150-450); RED BLOOD COUNT 4.06 10^6/uL (4.35-5.55); RED CELL DISTRIBUTION WIDTH 15.2 % (11.5-14.0); SEGMENTED NEUTROPHILS % (AUTO) 83.9 % (42-78); TOTAL CELLS COUNTED % (AUTO) 100 %; WHITE BLOOD COUNT 7.5 10^3/uL (4.0-10.5)
[2020-02-14 08:37] LABS: ALBUMIN 2.8 g/dL (3.5-5.0); ALKALINE PHOSPHATASE 67 U/L (38-126); ASPARTATE AMINO TRANSFERASE 38 U/L (17-59); BILIRUBIN,DIRECT 0.3 mg/dL (0.0-0.4); BILIRUBIN,TOTAL 0.4 mg/dL (0.2-1.3); BLOOD UREA NITROGEN 27 mg/dL (7-20); C-REACTIVE PROTEIN 76.9 mg/L (<10.0); CALCIUM 8.8 mg/dL (8.4-10.2); CHLORIDE 95 mmol/L (98-107); GLUCOSE 194 mg/dL (75-110); POTASSIUM 4.6 mmol/L (3.6-5.0); TOTAL PROTEIN 5.8 g/dL (6.3-8.2)
[2020-02-14 08:48] LABS: CARBON DIOXIDE 38 mmol/L (22-30)
[2020-02-14 08:54] LABS: ANION GAP 4 (5-19)
[2020-02-14] MEDS: POTASSIUM CHLORIDE 10 MEQ TABLET.ER PO SCH (09:07)
[2020-02-14] MEDS: CHOLECALCIFEROL (D3) 1,000 UNIT (25 MCG) TABLET PO SCH (09:08)
[2020-02-14] MEDS: ATORVASTATIN CALCIUM 40 MG TABLET PO SCH (09:08)
[2020-02-14] MEDS: FAMOTIDINE 20 MG TABLET PO SCH ×2 (09:08→18:46)
[2020-02-14] MEDS: METFORMIN HCL 500 MG TABLET PO SCH ×2 (09:08→18:45)
[2020-02-14] MEDS: VITAMIN B COMPLEX TABLET PO SCH (09:08)
[2020-02-14] MEDS: FUROSEMIDE 20 MG TABLET PO SCH (09:08)
[2020-02-14] MEDS: ENOXAPARIN SODIUM INJ 40 MG/0.4 ML DISP.SYRIN SUBCUT SCH (09:08)
[2020-02-14] MEDS ORDERED: IVERMECTIN 3 MG TABLET PO ONE (10:00)
--- NOTE | 2020-02-14 15:31 | PDOC PROGRESS REPORT ---
Subjective Date:: 02/14/20 Subjective:: No adverse events overnight. No new complaints. We have had to bump him up to 8 L on the nasal cannula. He said he is on 3 L at home, and his machine goes up to 5, and so he frequently turns his machine all the way up at home. He is feeling better and is able to rest comfortably. He said he feels like his breathing has improved at rest. He has not tried to ambulate. Reason For Visit: DIFFICULTY BREATHING Physical Exam Vital Signs: Temp Pulse Resp BP Pulse Ox 98.0 F 70 19 145/62 H 93 02/14/20 11:00 02/14/20 11:00 02/14/20 11:00 02/14/20 11:00 02/14/20 11:00 Intake & Output 02/13/20 02/14/20 02/15/20 06:59 06:59 06:59 Intake Total 410 2160 260 Output Total 560 1550 Balance -150 610 260 Weight 168.7 kg 169.1 kg General appearance: PRESENT: no acute distress, cooperative, disheveled, morbidly obese Respiratory exam: PRESENT: crackles - Bilateral, symmetrical, tachypnea, unlabored. ABSENT: accessory muscle use, chest wall tenderness, prolonged expiratory phas, rhonchi, wheezes Cardiovascular exam: PRESENT: RRR, +S1, +S2 Pulses: PRESENT: normal carotid pulses Vascular exam: PRESENT: normal capillary refill GI/Abdominal exam: PRESENT: normal bowel sounds, soft, other - Pendulous abdominal pannus. ABSENT: distended, guarding, rebound, tenderness Extremities exam: PRESENT: pedal edema, +2 edema - Chronic. ABSENT: clubbing Musculoskeletal exam: PRESENT: normal inspection. ABSENT: deformity Neurological exam: PRESENT: alert, awake, oriented to person, oriented to place, oriented to time, oriented to situation Psychiatric exam: PRESENT: appropriate affect, normal mood Skin exam: PRESENT: dry, warm, other - Bilateral lower extremity profound h emosiderin deposition Results Laboratory Results: 02/14/20 07:40 02/14/20 07:40 02/14/20 02/14/20 07:40 07:40 WBC 7.5 RBC 4.06 L Hgb 12.0 L Hct 36.2 L MCV 89 MCH 29.4 MCHC 33.1 RDW 15.2 H Plt Count 259 Seg Neutrophils % 83.9 H Sodium 137.2 Potassium 4.6 Chloride 95 L Carbon Dioxide 38 H Anion Gap 4 L BUN 27 H Creatinine 0.68 Est GFR ( Amer) > 60 Glucose 194 H Calcium 8.8 Magnesium 2.0 Ferritin 426.00 Total Bilirubin 0.4 AST 38 Alkaline Phosphatase 67 C-Reactive Protein 76.9 H Total Protein 5.8 L Albumin 2.8 L 02/12/20 11:52 Troponin I 0.018 NT-Pro-B Natriuret Pep 156 H Impressions: Chest X-Ray 02/12/20 12:15 IMPRESSION: PATCHY BILATERAL AIRSPACE DISEASE CONCERNING FOR PNEUMONIA. Assessment and Plan - Diagnosis (1) Acute and chronic respiratory failure with hypoxia Is this a current diagnosis for this admission?: Yes (2) Pneumonia due to COVID-19 virus Is this a current diagnosis for this admission?: Yes (3) Non-insulin dependent type 2 diabetes mellitus Is this a current diagnosis for this admission?: Yes (4) COPD (chronic obstructive pulmonary disease) Qualifiers: COPD type: chronic bronchitis Chronic bronchitis type: mixed simple and mucopurulent Qualified Code(s): J41.8 - Mixed simple and mucopurulent chronic bronchitis Is this a current diagnosis for this admission?: Yes (5) Hyperlipidemia Qualifiers: Hyperlipidemia type: unspecified Qualified Code(s): E78.5 - Hyperlipidemia, unspecified Is this a current diagnosis for this admission?: Yes (6) Hypertension Qualifiers: Hypertension type: essential hypertension Qualified Code(s): I10 - Essential (primary) hypertension Is this a current diagnosis for this admission?: Yes (7) Obstructive sleep apnea Is this a current diagnosis for this admission?: Yes (8) Diastolic CHF Is this a current diagnosis for this admission?: Yes (9) Morbid obesity with BMI of 45.0-49.9, adult Is this a current diagnosis for this admission?: Yes - Plan Summary Summary: Continue the MATH+ protocol, he is showing signs of a response. His breathing overall looks very comfortable. His saturations on 8 L are in the low 90s. We will give him a suppository for his constipation. His CRP and his D-dimer are trending down. He gets his second dose of ivermectin today. Continue IV steroids. Continue sliding scale for elevated blood sugars in the setting of IV steroid therapy. If his oxygen requirement continues to increase, will increase his steroids. - Time Time Spent with patient: 15-24 minutes Anticipated Discharge Disposition: Unknown Anticipated Discharge Timeframe: Unknown
[2020-02-15] MEDS: DOXYCYCLINE HYCLATE 100 MG in DEXTROSE 5%-WATER 250 ML IV SCH ×2 (05:37→17:51)
[2020-02-15] MEDS: ASCORBIC ACID 500 MG TABLET PO SCH ×3 (05:38→17:51)
[2020-02-15 07:00] LABS: ABSOLUTE LYMPHOCYTES (AUTO) 0.6 10^3/uL (0.5-4.7); ABSOLUTE MONOCYTES (AUTO) 0.5 10^3/uL (0.1-1.4); ABSOLUTE NEUT (AUTO) 6.5 10^3/uL (1.7-8.2); HEMATOCRIT 35.8 % (37.9-51.0); HEMOGLOBIN 11.8 g/dL (13.5-17.0); LYMPHOCYTES % (AUTO) 8.2 % (13-45); MEAN CORPUSCULAR HEMOGLOBIN 29.5 pg (27.0-33.4); MEAN CORPUSCULAR HGB CONC 33.1 g/dL (32.0-36.0); MEAN CORPUSCULAR VOLUME 89 fl (80-97); MONOCYTES % (AUTO) 6.6 % (3-13); PLATELET COUNT 264 10^3/uL (150-450); RED BLOOD COUNT 4.02 10^6/uL (4.35-5.55); SEGMENTED NEUTROPHILS % (AUTO) 85.2 % (42-78); TOTAL CELLS COUNTED % (AUTO) 100 %; WHITE BLOOD COUNT 7.6 10^3/uL (4.0-10.5)
[2020-02-15 07:19] LABS: ALBUMIN 2.8 g/dL (3.5-5.0); ALKALINE PHOSPHATASE 66 U/L (38-126); ASPARTATE AMINO TRANSFERASE 31 U/L (17-59); BILIRUBIN,DIRECT 0.3 mg/dL (0.0-0.4); BILIRUBIN,TOTAL 0.4 mg/dL (0.2-1.3); BLOOD UREA NITROGEN 24 mg/dL (7-20); C-REACTIVE PROTEIN 54.9 mg/L (<10.0); CALCIUM 8.8 mg/dL (8.4-10.2); CHLORIDE 94 mmol/L (98-107); GLUCOSE 181 mg/dL (75-110); POTASSIUM 4.8 mmol/L (3.6-5.0); TOTAL PROTEIN 5.9 g/dL (6.3-8.2)
[2020-02-15 07:23] LABS: ANION GAP 5 (5-19); CARBON DIOXIDE 38 mmol/L (22-30)
[2020-02-15] MEDS: TAMSULOSIN HCL 0.4 MG CAP.SR.24H PO SCH (07:40)
[2020-02-15] MEDS: INSULIN LISPRO 100 UNIT/ML 3 ML VIAL SUBCUT SCH ×4 (07:40→23:31)
[2020-02-15] MEDS: ISOSORBIDE MONONITRATE 30 MG TAB.ER.24H PO SCH (07:40)
[2020-02-15] MEDS ORDERED: METOPROLOL TARTRATE PF/INJ 5 MG/5 ML SDV IV ONE (09:00)
[2020-02-15] MEDS: POTASSIUM CHLORIDE 10 MEQ TABLET.ER PO SCH (10:26)
[2020-02-15] MEDS: ENOXAPARIN SODIUM INJ 40 MG/0.4 ML DISP.SYRIN SUBCUT SCH (10:26)
[2020-02-15] MEDS: VITAMIN B COMPLEX TABLET PO SCH (10:26)
[2020-02-15] MEDS: METOPROLOL TARTRATE 25 MG TABLET PO SCH ×2 (10:26→23:28)
[2020-02-15] MEDS: FUROSEMIDE 20 MG TABLET PO SCH (10:27)
[2020-02-15] MEDS: METFORMIN HCL 500 MG TABLET PO SCH ×2 (10:27→17:51)
[2020-02-15] MEDS: ATORVASTATIN CALCIUM 40 MG TABLET PO SCH (10:27)
[2020-02-15] MEDS: FAMOTIDINE 20 MG TABLET PO SCH ×2 (10:27→17:51)
[2020-02-15] MEDS: CHOLECALCIFEROL (D3) 1,000 UNIT (25 MCG) TABLET PO SCH (10:27)
[2020-02-15] MEDS: METHYLPREDNISOLONE INJ 40 MG/1 ML SDV IV SCH ×2 (10:28→23:29)
--- NOTE | 2020-02-15 11:55 | PDOC PROGRESS REPORT ---
Subjective Date:: 02/15/20 Subjective:: Patient now exhibits new onset atrial fibrillation rapid ventricular response he required slightly more oxygen last night remains on 7 L/min. He is on 3 L/min at home. He does have obstructive sleep apnea and wears CPAP at night. He reports that he will require a hospital bed in order to elevate the head of the bed to improve breathing and elevate his legs to help with edema. Reason For Visit: DIFFICULTY BREATHING Physical Exam Vital Signs: Temp Pulse Resp BP Pulse Ox 97.9 F 104 H 19 132/96 H 90 L 02/15/20 07:24 02/15/20 10:25 02/15/20 07:24 02/15/20 07:24 02/15/20 07:24 Intake & Output 02/14/20 02/15/20 02/16/20 06:59 06:59 06:59 Intake Total 2160 1810 204 Output Total 1550 2220 Balance 610 -410 204 Weight 169.1 kg 173.1 kg 173.1 kg General appearance: PRESENT: no acute distress, cooperative, morbidly obese Head exam: PRESENT: atraumatic, normocephalic Neck exam: ABSENT: carotid bruit, JVD, lymphadenopathy Respiratory exam: PRESENT: clear to auscultation jose, symmetrical, unlabored. ABSENT: accessory muscle use, decreased breath sounds, prolonged expiratory phas, rales, rhonchi, wheezes Cardiovascular exam: PRESENT: irregular rhythm GI/Abdominal exam: PRESENT: normal bowel sounds, soft, other - Pendulous abdomen. ABSENT: tenderness Rectal exam: PRESENT: deferred Gentrourinary exam: ABSENT: indwelling catheter Extremities exam: PRESENT: +2 edema Musculoskeletal exam: ABSENT: deformity, dislocation Neurological exam: PRESENT: alert, awake, oriented to person, oriented to place, oriented to time, oriented to situation, CN II-XII grossly intact. ABSENT: altered Psychiatric exam: PRESENT: flat affect. ABSENT: agitated, anxious Focused psych exam: ABSENT: delusional, paranoid, restlessness Skin exam: PRESENT: other - Chronic pigment deposition bilateral lower extr emities Results Laboratory Results: 02/15/20 06:18 02/15/20 06:18 02/15/20 02/15/20 06:18 06:18 WBC 7.6 RBC 4.02 L Hgb 11.8 L Hct 35.8 L MCV 89 MCH 29.5 MCHC 33.1 RDW 15.0 H Plt Count 264 Seg Neutrophils % 85.2 H Sodium 136.7 L Potassium 4.8 Chloride 94 L Carbon Dioxide 38 H Anion Gap 5 BUN 24 H Creatinine 0.69 Est GFR ( Amer) > 60 Glucose 181 H Calcium 8.8 Magnesium 2.0 Ferritin 292.00 Total Bilirubin 0.4 AST 31 Alkaline Phosphatase 66 C-Reactive Protein 54.9 H Total Protein 5.9 L Albumin 2.8 L 02/12/20 11:52 Troponin I 0.018 NT-Pro-B Natriuret Pep 156 H Impressions: Chest X-Ray 02/12/20 12:15 IMPRESSION: PATCHY BILATERAL AIRSPACE DISEASE CONCERNING FOR PNEUMONIA. Assessment and Plan - Diagnosis (1) acute onset atrial fibrillation with RVR Is this a current diagnosis for this admission?: Yes (2) Acute and chronic respiratory failure with hypoxia Is this a current diagnosis for this admission?: Yes (3) Pneumonia due to COVID-19 virus Is this a current diagnosis for this admission?: Yes (4) Non-insulin dependent type 2 diabetes mellitus Is this a current diagnosis for this admission?: Yes (5) COPD (chronic obstructive pulmonary disease) Qualifiers: COPD type: chronic bronchitis Chronic bronchitis type: mixed simple and mucopurulent Qualified Code(s): J41.8 - Mixed simple and mucopurulent chronic bronchitis Is this a current diagnosis for this admission?: Yes (6) Hyperlipidemia Qualifiers: Hyperlipidemia type: unspecified Qualified Code(s): E78.5 - Hyperlipidemia, unspecified Is this a current diagnosis for this admission?: Yes (7) Hypertension Qualifiers: Hypertension type: essential hypertension Qualified Code(s): I10 - Ess ential (primary) hypertension Is this a current diagnosis for this admission?: Yes (8) Obstructive sleep apnea Is this a current diagnosis for this admission?: Yes (9) Chronic diastolic heart failure Is this a current diagnosis for this admission?: Yes (10) Morbid obesity Is this a current diagnosis for this admission?: Yes - Plan Summary Summary: (1) acute onset atrial fibrillation with RVR (2) Acute and chronic respiratory failure with hypoxia (3) Pneumonia due to COVID-19 virus (4) Non-insulin dependent type 2 diabetes mellitus (5) COPD (chronic obstructive pulmonary disease) (6) Hyperlipidemia (7) Hypertension (8) Obstructive sleep apnea (9) Chronic diastolic heart failure (10) Morbid obesity Continue the MATH+ protocol, he is showing signs of a response. His breathing overall looks very comfortable. His saturations on 8 L are in the low 90s. We will give him a suppository for his constipation. His CRP and his D-dimer are trending down. He gets his second dose of ivermectin today. Continue IV steroids. Continue sliding scale for elevated blood sugars in the setting of IV steroid therapy. If his oxygen requirement continues to increase, will increase his steroids. 02/15/2020 New onset atrial fibrillation 10 the patient responded to initial 5 mg IV and I have started 12.5 mg of metoprolol tartrate start metoprolol. Twice daily. Will monitor on telemetry and adjust doses according to heart rate. Continue MATH+ protocol for Covid pneumonia Continue to wean oxygen back to the patient's baseline 3 L/min at home Obstructive sleep apnea-continue CPAP at night Beatties mellitus-continue Metformin and sliding scale with Accu-Cheks before meals and at bedtime - Time Time Spent with patient: 15-24 minutes Anticipated Discharge Disposition: Home with Home Health Anticipated Discharge Timeframe: Unknown
[2020-02-15] MEDS: ENOXAPARIN SODIUM INJ 150 MG/1 ML DISP.SYRIN SUBCUT SCH ×2 (14:29→23:31)
[2020-02-15 17:38] LABS: APPEARANCE,URINE SLIGHTLY-CLOUDY; BILIRUBIN,URINE NEGATIVE (NEGATIVE); COLOR,URINE YELLOW; GLUCOSE, URINE NEGATIVE (NEGATIVE); KETONES,URINE NEGATIVE (NEGATIVE); LEUKOCYTE ESTERASE,URINE TRACE (NEGATIVE); NITRITE,URINE NEGATIVE (NEGATIVE); PROTEIN,URINE NEGATIVE (NEGATIVE); URINE SPECIFIC GRAVITY 1.015; UROBILINOGEN,URINE NEGATIVE mg/dL (<2.0)
[2020-02-15] MEDS: APIXABAN 5 MG TABLET PO SCH (17:51)
[2020-02-15] MEDS: MELATONIN 5 MG TABLET PO SCH (23:28)
[2020-02-15] MEDS: GUAIFENESIN 600 MG TABLET.SA PO SCH (23:29)
[2020-02-16] MEDS: ASCORBIC ACID 500 MG TABLET PO SCH ×4 (01:11→17:04)
[2020-02-16] MEDS: DOXYCYCLINE HYCLATE 100 MG in DEXTROSE 5%-WATER 250 ML IV SCH ×2 (05:27→17:05)
[2020-02-16] MEDS: INSULIN LISPRO 100 UNIT/ML 3 ML VIAL SUBCUT SCH ×4 (08:13→21:50)
[2020-02-16] MEDS: TAMSULOSIN HCL 0.4 MG CAP.SR.24H PO SCH (08:13)
[2020-02-16] MEDS: ISOSORBIDE MONONITRATE 30 MG TAB.ER.24H PO SCH (08:13)
[2020-02-16] MEDS: ATORVASTATIN CALCIUM 40 MG TABLET PO SCH (11:07)
[2020-02-16] MEDS: POTASSIUM CHLORIDE 10 MEQ TABLET.ER PO SCH (11:07)
[2020-02-16] MEDS: METOPROLOL TARTRATE 25 MG TABLET PO SCH (11:07)
[2020-02-16] MEDS: GUAIFENESIN 600 MG TABLET.SA PO SCH ×2 (11:07→21:49)
[2020-02-16] MEDS: VITAMIN B COMPLEX TABLET PO SCH (11:07)
[2020-02-16] MEDS: APIXABAN 5 MG TABLET PO SCH ×2 (11:07→17:03)
[2020-02-16] MEDS: CHOLECALCIFEROL (D3) 1,000 UNIT (25 MCG) TABLET PO SCH (11:07)
[2020-02-16] MEDS: FUROSEMIDE 20 MG TABLET PO SCH (11:07)
[2020-02-16] MEDS: METFORMIN HCL 500 MG TABLET PO SCH ×2 (11:07→17:04)
[2020-02-16] MEDS: FAMOTIDINE 20 MG TABLET PO SCH ×2 (11:07→17:03)
[2020-02-16] MEDS: METHYLPREDNISOLONE INJ 40 MG/1 ML SDV IV SCH ×2 (11:08→21:49)
--- NOTE | 2020-02-16 12:46 | PDOC PROGRESS REPORT ---
Subjective Date:: 02/16/20 Subjective:: Mr. Back is sitting up in the chair eating lunch. He reports feeling appreci ably better than yesterday. He is currently on 7 L by nasal cannula. Reason For Visit: DIFFICULTY BREATHING Physical Exam Vital Signs: Temp Pulse Resp BP Pulse Ox 97.3 F 79 24 H 111/75 96 02/16/20 12:13 02/16/20 12:13 02/16/20 12:13 02/16/20 12:13 02/16/20 12:13 Intake & Output 02/15/20 02/16/20 02/17/20 06:59 06:59 06:59 Intake Total 1810 1434 240 Output Total 2220 3100 900 Balance -410 -0735 -232 Weight 173.1 kg 173.1 kg General appearance: PRESENT: no acute distress, cooperative, morbidly obese Head exam: PRESENT: atraumatic, normocephalic Eye exam: PRESENT: conjunctiva pink, EOMI. ABSENT: scleral icterus Ear exam: PRESENT: normal external ear exam. ABSENT: bleeding, drainage Mouth exam: PRESENT: moist, tongue midline Respiratory exam: PRESENT: clear to auscultation jose, symmetrical, unlabored. ABSENT: accessory muscle use, prolonged expiratory phas, rales, rhonchi, tachypnea, wheezes Cardiovascular exam: PRESENT: RRR, +S1, +S2. ABSENT: bradycardia, diastolic murmur, irregular rhythm, systolic murmur, tachycardia GI/Abdominal exam: PRESENT: normal bowel sounds, soft, other - Pendulous abdomen. ABSENT: tenderness Rectal exam: PRESENT: deferred Gentrourinary exam: ABSENT: indwelling catheter Extremities exam: PRESENT: +1 edema Musculoskeletal exam: PRESENT: ambulatory. ABSENT: deformity, dislocation Neurological exam: PRESENT: alert, awake, oriented to person, oriented to place, oriented to time, oriented to situation, CN II-XII grossly intact. ABSENT: altered Psychiatric exam: PRESENT: appropriate affect. ABSENT: agitated, anxious Focused psych exam: ABSENT: delusional, paranoid, restlessness Skin exam: PRESENT: dry, normal color, warm, other - Pigment deposition on both lower legs from chronic edema Results Laboratory Results: 02/15/20 06:18 02/15/20 06:18 02/15/20 16:50 Urine Color YELLOW Urine Appearance SLIGHTLY-CLOUDY Urine pH 6.0 Ur Specific Beebe 1.015 Urine Protein NEGATIVE Urine Glucose (UA) NEGATIVE Urine Ketones NEGATIVE Urine Blood SMALL H Urine Nitrite NEGATIVE Ur Leukocyte Esterase TRACE H Urine WBC (Auto) 5 Urine RBC (Auto) 52 02/12/20 11:52 Troponin I 0.018 NT-Pro-B Natriuret Pep 156 H Impressions: Chest X-Ray 02/12/20 12:15 IMPRESSION: PATCHY BILATERAL AIRSPACE DISEASE CONCERNING FOR PNEUMONIA. Assessment and Plan - Diagnosis (1) acute onset atrial fibrillation with RVR Is this a current diagnosis for this admission?: Yes (2) Acute and chronic respiratory failure with hypoxia Is this a current diagnosis for this admission?: Yes (3) Pneumonia due to COVID-19 virus Is this a current diagnosis for this admission?: Yes (4) Non-insulin dependent type 2 diabetes mellitus Is this a current diagnosis for this admission?: Yes (5) COPD (chronic obstructive pulmonary disease) Qualifiers: COPD type: chronic bronchitis Chronic bronchitis type: mixed simple and mucopurulent Qualified Code(s): J41.8 - Mixed simple and mucopurulent chronic bronchitis Is this a current diagnosis for this admission?: Yes (6) Hyperlipidemia Qualifiers: Hyperlipidemia type: unspecified Qualified Code(s): E78.5 - Hyperlipidemia, unspecified Is this a current diagnosis for this admission?: Yes (7) Hypertension Qualifiers: Hypertension type: essential hypertension Qualified Code(s): I10 - Essential (primary) hypertension Is this a current diagnosis for this admission?: Yes (8) Obstructive sleep apnea Is this a current diagnosis for this admission?: Yes (9) Chronic diastolic heart failure Is this a current diagnosis for this admission?: Yes (10) Morbid obesity Is this a current diagnosis for this admission?: Yes - Plan Summary Summary: (1) acute onset atrial fibrillation with RVR (2) Acute and chronic respiratory failure with hypoxia (3) Pneumonia due to COVID-19 virus (4) Non-insulin dependent type 2 diabetes mellitus (5) COPD (chronic obstructive pulmonary disease) (6) Hyperlipidemia (7) Hypertension (8) Obstructive sleep apnea (9) Chronic diastolic heart failure (10) Morbid obesity Continue the MATH+ protocol, he is showing signs of a response. His breathing overall looks very comfortable. His saturations on 8 L are in the low 90s. We will give him a suppository for his constipation. His CRP and his D-dimer are t rending down. He gets his second dose of ivermectin today. Continue IV steroids. Continue sliding scale for elevated blood sugars in the setting of IV steroid therapy. If his oxygen requirement continues to increase, will increase his steroids. 02/15/2020 New onset atrial fibrillation - the patient responded to initial 5 mg IV and I have started 12.5 mg of metoprolol tartrate start metoprolol. Twice daily. Will monitor on telemetry and adjust doses according to heart rate. Continue MATH+ protocol for Covid pneumonia Continue to wean oxygen back to the patient's baseline 3 L/min at home Obstructive sleep apnea-continue CPAP at night Diabetes mellitus-continue Metformin and sliding scale with Accu-Cheks before meals and at bedtime 02/16/2020 New onset A. fib-heart rate is reasonably controlled today. We will continue current medication regimen. Continue to monitor on telemetry. Covid pneumonia-very slow recovery. Still requiring CPAP consistently. Continue current regimen and attempt to wean off of oxygen as tolerated. Obstructive sleep apnea-we will continue CPAP at night. Continue to wean daytime oxygen as tolerated. Diabetes [id number] still very variable. We will try increased dose of Metformin first. Then consider adding low-dose Lantus. - Time Time Spent with patient: 15-24 minutes Medications reviewed and adjusted accordingly: Yes Anticipated Discharge Disposition: Unknown Anticipated Discharge Timeframe: Unknown
[2020-02-16] MEDS: METOPROLOL TARTRATE PF/INJ 5 MG/5 ML SDV IV PRN (17:05)
[2020-02-16] MEDS ORDERED: METOPROLOL TARTRATE PF/INJ 5 MG/5 ML SDV IV ONE (18:30)
[2020-02-16] MEDS ORDERED: METOPROLOL TARTRATE 25 MG TABLET PO ONE (20:45)
[2020-02-16] MEDS: MELATONIN 5 MG TABLET PO SCH (21:49)
[2020-02-17] MEDS: METOPROLOL TARTRATE 25 MG TABLET PO SCH ×5 (01:57→21:35)
[2020-02-17] MEDS: ASCORBIC ACID 500 MG TABLET PO SCH ×4 (01:57→17:18)
[2020-02-17] MEDS: DOXYCYCLINE HYCLATE 100 MG in DEXTROSE 5%-WATER 250 ML IV SCH ×2 (05:50→18:09)
[2020-02-17] MEDS: INSULIN LISPRO 100 UNIT/ML 3 ML VIAL SUBCUT SCH ×4 (08:26→21:36)
[2020-02-17] MEDS: TAMSULOSIN HCL 0.4 MG CAP.SR.24H PO SCH (08:27)
[2020-02-17] MEDS: ISOSORBIDE MONONITRATE 30 MG TAB.ER.24H PO SCH (08:27)
[2020-02-17] MEDS: METHYLPREDNISOLONE INJ 40 MG/1 ML SDV IV SCH ×3 (11:06→21:35)
[2020-02-17] MEDS: METFORMIN HCL 500 MG TABLET PO SCH ×2 (11:07→17:18)
[2020-02-17] MEDS: CHOLECALCIFEROL (D3) 1,000 UNIT (25 MCG) TABLET PO SCH (11:07)
[2020-02-17] MEDS: GUAIFENESIN 600 MG TABLET.SA PO SCH ×2 (11:07→21:35)
[2020-02-17] MEDS: VITAMIN B COMPLEX TABLET PO SCH (11:07)
[2020-02-17] MEDS: FAMOTIDINE 20 MG TABLET PO SCH ×2 (11:07→17:18)
[2020-02-17] MEDS: APIXABAN 5 MG TABLET PO SCH ×2 (11:07→17:18)
[2020-02-17] MEDS: ATORVASTATIN CALCIUM 40 MG TABLET PO SCH (11:07)
[2020-02-17] MEDS: POTASSIUM CHLORIDE 10 MEQ TABLET.ER PO SCH (11:08)
[2020-02-17] MEDS: FUROSEMIDE 20 MG TABLET PO SCH (11:08)
[2020-02-17] MEDS: FLUOXETINE HCL 20 MG/5 ML UDCUP PO SCH (11:55)
[2020-02-17] MEDS ORDERED: DIGOXIN 0.25 MG TABLET PO ONE (12:22)
[2020-02-17] MEDS ORDERED: NORMAL SALINE 250 ML IV PRN (12:24)
--- NOTE | 2020-02-17 12:30 | PDOC PROGRESS REPORT ---
Subjective Date:: 02/17/20 Subjective:: Patient's heart rate still not well controlled. Patient still extremely oxygen dependent. Reason For Visit: DIFFICULTY BREATHING Physical Exam Vital Signs: Temp Pulse Resp BP Pulse Ox 97.5 F 75 26 H 95/76 L 91 L 02/17/20 08:11 02/17/20 08:11 02/17/20 08:11 02/17/20 08:11 02/17/20 08:25 Intake & Output 02/16/20 02/17/20 02/18/20 06:59 06:59 06:59 Intake Total 1434 1340 250 Output Total 3100 3375 Balance -1666 -2034 250 Weight 173.1 kg 173.1 kg General appearance: PRESENT: cooperative, mild distress, morbidly obese, well- developed Head exam: PRESENT: atraumatic, normocephalic Ear exam: PRESENT: normal external ear exam. ABSENT: bleeding, drainage Mouth exam: PRESENT: moist, tongue midline Respiratory exam: PRESENT: rales - faint at bases, symmetrical, tachypnea, unlabored. ABSENT: rhonchi, wheezes Cardiovascular exam: PRESENT: irregular rhythm - With RVR, +S1, +S2. ABSENT: bradycardia, diastolic murmur, systolic murmur, tachycardia GI/Abdominal exam: PRESENT: normal bowel sounds, soft, other - pendulous abdomen. ABSENT: tenderness Rectal exam: PRESENT: deferred Gentrourinary exam: PRESENT: indwelling catheter Extremities exam: PRESENT: +2 edema Musculoskeletal exam: ABSENT: deformity, dislocation Neurological exam: PRESENT: alert, awake, oriented to person, oriented to place, oriented to time, oriented to situation, CN II-XII grossly intact. ABSENT: altered Psychiatric exam: PRESENT: appropriate affect. ABSENT: agitated, anxious Focused psych exam: ABSENT: delusional, paranoid, restlessness Skin exam: PRESENT: dry, warm, other - Chronic pigment deposition Results Laboratory Results: 02/15/20 06:18 02/15/20 06:18 02/12/20 11:52 Troponin I 0.018 NT-Pro-B Natriuret Pep 156 H Impressions: Chest X-Ray 02/12/20 12:15 IMPRESSION: PATCHY BILATERAL AIRSPACE DISEASE CONCERNING FOR PNEUMONIA. Assessment and Plan - Diagnosis (1) acute onset atrial fibrillation with RVR Is this a current diagnosis for this admission?: Yes (2) Acute and chronic respiratory failure with hypoxia Is this a current diagnosis for this admission?: Yes (3) Pneumonia due to COVID-19 virus Is this a current diagnosis for this admission?: Yes (4) Non-insulin dependent type 2 diabetes mellitus Is this a current diagnosis for this admission?: Yes (5) COPD (chronic obstructive pulmonary disease) Qualifiers: COPD type: chronic bronchitis Chronic bronchitis type: mixed simple and mucopurulent Qualified Code(s): J41.8 - Mixed simple and mucopurulent chronic bronchitis Is this a current diagnosis for this admission?: Yes (6) Hyperlipidemia Qualifiers: Hyperlipidemia type: unspecified Qualified Code(s): E78.5 - Hyperlipidemia, unspecified Is this a current diagnosis for this admission?: Yes (7) Hypertension Qualifiers: Hypertension type: essential hypertension Qualified Code(s): I10 - Essential (primary) hypertension Is this a current diagnosis for this admission?: Yes (8) Obstructive sleep apnea Is this a current diagnosis for this admission?: Yes (9) Chronic diastolic heart failure Is this a current diagnosis for this admission?: Yes (10) Morbid obesity Is this a current diagnosis for this admission?: Yes - Plan Summary Summary: (1) acute onset atrial fibrillation with RVR (2) Acute and chronic respiratory failure with hypoxia (3) Pneumonia due to COVID-19 virus (4) Non-insulin dependent type 2 diabetes mellitus (5) COPD (chronic obstructive pulmonary disease) (6) Hyperlipidemia (7) Hypertension (8) Obstructive sleep apnea (9) Chronic diastolic heart failure (10) Morbid obesity Continue the MATH+ protocol, he is showing signs of a response. His breathing overall looks very comfortable. His saturations on 8 L are in the low 90s. We will give him a suppository for his constipation. His CRP and his D-dimer are trending down. He gets his second dose of ivermectin today. Continue IV steroids. Continue sliding scale for elevated blood sugars in the setting of IV steroid therapy. If his oxygen requirement continues to increase, will increase his steroids. 02/15/2020 New onset atrial fibrillation - the patient responded to initial 5 mg IV and I have started 12.5 mg of metoprolol tartrate start metoprolol. Twice daily. Will monitor on telemetry and adjust doses according to heart rate. Continue MATH+ protocol for Covid pneumonia Continue to wean oxygen back to the patient's baseline 3 L/min at home Obstructive sleep apnea-continue CPAP at night Diabetes mellitus-continue Metformin and sliding scale with Accu-Cheks before meals and at bedtime 02/16/2020 New onset A. fib-heart rate is reasonably controlled today. We will continue current medication regimen. Continue to monitor on telemetry. Covid pneumonia-very slow recovery. Still requiring CPAP consistently. Continue current regimen and attempt to wean off of oxygen as tolerated. COPD-continue current regimen Obstructive sleep apnea-we will continue CPAP at night. Continue to wean daytime oxygen as tolerated. Diabetes [id number] still very variable. We will try increased dose of Metformin first. Then consider adding low-dose Lantus. 02/17/2020 Atrial fibrillation-rate still not well controlled. With marginal blood pressures I will decrease the metoprolol to every 8 hours and initiate digoxin therapy. If this is not successful then change metoprolol to diltiazem. Acute hypoxic respiratory failure with Covid pneumonia-continue current regimen. Continue to wean from oxygen as tolerated. Convalescent plasma administered today. Obstructive sleep apnea-patient can tolerate nasal cannula during the day he still requires CPAP at night for his sleep apnea Diabetes mellitus type [id number] improved with increased dose of Metformin Hypertension-blood pressure is marginal. Medication adjustments as above. - Time Time Spent with patient: 15-24 minutes Medications reviewed and adjusted accordingly: Yes Anticipated Discharge Disposition: Unknown Anticipated Discharge Timeframe: Unknown
[2020-02-17] MEDS ORDERED: DIGOXIN 0.125 MG TABLET PO ONE (13:00)
[2020-02-17] MEDS: MELATONIN 5 MG TABLET PO SCH (21:35)
[2020-02-18] MEDS: ASCORBIC ACID 500 MG TABLET PO SCH ×5 (00:09→23:27)
[2020-02-18] MEDS: DOXYCYCLINE HYCLATE 100 MG in DEXTROSE 5%-WATER 250 ML IV SCH ×2 (06:11→17:38)
[2020-02-18] MEDS: METOPROLOL TARTRATE 25 MG TABLET PO SCH ×3 (06:12→23:28)
[2020-02-18] MEDS: METHYLPREDNISOLONE INJ 40 MG/1 ML SDV IV SCH ×3 (06:12→23:28)
[2020-02-18 07:05] LABS: HEMATOCRIT 43.9 % (37.9-51.0); HEMOGLOBIN 14.6 g/dL (13.5-17.0); MEAN CORPUSCULAR HGB CONC 33.4 g/dL (32.0-36.0); MEAN CORPUSCULAR VOLUME 87 fl (80-97); PLATELET COUNT 299 10^3/uL (150-450); RED BLOOD COUNT 5.04 10^6/uL (4.35-5.55); RED CELL DISTRIBUTION WIDTH 14.9 % (11.5-14.0); WHITE BLOOD COUNT 9.3 10^3/uL (4.0-10.5)
[2020-02-18 08:17] LABS: ALBUMIN 3.1 g/dL (3.5-5.0); ALKALINE PHOSPHATASE 68 U/L (38-126); ANION GAP 10 (5-19); ASPARTATE AMINO TRANSFERASE 29 U/L (17-59); BILIRUBIN,DIRECT 0.3 mg/dL (0.0-0.4); BILIRUBIN,TOTAL 0.7 mg/dL (0.2-1.3); BLOOD UREA NITROGEN 33 mg/dL (7-20); C-REACTIVE PROTEIN 14.3 mg/L (<10.0); CALCIUM 9.3 mg/dL (8.4-10.2); CARBON DIOXIDE 31 mmol/L (22-30); CHLORIDE 99 mmol/L (98-107); GLUCOSE 202 mg/dL (75-110); POTASSIUM 5.4 mmol/L (3.6-5.0); TOTAL PROTEIN 6.2 g/dL (6.3-8.2)
[2020-02-18] MEDS: INSULIN LISPRO 100 UNIT/ML 3 ML VIAL SUBCUT SCH ×4 (08:18→23:28)
[2020-02-18] MEDS: ISOSORBIDE MONONITRATE 30 MG TAB.ER.24H PO SCH (08:18)
[2020-02-18] MEDS: TAMSULOSIN HCL 0.4 MG CAP.SR.24H PO SCH (08:18)
[2020-02-18] MEDS: ZINC SULFATE 220 MG CAPSULE PO SCH (09:27)
[2020-02-18] MEDS: FLUOXETINE HCL 20 MG/5 ML UDCUP PO SCH (09:27)
[2020-02-18] MEDS: APIXABAN 5 MG TABLET PO SCH ×2 (09:27→17:37)
[2020-02-18] MEDS: CHOLECALCIFEROL (D3) 1,000 UNIT (25 MCG) TABLET PO SCH (09:28)
[2020-02-18] MEDS: METFORMIN HCL 500 MG TABLET PO SCH ×2 (09:28→17:37)
[2020-02-18] MEDS: FAMOTIDINE 20 MG TABLET PO SCH ×2 (09:28→17:37)
[2020-02-18] MEDS: FUROSEMIDE 20 MG TABLET PO SCH (09:28)
[2020-02-18] MEDS: VITAMIN B COMPLEX TABLET PO SCH (09:28)
[2020-02-18] MEDS: GUAIFENESIN 600 MG TABLET.SA PO SCH ×2 (09:28→23:28)
[2020-02-18] MEDS: ATORVASTATIN CALCIUM 40 MG TABLET PO SCH (09:28)
[2020-02-18] MEDS: DIGOXIN 0.125 MG TABLET PO SCH (09:28)
[2020-02-18] MEDS: POTASSIUM CHLORIDE 10 MEQ TABLET.ER PO SCH (10:39)
--- NOTE | 2020-02-18 11:14 | PDOC PROGRESS REPORT ---
Subjective Date:: 02/18/20 Subjective:: The patient is sleeping sitting up in the chair. He is on nasal cannula. He has no new complaints. Heart rate appears to be under better control. Reason For Visit: DIFFICULTY BREATHING Physical Exam Vital Signs: Temp Pulse Resp BP Pulse Ox 97.7 F 52 L 18 138/80 H 95 02/18/20 08:09 02/18/20 08:09 02/18/20 08:09 02/18/20 08:09 02/18/20 08:09 Intake & Output 02/17/20 02/18/20 02/19/20 06:59 06:59 06:59 Intake Total 1340 1495 Output Total 3375 6935 Balance -2034 -1029 Weight 173.1 kg 173 kg General appearance: PRESENT: cooperative, mild distress, morbidly obese, well- developed, well-nourished Head exam: PRESENT: atraumatic, normocephalic Eye exam: PRESENT: conjunctiva pink, EOMI. ABSENT: scleral icterus Ear exam: PRESENT: normal external ear exam. ABSENT: bleeding, drainage Mouth exam: PRESENT: moist, tongue midline Neck exam: ABSENT: carotid bruit, JVD, lymphadenopathy, tracheal deviation, tracheostomy Respiratory exam: PRESENT: clear to auscultation jose, symmetrical, unlabored. ABSENT: accessory muscle use, rales, rhonchi, tachypnea, wheezes Cardiovascular exam: PRESENT: irregular rhythm. ABSENT: bradycardia, diastolic murmur, RRR, systolic murmur GI/Abdominal exam: PRESENT: soft, other - pendulous abdomen. ABSENT: tenderness Rectal exam: PRESENT: deferred Extremities exam: PRESENT: +2 edema Musculoskeletal exam: PRESENT: ambulatory Neurological exam: PRESENT: alert, awake, oriented to person, oriented to place, oriented to time, oriented to situation, CN II-XII grossly intact. ABSENT: altered Psychiatric exam: PRESENT: appropriate affect. ABSENT: agitated, anxious Focused psych exam: ABSENT: delusional, paranoid, restlessness Skin exam: PRESENT: other - chronic pigment deposition on legs Results Laboratory Results: 02/18/20 06:51 02/18/20 06:51 02/17/20 02/18/20 02/18/20 12:58 06:51 06:51 WBC 9.3 RBC 5.04 Hgb 14.6 Hct 43.9 MCV 87 MCH 29.0 MCHC 33.4 RDW 14.9 H Plt Count 299 Sodium 139.9 Potassium 5.4 H Chloride 99 Carbon Dioxide 31 H Anion Gap 10 BUN 33 H Creatinine 0.66 Est GFR ( Amer) > 60 Glucose 202 H Calcium 9.3 Magnesium 2.1 Ferritin 245.00 Total Bilirubin 0.7 AST 29 Alkaline Phosphatase 68 C-Reactive Protein 14.3 H Total Protein 6.2 L Albumin 3.1 L Blood Type A POSITIVE 02/12/20 11:52 Troponin I 0.018 NT-Pro-B Natriuret Pep 156 H Impressions: Chest X-Ray 02/12/20 12:15 IMPRESSION: PATCHY BILATERAL AIRSPACE DISEASE CONCERNING FOR PNEUMONIA. Assessment and Plan - Diagnosis (1) acute onset atrial fibrillation with RVR Is this a current diagnosis for this admission?: Yes (2) Acute and chronic respiratory failure with hypoxia Is this a current diagnosis for this admission?: Yes (3) Pneumonia due to COVID-19 virus Is this a current diagnosis for this admission?: Yes (4) Non-insulin dependent type 2 diabetes mellitus Is this a current diagnosis for this admission?: Yes (5) COPD (chronic obstructive pulmonary disease) Qualifiers: COPD type: chronic bronchitis Chronic bronchitis type: mixed simple and mucopurulent Qualified Code(s): J41.8 - Mixed simple and mucopurulent chronic bronchitis Is this a current diagnosis for this admission?: Yes (6) Hyperlipidemia Qualifiers: Hyperlipidemia type: unspecified Qualified Code(s): E78.5 - Hyperlipidemia, unspecified Is this a current diagnosis for this admission?: Yes (7) Hypertension Qualifiers: Hypertension type: essential hypertension Qualified Code(s): I10 - Essential (primary) hypertension Is this a current diagnosis for this admission?: Yes (8) Obstructive sleep apnea Is this a current diagnosis for this admission?: Yes (9) Chronic diastolic heart failure Is this a current diagnosis for this admission?: Yes (10) Morbid obesity Is this a current diagnosis for this admission?: Yes (11) Hyperkalemia Is this a current diagnosis for this admission?: Yes - Plan Summary Summary: (1) acute onset atrial fibrillation with RVR (2) Acute and chronic respiratory failure with hypoxia (3) Pneumonia due to COVID-19 virus (4) Non-insulin dependent type 2 diabetes mellitus (5) COPD (chronic obstructive pulmonary disease) (6) Hyperlipidemia (7) Hypertension (8) Obstructive sleep apnea (9) Chronic diastolic heart failure (10) Morbid obesity (11) Hyperkalemia Continue the MATH+ protocol, he is showing signs of a response. His breathing overall looks very comfortable. His saturations on 8 L are in the low 90s. We will give him a suppository for his constipation. His CRP and his D-dimer are trending down. He gets his second dose of ivermectin today. Continue IV steroids. Continue sliding scale for elevated blood sugars in the setting of IV steroid therapy. If his oxygen requirement continues to increase, will increase his steroids. 02/15/2020 New onset atrial fibrillation - the patient responded to initial 5 mg IV and I have started 12.5 mg of metoprolol tartrate start metoprolol. Twice daily. Will monitor on telemetry and adjust doses according to heart rate. Continue MATH+ protocol for Covid pneumonia Continue to wean oxygen back to the patient's baseline 3 L/min at home Obstructive sleep apnea-continue CPAP at night Diabetes mellitus-continue Metformin and sliding scale with Accu-Cheks before meals and at bedtime 02/16/2020 New onset A. fib-heart rate is reasonably controlled today. We will continue current medication regimen. Continue to monitor on telemetry. Covid pneumonia-very slow recovery. Still requiring CPAP consistently. Continue current regimen and attempt to wean off of oxygen as tolerated. COPD-continue current regimen Obstructive sleep apnea-we will continue CPAP at night. Continue to wean daytime oxygen as tolerated. Diabetes nnkubcfu-[id number]-Hhmco still very variable. We will try increased dose of Metformin first. Then consider adding low-dose Lantus. 02/17/2020 Atrial fibrillation-rate still not well controlled. With marginal blood pressures I will decrease the metoprolol to every 8 hours and initiate digoxin therapy. If this is not successful then change metoprolol to diltiazem. Acute hypoxic respiratory failure with Covid pneumonia-continue current regimen. Continue to wean from oxygen as tolerated. Convalescent plasma administered today. Obstructive sleep apnea-patient can tolerate nasal cannula during the day he still requires CPAP at night for his sleep apnea Diabetes mellitus type 5-Ogqx-Baeiu improved with increased dose of Metformin Hypertension-blood pressure is marginal. Medication adjustments as above. 02/18/2020 Atrial fibrillation-the addition of digoxin has helped. Blood pressures are improved as well. Continue current dose of metoprolol and monitor on telemetry. Acute hypoxic respiratory failure with Covid pneumonia-continue current regimen. Patient is now down to 5 L nasal cannula. Continue to wean oxygen as justin ated. Obstructive sleep apnea-continue CPAP at night Hypertension-blood pressure improved with change in medication. Diabetes-continue diabetic diet and monitor Accu-Cheks. Glucose improved with higher dose of Metformin. Hyperkalemia-potassium is 5.4. I will hold his potassium supplement and resta rted on Tuesday at the lower dose. Continue to monitor potassium. - Time Time Spent with patient: 15-24 minutes Medications reviewed and adjusted accordingly: Yes Anticipated Discharge Disposition: Unknown Anticipated Discharge Timeframe: Unknown
[2020-02-18] MEDS: DOCUSATE SODIUM 100 MG CAPSULE PO SCH (11:59)
[2020-02-18] MEDS ORDERED: ONDANSETRON HCL INJ/PF 4 MG/2 ML SDV IV PRN (14:00)
[2020-02-18] MEDS: MELATONIN 5 MG TABLET PO SCH (23:27)
[2020-02-19] MEDS: ASCORBIC ACID 500 MG TABLET PO SCH ×4 (06:46→23:31)
[2020-02-19] MEDS: METOPROLOL TARTRATE 25 MG TABLET PO SCH (06:46)
[2020-02-19] MEDS: METHYLPREDNISOLONE INJ 40 MG/1 ML SDV IV SCH ×3 (06:47→23:30)
[2020-02-19] MEDS: DOXYCYCLINE HYCLATE 100 MG in DEXTROSE 5%-WATER 250 ML IV SCH (06:47)
[2020-02-19] MEDS: CHOLECALCIFEROL (D3) 1,000 UNIT (25 MCG) TABLET PO SCH (09:17)
[2020-02-19] MEDS: FUROSEMIDE 20 MG TABLET PO SCH (09:17)
[2020-02-19] MEDS: GUAIFENESIN 600 MG TABLET.SA PO SCH ×2 (09:17→23:30)
[2020-02-19] MEDS: FAMOTIDINE 20 MG TABLET PO SCH ×2 (09:17→18:11)
[2020-02-19] MEDS: METFORMIN HCL 500 MG TABLET PO SCH ×2 (09:17→18:11)
[2020-02-19] MEDS: APIXABAN 5 MG TABLET PO SCH ×2 (09:17→18:11)
[2020-02-19] MEDS: ZINC SULFATE 220 MG CAPSULE PO SCH (09:18)
[2020-02-19] MEDS: VITAMIN B COMPLEX TABLET PO SCH (09:18)
[2020-02-19] MEDS: DOCUSATE SODIUM 100 MG CAPSULE PO SCH (09:18)
[2020-02-19] MEDS: ATORVASTATIN CALCIUM 40 MG TABLET PO SCH (09:18)
[2020-02-19] MEDS: TAMSULOSIN HCL 0.4 MG CAP.SR.24H PO SCH (09:18)
[2020-02-19] MEDS: ISOSORBIDE MONONITRATE 30 MG TAB.ER.24H PO SCH (09:18)
[2020-02-19] MEDS: DIGOXIN 0.125 MG TABLET PO SCH (09:18)
[2020-02-19] MEDS: INSULIN LISPRO 100 UNIT/ML 3 ML VIAL SUBCUT SCH ×4 (09:18→22:51)
[2020-02-19] MEDS: FLUOXETINE HCL 20 MG/5 ML UDCUP PO SCH (09:19)
[2020-02-19] MEDS ORDERED: METOPROLOL SUCCINATE 50 MG TAB.SR.24H PO SCH (10:00)
[2020-02-19] MEDS: ISOSORBIDE MONONITRATE 60 MG TAB.ER.24H PO SCH (10:26)
[2020-02-19] MEDS: AMLODIPINE BESYLATE 5 MG TABLET PO SCH (10:29)
[2020-02-19 11:07] LABS: HEMATOCRIT 43.4 % (37.9-51.0); HEMOGLOBIN 14.5 g/dL (13.5-17.0); MEAN CORPUSCULAR HEMOGLOBIN 29.2 pg (27.0-33.4); MEAN CORPUSCULAR HGB CONC 33.4 g/dL (32.0-36.0); MEAN CORPUSCULAR VOLUME 88 fl (80-97); PLATELET COUNT 343 10^3/uL (150-450); RED BLOOD COUNT 4.96 10^6/uL (4.35-5.55); WHITE BLOOD COUNT 10.7 10^3/uL (4.0-10.5)
[2020-02-19 11:32] LABS: ANION GAP 7 (5-19); BLOOD UREA NITROGEN 37 mg/dL (7-20); CALCIUM 9.2 mg/dL (8.4-10.2); CARBON DIOXIDE 33 mmol/L (22-30); CHLORIDE 92 mmol/L (98-107); GLUCOSE 197 mg/dL (75-110); POTASSIUM 5.3 mmol/L (3.6-5.0)
[2020-02-19] MEDS: METOPROLOL TARTRATE PF/INJ 5 MG/5 ML SDV IV PRN (20:31)
[2020-02-19] MEDS ORDERED: NORMAL SALINE 1000 ML 1,000 ML IV ONE (21:33)
--- NOTE | 2020-02-19 21:39 | PDOC PROGRESS REPORT ---
Subjective Date:: 02/19/20 Subjective:: NAEO. He is steadily being weaned down on oxygen back to his home 3L O2. Reason For Visit: DIFFICULTY BREATHING Physical Exam Vital Signs: Temp Pulse Resp BP Pulse Ox 97.6 F 71 19 122/63 96 02/19/20 19:45 02/19/20 19:45 02/19/20 19:45 02/19/20 19:45 02/19/20 19:45 Intake & Output 02/18/20 02/19/20 02/20/20 06:59 06:59 06:59 Intake Total 1495 1040 250 Output Total 2525 3725 1400 Balance -7231 -7985 -1150 Weight 173 kg 173.2 kg General appearance: PRESENT: no acute distress, cooperative Eye exam: ABSENT: scleral icterus Mouth exam: PRESENT: dry mucosa Throat exam: ABSENT: post pharyngeal erythema Neck exam: ABSENT: JVD Respiratory exam: PRESENT: clear to auscultation jose Cardiovascular exam: PRESENT: RRR GI/Abdominal exam: PRESENT: normal bowel sounds, soft. ABSENT: tenderness Gentrourinary exam: PRESENT: indwelling catheter Neurological exam: PRESENT: alert, awake Psychiatric exam: PRESENT: appropriate affect Skin exam: ABSENT: jaundice Results Laboratory Results: 02/19/20 10:59 02/19/20 10:59 02/19/20 02/19/20 10:59 10:59 WBC 10.7 H RBC 4.96 Hgb 14.5 Hct 43.4 MCV 88 MCH 29.2 MCHC 33.4 RDW 15.0 H Plt Count 343 Sodium 132.3 L Potassium 5.3 H Chloride 92 L Carbon Dioxide 33 H Anion Gap 7 BUN 37 H Creatinine 0.69 Est GFR ( Amer) > 60 Glucose 197 H Calcium 9.2 Magnesium 2.2 02/12/20 11:52 Troponin I 0.018 NT-Pro-B Natriuret Pep 156 H Impressions: Chest X-Ray 02/12/20 12:15 IMPRESSION: PATCHY BILATERAL AIRSPACE DISEASE CONCERNING FOR PNEUMONIA. Assessment and Plan - Diagnosis (1) Morbid obesity with BMI of 50.0-59.9, adult Is this a current diagnosis for this admission?: Yes (2) Chronic diastolic heart failure Is this a current diagnosis for this admission?: Yes (3) Hyperkalemia Is this a current diagnosis for this admission?: Yes (4) Morbid obesity Is this a current diagnosis for this admission?: Yes (5) Non-insulin dependent type 2 diabetes mellitus Is this a current diagnosis for this admission?: Yes (6) Pneumonia due to COVID-19 virus Is this a current diagnosis for this admission?: Yes (7) acute onset atrial fibrillation with RVR Is this a current diagnosis for this admission?: Yes (8) Acute and chronic respiratory failure with hypoxia Is this a current diagnosis for this admission?: Yes (9) COPD exacerbation Is this a current diagnosis for this admission?: Yes - Plan Summary Summary: Acute and chronic respiratory failure with hypoxia Pneumonia due to COVID-19 virus Continue the MATH+ protocol, he is showing signs of a response. His breathing overall looks very comfortable. His saturations on 4L are in the 90s. CRP and his D-dimer are trending down. s/p 2 doses of ivermectin therapy. Continue IV steroids. New onset atrial fibrillation - rate controlled. continue Eliquis. Obstructive sleep apnea-continue CPAP at night Diabetes mellitus-continue Metformin and sliding scale with Accu-Cheks before meals and at bedtime Hyperkalemia-DC potassium supplement Increasing BUN-hold Lasix and give 1 L NS slowly over 4 hours, recheck BMP in AM Debility-PT consult, fall precautions Morbid obesity-lifestyle modifications and weight loss discussed Chronic Diastolic CHF-appears dry on exam Code Status: DNR/DNI - Time Time Spent with patient: 35 or more minutes Anticipated Discharge Disposition: Home with Home Health Anticipated Discharge Timeframe: within 48 hours
[2020-02-19] MEDS: MELATONIN 5 MG TABLET PO SCH (23:30)
[2020-02-20 03:50] LABS: APPEARANCE,URINE CLEAR; BILIRUBIN,URINE NEGATIVE (NEGATIVE); COLOR,URINE YELLOW; GLUCOSE, URINE NEGATIVE (NEGATIVE); KETONES,URINE NEGATIVE (NEGATIVE); LEUKOCYTE ESTERASE,URINE TRACE (NEGATIVE); NITRITE,URINE NEGATIVE (NEGATIVE); PROTEIN,URINE NEGATIVE (NEGATIVE); URINE SPECIFIC GRAVITY 1.018
[2020-02-20] MEDS: ASCORBIC ACID 500 MG TABLET PO SCH ×2 (05:45→11:08)
[2020-02-20] MEDS: METHYLPREDNISOLONE INJ 40 MG/1 ML SDV IV SCH ×2 (05:46→13:04)
[2020-02-20 07:32] LABS: HEMATOCRIT 43.8 % (37.9-51.0); HEMOGLOBIN 14.4 g/dL (13.5-17.0); MEAN CORPUSCULAR HEMOGLOBIN 28.7 pg (27.0-33.4); MEAN CORPUSCULAR HGB CONC 32.9 g/dL (32.0-36.0); MEAN CORPUSCULAR VOLUME 87 fl (80-97); PLATELET COUNT 276 10^3/uL (150-450); RED BLOOD COUNT 5.03 10^6/uL (4.35-5.55); RED CELL DISTRIBUTION WIDTH 14.9 % (11.5-14.0); WHITE BLOOD COUNT 8.9 10^3/uL (4.0-10.5)
[2020-02-20 07:53] LABS: ANION GAP 5 (5-19); BLOOD UREA NITROGEN 42 mg/dL (7-20); CALCIUM 8.6 mg/dL (8.4-10.2); CARBON DIOXIDE 32 mmol/L (22-30); CHLORIDE 95 mmol/L (98-107); GLUCOSE 191 mg/dL (75-110); POTASSIUM 5.3 mmol/L (3.6-5.0)
[2020-02-20] MEDS: INSULIN LISPRO 100 UNIT/ML 3 ML VIAL SUBCUT SCH ×2 (08:55→11:22)
[2020-02-20] MEDS: ATORVASTATIN CALCIUM 40 MG TABLET PO SCH (09:00)
[2020-02-20] MEDS: GUAIFENESIN 600 MG TABLET.SA PO SCH (09:00)
[2020-02-20] MEDS: FAMOTIDINE 20 MG TABLET PO SCH (09:00)
[2020-02-20] MEDS: CHOLECALCIFEROL (D3) 1,000 UNIT (25 MCG) TABLET PO SCH (09:00)
[2020-02-20] MEDS: METFORMIN HCL 500 MG TABLET PO SCH (09:00)
[2020-02-20] MEDS: TAMSULOSIN HCL 0.4 MG CAP.SR.24H PO SCH (09:00)
[2020-02-20] MEDS: AMLODIPINE BESYLATE 5 MG TABLET PO SCH (09:00)
[2020-02-20] MEDS: ZINC SULFATE 220 MG CAPSULE PO SCH (09:00)
[2020-02-20] MEDS: VITAMIN B COMPLEX TABLET PO SCH (09:00)
[2020-02-20] MEDS: APIXABAN 5 MG TABLET PO SCH (09:00)
[2020-02-20] MEDS: FLUOXETINE HCL 20 MG/5 ML UDCUP PO SCH (09:02)
[2020-02-20] MEDS: ISOSORBIDE MONONITRATE 60 MG TAB.ER.24H PO SCH (09:05)
[2020-02-20] MEDS ORDERED: METOPROLOL SUCCINATE 50 MG TAB.SR.24H PO SCH (10:00)
[2020-02-20] MEDS ORDERED: POTASSIUM CHLORIDE 10 MEQ TABLET.ER PO SCH (10:00)
--- NOTE | 2020-02-20 10:44 | RADIOLOGY REPORT (SQ) ---
EXAM DESCRIPTION: CHEST SINGLE VIEW IMAGES COMPLETED DATE/TIME: 02/20/2020 9:35 am REASON FOR STUDY: increasing O2 needs, concern for ? volume overload COMPARISON: 02/12/2020 NUMBER OF VIEWS: One view. TECHNIQUE: Single frontal radiographic image of the chest acquired. LIMITATIONS: None. FINDINGS: LUNGS AND PLEURA: Improved aeration. No infiltrate. Small pleural effusions. Chronic el evation left diaphragm. MEDIASTINUM AND HEART: Stable heart size and mediastinal structures. BONY STRUCTURES: No acute findings. HARDWARE: None. OTHER: No other significant finding. IMPRESSION: Improved aeration since the prior. TECHNICAL DOCUMENTATION: JOB ID: [id number] Reading location - IP/workstation name: [email or web address]
[2020-02-20] MEDS ORDERED: FUROSEMIDE INJ/PF 40 MG/4 ML SDV IV ONE (13:00)
[2020-02-20 15:46] VITALS: BP 102/61
--- NOTE | 2020-02-20 20:25 | PDOC DISCHARGE SUMMARY ---
Impression - Admit/DC Date/PCP Admission Date/Primary Care Provider: 02/12/20 15:00 Discharge Date: 02/20/20 - Discharge Diagnosis (1) Morbid obesity with BMI of 50.0-59.9, adult Is this a current diagnosis for this admission?: Yes (2) Chronic diastolic heart failure Is this a current diagnosis for this admission?: Yes (3) Hyperkalemia Is this a current diagnosis for this admission?: Yes (4) Morbid obesity Is this a current diagnosis for this admission?: Yes (5) Non-insulin dependent type 2 diabetes mellitus Is this a current diagnosis for this admission?: Yes (6) Pneumonia due to COVID-19 virus Is this a current diagnosis for this admission?: Yes (7) acute onset atrial fibrillation with RVR Is this a current diagnosis for this admission?: Yes (8) Acute and chronic respiratory failure with hypoxia Is this a current diagnosis for this admission?: Yes (9) COPD exacerbation Is this a current diagnosis for this admission?: Yes - Assessment Summary: Acute and chronic respiratory failure with hypoxia Pneumonia due to COVID-19 virus Received MATH+ protocol, and subsequently showed signs of excellent response. His breathing overall looks very comfortable. His saturations on 3L (this is his baseline O2 needs) are in the mid-90s. CRP and his D-dimer are trending down. He completed antibiotics, ivermectin and steroids while inpatient. New onset atrial fibrillation - rate controlled on metoprolol. Continue Eliquis. Obstructive sleep apnea-continue CPAP at night Diabetes mellitus-continue Metformin Hyperkalemia-DC potassium supplement Debility-PT consulted and recommended discharge home with HH for ongoing PT Morbid obesity-lifestyle modifications and weight loss discussed Code Status: DNR/DNI Stable for discharge home with close outpatient follow up and home healthcare services. - Additional Information Resuscitation Status: Do Not Resuscitate Discharge Diet: Cardiac, Diabetic Discharge Activity: Activity As Tolerated, Balance Activity w/Rest, Keep Legs Elevated Referrals: JATINDER SIU DO [NO LOCAL MD] - 02/29/20 9:00 am Prescriptions: Apixaban [Eliquis 5 mg Tablet] 5 mg PO BID #60 tablet Metoprolol Succinate 200 mg PO DAILY #30 tab.er.24h Home Medications: Atorvastatin Calcium [Lipitor 40 mg Tablet] 40 mg PO DAILY 04/27/16 Furosemide [Lasix] 20 mg PO DAILY 04/27/16 Famotidine [Pepcid 20 mg Tablet] 20 mg PO BID 02/12/20 Fluoxetine HCl [Sarafem] 10 mg PO DAILY 02/12/20 Fluticasone Propionate [Flonase Nasal [place] 50 Mcg/[place] 16 gm] 1 spray NASL BID 02/12/20 Metformin HCl [Glucophage 500 mg Tablet] 500 mg PO BID 02/12/20 Omeprazole 20 mg PO DAILY 02/12/20 Tamsulosin HCl [Flomax] 0.4 mg PO QAM 02/12/20 Isosorbide Mononitrate [Imdur 30 mg Tablet.er] 30 mg PO DAILY 02/13/20 Apixaban [Eliquis 5 mg Tablet] 5 mg PO BID #60 tablet 02/20/20 Metoprolol Succinate 200 mg PO DAILY #30 tab.er.24h 02/20/20 History of Present Illiness History of Present Illness: SUJATA GONSALEZ is a 69 year old male Physical Exam Vital Signs: Temp Pulse Resp BP Pulse Ox 97.8 F 92 16 102/61 96 02/20/20 15:44 02/20/20 15:44 02/20/20 15:44 02/20/20 15:44 02/20/20 15:44 Intake & Output 02/19/20 02/20/20 02/21/20 06:59 06:59 06:59 Intake Total 1040 1960 380 Output Total 3725 3100 700 Balance -5442 -3100 -549 Weight 173.2 kg 173.2 kg 173.2 kg Results Laboratory Results: WBC 8.9 10^3/uL (4.0-10.5) 02/20/20 07:16 RBC 5.03 10^6/uL (4.35-5.55) 02/20/20 07:16 Hgb 14.4 g/dL (13.5-17.0) 02/20/20 07:16 Hct 43.8 % (37.9-51.0) 02/20/20 07:16 MCV 87 fl (80-97) 02/20/20 07:16 MCH 28.7 pg (27.0-33.4) 02/20/20 07:16 MCHC 32.9 g/dL (32.0-36.0) 02/20/20 07:16 RDW 14.9 % (11.5-14.0) H 02/20/20 07:16 Plt Count 276 10^3/uL (150-450) 02/20/20 07:16 Lymph % (Auto) 8.2 % (13-45) L 02/15/20 06:18 Sunflower % (Auto) 6.6 % (3-13) 02/15/20 06:18 Eos % (Auto) 0.0 % (0-6) 02/15/20 06:18 Baso % (Auto) 0.0 % (0-2) 02/15/20 06:18 Absolute Neuts (auto) 6.5 10^3/uL (1.7-8.2) 02/15/20 06:18 Absolute Lymphs (auto) 0.6 10^3/uL (0.5-4.7) 02/15/20 06:18 Absolute Monos (auto) 0.5 10^3/uL (0.1-1.4) 02/15/20 06:18 Absolute Eos (auto) 0.0 10^3/uL (0.0-0.6) 02/15/20 06:18 Absolute Basos (auto) 0.0 10^3/uL (0.0-0.2) 02/15/20 06:18 Seg Neutrophils % 85.2 % (42-78) H 02/15/20 06:18 D-Dimer 0.63 ug/mL (0.00-0.50) H 02/18/20 06:51 Sodium 131.8 mmol/L (137-145) L 02/20/20 07:16 Potassium 5.3 mmol/L (3.6-5.0) H 02/20/20 07:16 Chloride 95 mmol/L (98-107) L 02/20/20 07:16 Carbon Dioxide 32 mmol/L (22-30) H 02/20/20 07:16 Anion Gap 5 (5-19) 02/20/20 07:16 BUN 42 mg/dL (7-20) H 02/20/20 07:16 Creatinine 0.69 mg/dL (0.52-1.25) 02/20/20 07:16 Est GFR ( Amer) > 60 (>60) 02/20/20 07:16 Est GFR (MDRD) Non-Af > 60 (>60) 02/20/20 07:16 Glucose 191 mg/dL (75-110) H 02/20/20 07:16 POC Glucose 204 mg/dL (70-110) H 02/20/20 11:18 Calcium 8.6 mg/dL (8.4-10.2) 02/20/20 07:16 Magnesium 2.0 mg/dL (1.6-2.3) 02/20/20 07:16 Ferritin 245.00 ng/mL (17.9-464.0) 02/18/20 06:51 Total Bilirubin 0.7 mg/dL (0.2-1.3) 02/18/20 06:51 Direct Bilirubin 0.3 mg/dL (0.0-0.4) 02/18/20 06:51 Neonat Total Bilirubin Not Reportable 02/18/20 06:51 Neonat Direct Bilirubin Not Reportable 02/18/20 06:51 Neonat Indirect Bili Not Reportable 02/18/20 06:51 AST 29 U/L (17-59) 02/18/20 06:51 ALT 39 U/L (<50) 02/18/20 06:51 Alkaline Phosphatase 68 U/L (38-126) 02/18/20 06:51 Troponin I 0.018 ng/mL 02/12/20 11:52 C-Reactive Protein 14.3 mg/L (<10.0) H 02/18/20 06:51 NT-Pro-B Natriuret Pep 156 pg/mL (<125) H 02/12/20 11:52 Total Protein 6.2 g/dL (6.3-8.2) L 02/18/20 06:51 Albumin 3.1 g/dL (3.5-5.0) L 02/18/20 06:51 Urine Color YELLOW 02/20/20 03:22 Urine Appearance CLEAR 02/20/20 03:22 Urine pH 6.0 (5.0-9.0) 02/20/20 03:22 Ur Specific [place] 1.018 02/20/20 03:22 Urine Protein NEGATIVE mg/dL (NEGATIVE) 02/20/20 03:22 Urine Glucose (UA) NEGATIVE mg/dL (NEGATIVE) 02/20/20 03:22 Urine Ketones NEGATIVE mg/dL (NEGATIVE) 02/20/20 03:22 Urine Blood NEGATIVE (NEGATIVE) 02/20/20 03:22 Urine Nitrite NEGATIVE (NEGATIVE) 02/20/20 03:22 Urine Bilirubin NEGATIVE (NEGATIVE) 02/20/20 03:22 Urine Urobilinogen 2.0 mg/dL (<2.0) H 02/20/20 03:22 Ur Leukocyte Esterase TRACE (NEGATIVE) H 02/20/20 03:22 Urine WBC (Auto) 4 /HPF 02/20/20 03:22 Urine RBC (Auto) 14 /HPF 02/20/20 03:22 Urine Bacteria (Auto) TRACE /HPF 02/20/20 03:22 Urine WBC Clumps RARE /HPF 02/12/20 12:55 Squamous Epi Cells Auto <1 /HPF 02/20/20 03:22 Urine Mucus (Auto) RARE /LPF 02/20/20 03:22 Urine Ascorbic Acid 40 (NEGATIVE) H 02/20/20 03:22 Kade Human Metapneumo PCR NOT DETECTED (NOT DETECT) 02/12/20 11:52 Adenovirus (PCR) NOT DETECTED (NOT DETECT) 02/12/20 11:52 B. pertussis DNA (PCR) NOT DETECTED (NOT DETECT) 02/12/20 11:52 B.parapertussis DNA PCR NOT DETECTED (NOT DETECT) 02/12/20 11:52 C. pneumoniae DNA (PCR) NOT DETECTED (NOT DETECT) 02/12/20 11:52 Coronavirus OC43 (PCR) NOT DETECTED (NOT DETECT) 02/12/20 11:52 Coronavirus HKU1 (PCR) NOT DETECTED (NOT DETECT) 02/12/20 11:52 Coronavirus 229E (PCR) NOT DETECTED (NOT DETECT) 02/12/20 11:52 Coronavirus NL63 (PCR) NOT DETECTED (NOT DETECT) 02/12/20 11:52 Influenza A (H1) PCR NOT DETECTED (NOT DETECT) 02/12/20 11:52 Influ A (H1N1/09) PCR NOT DETECTED (NOT DETECT) 02/12/20 11:52 Influenza A (H3) PCR NOT DETECTED (NOT DETECT) 02/12/20 11:52 Influenza Type A (PCR) NOT DETECTED (NOT DETECT) 02/12/20 11:52 Influenza Type B (PCR) NOT DETECTED (NOT DETECT) 02/12/20 11:52 M. pneumoniae (PCR) NOT DETECTED (NOT DETECT) 02/12/20 11:52 Parainfluenza 1 (PCR) NOT DETECTED (NOT DETECT) 02/12/20 11:52 Parainfluenza 2 (PCR) NOT DETECTED (NOT DETECT) 02/12/20 11:52 Parainfluenza 3 (PCR) NOT DETECTED (NOT DETECT) 02/12/20 11:52 Parainfluenza 4 (PCR) NOT DETECTED (NOT DETECT) 02/12/20 11:52 RSV (PCR) NOT DETECTED (NOT DETECT) 02/12/20 11:52 Entero/Rhino (PCR) NOT DETECTED (NOT DETECT) 02/12/20 11:52 SARS-CoV-2 (PCR) DETECTED (NOT DETECT) H 02/12/20 11:52 Blood Type A POSITIVE 02/17/20 12:58 02/12/20 11:52 Troponin I 0.018 NT-Pro-B Natriuret Pep 156 H Impressions: Chest X-Ray 02/12/20 12:15 IMPRESSION: PATCHY BILATERAL AIRSPACE DISEASE CONCERNING FOR PNEUMONIA. Chest X-Ray 02/20/20 00:00 IMPRESSION: Improved aeration since the prior. Stroke Is this a Stroke Patient?: No Acute Heart Failure Is this a Heart Failure Patient?: No
== END 2020-02-20 16:27 | disposition home health service (06) | DRG 177 ==
LOC: ER 11:36 → EH 15:00 → 4S 19:08
PROVIDERS: ADMIT Family Medicine; ATTEND Hospitalist
PROC: 5A09357 Assistance with Respiratory Ventilation, Less than 24 Consecutive Hours, Continuous Positive Airway Pressure (ICD-10-PCS; 2020-02-12)
PROC: XW13325 Transfusion of Convalescent Plasma (Nonautologous) into Peripheral Vein, Percutaneous Approach, New Technology Group 5 (ICD-10-PCS; principal; 2020-02-17)
DX: U07.1 COVID-19 (principal); J12.82 Pneumonia due to coronavirus disease 2019; J96.21 Acute and chronic respiratory failure with hypoxia; Z68.43 Body mass index [BMI] 50.0-59.9, adult; I50.32 Chronic diastolic (congestive) heart failure; J44.1 Chronic obstructive pulmonary disease with (acute) exacerbation; Z99.81 Dependence on supplemental oxygen; E11.51 Type 2 diabetes mellitus with diabetic peripheral angiopathy without gangrene; I11.0 Hypertensive heart disease with heart failure; E66.01 Morbid (severe) obesity due to excess calories; E87.5 Hyperkalemia; I48.91 Unspecified atrial fibrillation; G47.33 Obstructive sleep apnea (adult) (pediatric); R53.81 Other malaise; Z66 Do not resuscitate; E78.5 Hyperlipidemia, unspecified; K21.9 Gastro-esophageal reflux disease without esophagitis; M19.90 Unspecified osteoarthritis, unspecified site; F32.9 Major depressive disorder, single episode, unspecified; E65 Localized adiposity; K59.00 Constipation, unspecified; Z79.01 Long term (current) use of anticoagulants; Z79.84 Long term (current) use of oral hypoglycemic drugs; Z79.899 Other long term (current) drug therapy; Z87.01 Personal history of pneumonia (recurrent); Z83.3 Family history of diabetes mellitus; Z83.6 Family history of other diseases of the respiratory system; Z82.49 Family history of ischemic heart disease and other diseases of the circulatory system; Z88.0 Allergy status to penicillin
CPT/HCPCS: 0202U; 36415; 36430; 71045; 80048; 80053; 81001; 82728; 82962; 83735; 83880; 84484; 85025; 85027; 85379; 86140; 86900; 86901; 93005; 93010; 94660; 96374; 99285; J1650; J1815; J1940; J2920; J3490; J7030; J7060